=== PATIENT | female | born 1935 | race Caucasian/White ===

== ENCOUNTER 2018-11-18 06:14 | Inpatient (IN) | payer MEDICARE, BC ==
[2018-11-18 07:13] LABS: Basophils % (A) 0 %; Eosinophils # (A) 0.1 k/uL (0-0.7); Eosinophils % (A) 1 %; HGB 13.7 gm/dL (11.4-16.0); Lymphocytes # (A) 1.7 k/uL (1.0-4.8); Lymphocytes % (A) 18 %; MCH 30.4 pg (25.0-35.0); MCHC 32.6 g/dL (31.0-37.0); MCV 93.1 fL (80.0-100.0); Mean Platelet Volume 6.2; Monocytes # (A) 0.4 k/uL (0-1.0); Monocytes % (A) 4 %; Neutrophils # (A) 6.9 k/uL (1.3-7.7); Neutrophils % (A) 75 %; Platelet Count 271 k/uL (150-450); RBC 4.51 m/uL (3.80-5.40); RDW 13.2 % (11.5-15.5); WBC 9.2 k/uL (3.8-10.6)
--- NOTE | 2018-11-18 07:20 | XR ---
EXAMINATION TYPE: XR chest 2V DATE OF EXAM: 11/18/2018 COMPARISON: NONE HISTORY: Shortness of breath TECHNIQUE: Frontal and lateral views of the chest are obtained. FINDINGS: Underlying emphysematous changes are seen. Flattening of the diaphragms, increased retrost ernal airspace, and biapical lucency or present. Diffuse interstitial prominence is also seen. Minima l degenerative changes of the spine. Cardiomediastinal silhouette is enlarged. No pleural effusion or pneumothorax. IMPRESSION: Extensive emphysematous changes. Diffuse interstitial prominence is seen although chroni city is unknown without comparison. This could relate to chronic interstitial lung disease, interstit ial edema, or atypical pneumonia.
[2018-11-18] MEDS ORDERED: NITROGLYCERIN OINT 1 INCH/GM PACKET TOPICAL STA ×2 (07:22→07:31)
[2018-11-18] MEDS ORDERED: ASPIRIN 81 MG PO STA (07:22)
[2018-11-18 07:24] LABS: Albumin 3.8 g/dL (3.5-5.0); Total Bilirubin 1.6 mg/dL (0.2-1.3); Total Protein 6.8 g/dL (6.3-8.2)
[2018-11-18 07:27] LABS: INR 0.9 (<1.2); Partial Thromboplastin Time 23.7 sec (22.0-30.0); Prothrombin Time 9.8 sec (9.0-12.0)
--- NOTE | 2018-11-18 07:31 | ED ---
General Adult HPI - General Chief complaint: Chest Pain Stated complaint: Chest pressure Time Seen by Provider: 11/18/18 07:03 Source: patient, family, EMS, RN notes reviewed Mode of arrival: EMS Limitations: no limitations - History of Present Illness Initial comments: Patient is a pleasant 83-year-old female presenting to the emergency Department with complaints of chest pressure. Onset of symptoms was around 8:00 or so last night. Symptoms were noticed while walking stairs. Discomfort was moderate and persistent. Discomfort resolved) arrival to the emergency department and has remained so since that time. Patient did have associated dyspnea which is near resolved at this point. No nausea or diaphoresis. Patient did have similar symptoms years ago associated with previous stent. No leg pain or leg swelling. No cough or fever. Patient states her blood pressure is always high when she has come to the hospital or see her doctor. - Related Data Home Medications Medication Instructions Recorded Confirmed Aspirin EC [Ecotrin Low Dose] 81 mg PO HS 11/18/18 11/18/18 Atorvastatin Calcium [Lipitor] 10 mg PO HS 11/18/18 11/18/18 Lisinopril [Zestril] 5 mg PO DAILY 11/18/18 11/18/18 Lisinopril [Zestril] 10 mg PO HS 11/18/18 11/18/18 Metoprolol Succinate (ER) [Toprol 50 mg PO BID 11/18/18 11/18/18 Xl] Nitroglycerin Sl Tabs [Nitrostat] 0.4 mg SUBLINGUAL Q5M PRN 11/18/18 11/18/18 Spironolactone [Aldactone] 25 mg PO DAILY 11/18/18 11/18/18 Allergies Allergy/AdvReac Type Severity Reaction Status Date / Time No Known Allergies Allergy Verified 11/18/18 07:18 Review of Systems ROS Statement: Those systems with pertinent positive or pertinent negative responses have been documented in the HPI. ROS Other: All systems not noted in ROS Statement are negative. Constitutional: Denies: fever Eyes: Denies: eye pain ENT: Denies: ear pain Respiratory: Reports: dyspnea. Denies: cough Cardiovascular: Reports: as per HPI Endocrine: Denies: fatigue Gastrointestinal: Denies: abdominal pain Genitourinary: Denies: dysuria Musculoskeletal: Denies: back pain Skin: Denies: rash Neurological: Denies: weakness Past Medical History Past Medical History: Hyperlipidemia, Hypertension History of Any Multi-Drug Resistant Organisms: None Reported Past Surgical History: Heart Catheterization With Stent Past Psychological History: No Psychological Hx Reported Smoking Status: Former smoker Past Alcohol Use History: None Reported Past Drug Use History: None Reported General Exam Limitations: no limitations General appearance: alert, in no apparent distress Head exam: Present: atraumatic Eye exam: Present: normal appearance, PERRL ENT exam: Present: normal oropharynx Neck exam: Present: normal inspection Respiratory exam: Present: normal lung sounds bilaterally. Absent: chest wall tenderness Cardiovascular Exam: Present: regular rate, normal rhythm Expanded Peripheral pulses: 2+: Radial (R), Radial (L), Dorsalis Pedis (R), Dorsalis Pedis (L) GI/Abdominal exam: Present: soft. Absent: tenderness, guarding Extremities exam: Present: normal inspection. Absent: pedal edema, calf tenderness Neurological exam: Present: alert Psychiatric exam: Present: normal affect, normal mood Skin exam: Present: normal color Course Vital Signs 11/18/18 11/18/18 06:18 07:53 Temperature 97.8 F Pulse Rate 103 H 104 H Respiratory 21 18 Rate Blood Pressure 202/134 202/119 O2 Sat by Pulse 95 99 Oximetry EKG Findings - EKG Comments: EKG Findings:: EKG showed normal sinus rhythm 97. IN 190. QRS 142. QT 398. QTC 55. Normal axis. Left bundle branch block. Nonspecific ST-T. Medical Decision Making - Medical Decision Making Patient reevaluated and resting comfortably in bed. No discomfort at this time. Patient does state that she has had cold symptoms for several days that started as a sore throat however moved to her chest. Patient now has been coughing productive mucus. With chest x-ray findings patient will be covered with antibiotics as well. Patient does have mild elevation of troponin however history is concerning for an ST [facility]. Patient family updated on results and plan. Case discussed in detail with Dr. Morin, covering for hospital call, who will admit. - Lab Data Result diagrams: 11/18/18 06:54 11/18/18 06:54 Lab Results 11/18/18 11/18/18 11/18/18 Range/Units 06:54 06:54 06:54 WBC 9.2 (3.8-10.6) k/uL RBC 4.51 (3.80-5.40) m/uL Hgb 13.7 (11.4-16.0) gm/dL Hct 42.0 (34.0-46.0) % MCV 93.1 (80.0-100.0) fL MCH 30.4 (25.0-35.0) pg MCHC 32.6 (31.0-37.0) g/dL RDW 13.2 (11.5-15.5) % Plt Count 271 (150-450) k/uL Neutrophils % 75 % Lymphocytes % 18 % Monocytes % 4 % Eosinophils % 1 % Basophils % 0 % Neutrophils # 6.9 (1.3-7.7) k/uL Lymphocytes # 1.7 (1.0-4.8) k/uL Monocytes # 0.4 (0-1.0) k/uL Eosinophils # 0.1 (0-0.7) k/uL Basophils # 0.0 (0-0.2) k/uL PT 9.8 (9.0-12.0) sec INR 0.9 (<1.2) APTT 23.7 (22.0-30.0) sec D-Dimer (<0.60) mg/L FEU Sodium 140 (137-145) mmol/L Potassium 4.0 (3.5-5.1) mmol/L Chloride 105 (98-107) mmol/L Carbon Dioxide 26 (22-30) mmol/L Anion Gap 9 mmol/L BUN 20 H (7-17) mg/dL Creatinine 1.22 H (0.52-1.04) mg/dL Est GFR (CKD-EPI)AfAm 48 (>60 ml/min/1.73 sqM) Est GFR (CKD-EPI)NonAf 41 (>60 ml/min/1.73 sqM) Glucose 128 H (74-99) mg/dL Calcium 9.0 (8.4-10.2) mg/dL Magnesium (1.6-2.3) mg/dL Total Bilirubin 1.6 H (0.2-1.3) mg/dL AST 26 (14-36) U/L ALT 19 (9-52) U/L Alkaline Phosphatase 92 (38-126) U/L Troponin I (0.000-0.034) ng/mL Total Protein 6.8 (6.3-8.2) g/dL Albumin 3.8 (3.5-5.0) g/dL 11/18/18 11/18/18 11/18/18 Range/Units 06:54 06:54 06:54 WBC (3.8-10.6) k/uL RBC (3.80-5.40) m/uL Hgb (11.4-16.0) gm/dL Hct (34.0-46.0) % MCV (80.0-100.0) fL MCH (25.0-35.0) pg MCHC (31.0-37.0) g/dL RDW (11.5-15.5) % Plt Count (150-450) k/uL Neutrophils % % Lymphocytes % % Monocytes % % Eosinophils % % Basophils % % Neutrophils # (1.3-7.7) k/uL Lymphocytes # (1.0-4.8) k/uL Monocytes # (0-1.0) k/uL Eosinophils # (0-0.7) k/uL Basophils # (0-0.2) k/uL PT (9.0-12.0) sec INR (<1.2) APTT (22.0-30.0) sec D-Dimer 0.75 H (<0.60) mg/L FEU Sodium (137-145) mmol/L Potassium (3.5-5.1) mmol/L Chloride (98-107) mmol/L Carbon Dioxide (22-30) mmol/L Anion Gap mmol/L BUN (7-17) mg/dL Creatinine (0.52-1.04) mg/dL Est GFR (CKD-EPI)AfAm (>60 ml/min/1.73 sqM) Est GFR (CKD-EPI)NonAf (>60 ml/min/1.73 sqM) Glucose (74-99) mg/dL Calcium (8.4-10.2) mg/dL Magnesium 1.9 (1.6-2.3) mg/dL Total Bilirubin (0.2-1.3) mg/dL AST (14-36) U/L ALT (9-52) U/L Alkaline Phosphatase (38-126) U/L Troponin I 0.063 H* (0.000-0.034) ng/mL Total Protein (6.3-8.2) g/dL Albumin (3.5-5.0) g/dL - Radiology Data Radiology results: image reviewed (Two-view chest x-ray shows chronic emphysematous changes and interstitial prominence.) Critical Care Time Critical Care Time: Yes Total Critical Care Time: 32 Disposition Clinical Impression: NSTEMI (non-ST elevated myocardial infarction) Disposition: ADMITTED IP TO THIS [facility] Condition: Serious Is patient prescribed a controlled substance at d/c from ED?: No Referrals: Gerry Gill DO [Primary Care Provider] - 1-2 days Decision Time: 08:09
[2018-11-18] MEDS ORDERED: HEPARIN SODIUM,PORCINE 5,000 UNIT/ML 1 ML VIAL IV ONE ×2 (08:20→23:30)
[2018-11-18] MEDS ORDERED: NITROGLYCERIN SL TABS 0.4 MG TAB SUBLINGUAL PRN ×2 (08:20→12:11)
[2018-11-18] MEDS ORDERED: HEPARIN SODIUM,PORCINE 5,000 UNIT/ML 1 ML VIAL IV PRN (08:20)
[2018-11-18] MEDS ORDERED: AZITHROMYCIN 500 MG in SODIUM CHLORIDE 0.9% 250 ML IVPB STA (08:20)
[2018-11-18] MEDS ORDERED: PNEUMONIA PROTOCOL UTILIZED 1 EACH MISC PO PRN (08:20)
--- NOTE | 2018-11-18 12:10 | P.CRDCN ---
History of Present Illness Consult date: 11/18/18 History of present illness: This is a 83-year-old female with history of ischemic heart disease with previous stent placement done about 5 years ago. Apparently at that time patient of was having symptoms of shortness of breath that led for further evaluation and stent placement. Patient has done well over the last 5 years. It looks like that for the last several days patient has been having intermittent shortness of breath. Yesterday she was trying to climb status and started having shortness of breath that relieved after prolonged time with rest. Patient slept in the chair, Whole night. She did also take nitroglycerin sublingual at around 11 PM last night because he was having some discomfort. This morning at 5:00, her symptoms got worse and finally patient came to the emergency room. Patient was treated with Nitropaste and heparin with improvement of her symptoms. Patient is comfortable at this time. Her troponin values showed elevation, probably consistent with non-STEMI. Patient is advised to have a cardiac catheterization. Her EKG shows a left bundle-branch block pattern. At this point patient wants to wait until further tests come in, before deciding to have catheterization. We'll we will continue with beta blockers, nitrates, heparin and aspirin and probably Plavix. We'll wait for the results of the echocardiogram. Further recommendation will depend upon clinical course. Patient's daughter is also present during discussion with the patient. 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 History of Any Multi-Drug Resistant Organisms: None Reported Past Surgical History: Heart Catheterization With Stent Additional Past Surgical History / Comment(s): 04/09/14 PCI with stent, brain surgery to remove cyst, L clavicle surgery with hardware-since removed, skin cancer removed from upper lip, bilateral cataract removals/lens implants, colonoscopy. Past Anesthesia/Blood Transfusion Reactions: No Reported Reaction Date of Last Stent Placement:: 04/09/14 Smoking Status: Former smoker - Past Family History Father Family Medical History: Cancer Additional Family Medical History / Comment(s): Father of throat cancer at the age of 76yrs. Mother Additional Family Medical History / Comment(s): Mother at the age of 92yrs. She had ulcers and depression. Medications and Allergies Home Medications Medication Instructions Recorded Confirmed Type Aspirin EC [Ecotrin Low Dose] 81 mg PO HS 11/18/18 11/18/18 History Atorvastatin Calcium [Lipitor] 10 mg PO HS 11/18/18 11/18/18 History Lisinopril [Zestril] 5 mg PO DAILY 11/18/18 11/18/18 History Lisinopril [Zestril] 10 mg PO HS 11/18/18 11/18/18 History Metoprolol Succinate (ER) [Toprol 50 mg PO BID 11/18/18 11/18/18 History Xl] Nitroglycerin Sl Tabs [Nitrostat] 0.4 mg SUBLINGUAL Q5M PRN 11/18/18 11/18/18 History Spironolactone [Aldactone] 25 mg PO DAILY 11/18/18 11/18/18 History Allergies Allergy/AdvReac Type Severity Reaction Status Date / Time No Known Allergies Allergy Verified 11/18/18 07:18 Physical Exam Vitals: Vital Signs Temp Pulse Resp BP Pulse Ox 11/18/18 08:30 80 27 H 205/115 97 11/18/18 08:00 91 7 L 207/119 96 11/18/18 07:53 104 H 18 202/119 99 11/18/18 07:30 98 7 L 209/133 95 11/18/18 07:00 100 15 215/124 11/18/18 06:30 202/134 96 11/18/18 06:20 93 L 11/18/18 06:18 97.8 F 103 H 21 202/134 95 Intake and Output 11/17/18 11/18/18 11/18/18 22:59 06:59 14:59 Other: Weight 58.967 kg GENERAL EXAM: Patient is alert and oriented and doesn't appear to be in any acute distress HEENT: Normocephalic. Normal reaction of pupils, equal size, normal range of extraocular motion. No erythema or exudates in the throat. NECK: No masses, no nuchal rigidity. CHEST: No chest wall deformity. LUNGS: Equal air entry with no crackles or wheeze. HEART: S1 and S2 normal with no audible mumurs or gallops. Regular rhythm, femorals equal on both sides.. ABDOMEN: No hepatosplenomegaly, normal bowel sounds, no guarding or rigidity. SKIN: No rashes CENTRAL NERVOUS SYSTEM: No focal deficits. EXTREMITIES: No cyanosis, clubbing or edema. Results 11/18/18 06:54 11/18/18 06:54 Cardiac Enzymes 11/18/18 11/18/18 11/18/18 Range/Units 06:54 06:54 08:49 AST 26 (14-36) U/L Troponin I 0.063 H* 0.847 H* (0.000-0.034) ng/mL Coagulation 11/18/18 11/18/18 Range/Units 06:54 08:49 PT 9.8 (9.0-12.0) sec APTT 23.7 23.7 (22.0-30.0) sec CBC 11/18/18 Range/Units 06:54 WBC 9.2 (3.8-10.6) k/uL RBC 4.51 (3.80-5.40) m/uL Hgb 13.7 (11.4-16.0) gm/dL Hct 42.0 (34.0-46.0) % Plt Count 271 (150-450) k/uL Comprehensive Metabolic Panel 11/18/18 Range/Units 06:54 Sodium 140 (137-145) mmol/L Potassium 4.0 (3.5-5.1) mmol/L Chloride 105 (98-107) mmol/L Carbon Dioxide 26 (22-30) mmol/L BUN 20 H (7-17) mg/dL Creatinine 1.22 H (0.52-1.04) mg/dL Glucose 128 H (74-99) mg/dL Calcium 9.0 (8.4-10.2) mg/dL AST 26 (14-36) U/L ALT 19 (9-52) U/L Alkaline Phosphatase 92 (38-126) U/L Total Protein 6.8 (6.3-8.2) g/dL Albumin 3.8 (3.5-5.0) g/dL Current Medications Generic Name Dose Route Start Last Admin Trade Name Freq PRN Reason Stop Dose Admin Albuterol/Ipratropium 3 ml 11/18/18 08:20 Duoneb 0.5 Mg-3 Mg/3 Ml Soln INHALATION RT-Q4H PRN shortness of breath Aspirin 325 mg 11/19/18 09:00 Aspirin PO DAILY [facility] Azithromycin 500 mg 11/19/18 09:00 Zithromax PO DAILY [facility] Heparin Sodium (Porcine) 0 unit 11/18/18 08:20 Heparin IV Q6HR PRN Low PTT Protocol Ceftriaxone Sodium 1 gm/ 50 mls @ 100 mls/hr 11/19/18 09:00 Sodium Chloride IVPB 11/22/18 09:01 Q24HR JOSE Heparin Sodium/Sodium Chloride 250 mls @ 7.076 mls/hr 11/18/18 08:30 25,000 unit/ Sodium Chloride IV .Q24H JOSE Protocol 12 UNITS/KG/HR Miscellaneous Information 1 each 11/18/18 08:20 Pneumonia Protocol Utilized PO ONCE PRN Per Protocol Nitroglycerin 1 inch 11/18/18 12:00 Nitro-Bid Oint TOPICAL Q6HR [facility] Nitroglycerin 0.4 mg 11/18/18 08:20 Nitrostat SUBLINGUAL Q5M PRN Chest Pain Intake and Output 11/17/18 11/18/18 11/18/18 22:59 06:59 14:59 Other: Weight 58.967 kg 11/18/18 06:54 11/18/18 06:54 EKG Interpretations (text) Sinus rhythm with a left bundle branch block pattern Assessment and Plan (1) Ischemic heart disease Current Visit: Yes Status: Acute Code(s): I25.9 - CHRONIC ISCHEMIC HEART DISEASE, UNSPECIFIED SNOMED Code(s): 818733230 (2) NSTEMI (non-ST elevated myocardial infarction) Current Visit: Yes Status: Acute Code(s): I21.4 - NON-ST ELEVATION (NSTEMI) MYOCARDIAL INFARCTION SNOMED Code(s): 48950712 (3) Chronic renal failure Current Visit: Yes Status: Acute Code(s): N18.9 - CHRONIC KIDNEY DISEASE, UNSPECIFIED SNOMED Code(s): 75846510 Plan: Continue with the nitrates, beta blockers, aspirin, Plavix and heparin. Follow echocardiogram reports. Patient is advised to have a cardiac catheterization but at this time, Patient wants to wait until further reports coming. Prognosis is guarded
[2018-11-18] MEDS ORDERED: FUROSEMIDE 10 MG/ML 4 ML VIAL IV SCH (12:30)
[2018-11-18] MEDS: HEPARIN SOD,PORK IN 0.45% NACL 25,000 UNIT in 0.45% NACL 1 250ML.BAG IV SCH ×2 (13:34→23:40)
[2018-11-18] MEDS: NITROGLYCERIN OINT 1 INCH/GM PACKET TOPICAL SCH ×3 (13:34→23:47)
[2018-11-18] MEDS ORDERED: fentaNYL (PF) 50 MCG/ML 2 ML AMP ONE (14:21)
[2018-11-18] MEDS ORDERED: VERAPAMIL 2.5 MG/ML 2 ML AMP ONE (14:21)
[2018-11-18] MEDS ORDERED: LIDOCAINE 1% INJ 10MG/ML (20 ML MDV) ONE (14:21)
[2018-11-18] MEDS ORDERED: HEPARIN SODIUM 1,000 UN/ML (10ML VL) ONE (14:22)
--- NOTE | 2018-11-18 14:29 | P.HPIM ---
History of Present Illness 81-year-old the pleasant female with known history of coronary disease and stenting at 5 years ago came in with comments of shortness of breath and palpitations patient has similar symptoms in the past patient was complaining of orthopnea as well. Patient does have pulmonary edema on the chest x-ray does have an elevated troponins of 0.845 and patient denied any obvious chest pain patient denied any nausea lightheadedness denied any cough., EKG showed left bundle branch block pattern. Patient was treated with nitro paste and IV heparin and patient was recommended to have cardiac catheterization patient is still let considering that patient and family has a lot of patience regarding Cardiac catheterization which I'm able to answer. She started having symptoms the last night and the patient has shortness of breath with ambulation. 's blood pressures found to be very high in systolics of 200 patient blood pressur es normally high as per the patient. During her last hospitalization it went up to as high as 300 Review of Systems REVIEW OF SYSTEMS: CONSTITUTIONAL: No fever, no malaise, no fatigue. HEENT: No recent visual problems or hearing problems. Denied any sore throat. CARDIOVASCULAR:no syncope. PULMONARY: no cough, no hemoptysis. GASTROINTESTINAL: No diarrhea, no nausea, no vomiting, no abdominal pain. NEUROLOGICAL: No headaches, no weakness, no numbness. HEMATOLOGICAL: Denies any bleeding or petechiae. GENITOURINARY: Denies any burning micturition, frequency, or urgency. MUSCULOSKELETAL/RHEUMATOLOGICAL: Denies any joint pain, swelling, or any muscle pain. ENDOCRINE: Denies any polyuria or polydipsia. The rest of the 14-point review of systems is negative. 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 History of Any Multi-Drug Resistant Organisms: None Reported Past Surgical History: Heart Catheterization With Stent Additional Past Surgical History / Comment(s): 04/09/14 PCI with stent, brain surgery to remove cyst, L clavicle surgery with hardware-since removed, skin cancer removed from upper lip, bilateral cataract removals/lens implants, colonoscopy. Past Anesthesia/Blood Transfusion Reactions: No Reported Reaction Date of Last Stent Placement:: 04/09/14 Smoking Status: Former smoker - Past Family History Father Family Medical History: Cancer Additional Family Medical History / Comment(s): Father of throat cancer at the age of 76yrs. Mother Additional Family Medical History / Comment(s): Mother at the age of 92yrs. She had ulcers and depression. Medications and Allergies Home Medications Medication Instructions Recorded Confirmed Type Aspirin EC [Ecotrin Low Dose] 81 mg PO HS 11/18/18 11/18/18 History Atorvastatin Calcium [Lipitor] 10 mg PO HS 11/18/18 11/18/18 History Lisinopril [Zestril] 5 mg PO DAILY 11/18/18 11/18/18 History Lisinopril [Zestril] 10 mg PO HS 11/18/18 11/18/18 History Metoprolol Succinate (ER) [Toprol 50 mg PO BID 11/18/18 11/18/18 History Xl] Nitroglycerin Sl Tabs [Nitrostat] 0.4 mg SUBLINGUAL Q5M PRN 11/18/18 11/18/18 History Spironolactone [Aldactone] 25 mg PO DAILY 11/18/18 11/18/18 History Allergies Allergy/AdvReac Type Severity Reaction Status Date / Time No Known Allergies Allergy Verified 11/18/18 07:18 Physical Exam Vitals: Vital Signs Temp Pulse Resp BP Pulse Ox 11/18/18 12:18 102 H 26 H 179/113 11/18/18 12:00 102 H 26 H 179/113 11/18/18 11:30 92 20 189/106 11/18/18 11:00 82 20 186/112 96 11/18/18 10:30 88 17 198/111 96 11/18/18 10:00 81 16 186/112 96 11/18/18 09:30 86 12 193/110 11/18/18 09:00 84 27 H 196/102 97 11/18/18 08:30 80 27 H 205/115 97 11/18/18 08:00 91 7 L 207/119 96 11/18/18 07:53 104 H 18 202/119 99 11/18/18 07:30 98 7 L 209/133 95 11/18/18 07:00 100 15 215/124 11/18/18 06:30 202/134 96 11/18/18 06:20 93 L 11/18/18 06:18 97.8 F 103 H 21 202/134 95 Intake and Output 11/17/18 11/18/18 11/18/18 22:59 06:59 14:59 Other: Weight 58.967 kg PHYSICAL EXAMINATION: GENERAL: The patient is alert and oriented x3, not in any acute distress. Well developed, well nourished. HEENT: Pupils are round and equally reacting to light. EOMI. No scleral icterus. No conjunctival pallor. Normocephalic, atraumatic. No pharyngeal erythema. No thyromegaly. CARDIOVASCULAR: S1 and S2 present. No murmurs, rubs, or gallops. As have elevated JVD PULMONARY: Does have bibasilar crackles. ABDOMEN: Soft, nontender, nondistended, normoactive bowel sounds. No palpable organomegaly. MUSCULOSKELETAL: No joint swelling or deformity. EXTREMITIES: No cyanosis, clubbing, or pedal edema. NEUROLOGICAL: Gross neurological examination did not reveal any focal deficits. SKIN: No rashes. Results CBC & Chem 7: 11/18/18 06:54 11/18/18 06:54 Labs: Abnormal Lab Results - Last 24 Hours (Table) 11/18/18 11/18/18 11/18/18 Range/Units 06:54 06:54 06:54 D-Dimer 0.75 H (<0.60) mg/L FEU BUN 20 H (7-17) mg/dL Creatinine 1.22 H (0.52-1.04) mg/dL Glucose 128 H (74-99) mg/dL Total Bilirubin 1.6 H (0.2-1.3) mg/dL Troponin I 0.063 H* (0.000-0.034) ng/mL 11/18/18 Range/Units 08:49 D-Dimer (<0.60) mg/L FEU BUN (7-17) mg/dL Creatinine (0.52-1.04) mg/dL Glucose (74-99) mg/dL Total Bilirubin (0.2-1.3) mg/dL Troponin I 0.847 H* (0.000-0.034) ng/mL Thrombosis Risk Factor Assmnt - Choose All That Apply Any of the Below Risk Factors Present?: Yes Each Factor Represents 1 point: Acute SD Other Risk Factors: Yes Each Risk Factor Represents 2 Points: Malignancy Each Risk Factor Represents 3 Points: Age 75 years or older Other congenital or acquired thrombophilia - If yes, enter type in comment: No Thrombosis Risk Factor Assessment Total Risk Factor Score: 6 Thrombosis Risk Factor Assessment Level: High Risk Assessment and Plan Plan: -Shortness of breath, palpitations anginal equal: Nondistended mitral infarction cannot be ruled out patient does have elevated troponin and initial one being 0.063 second one 0.847 patient was recommended to have cardiac catheterization patient didn't make any dictation yet patient was started on beta don lisinopril antiplatelet therapy at this time. -Shortness of breath: Secondary to congestive heart failure probably has systolic dysfunction can be acute with pulmonary edema patient was started on Lasix -Sinus tachycardia for which patient was started on beta don can be related to myocardial infarction as mentioned above -Renal failure unsure whether patient has acute on chronic kidney disease, patient does have heart failure exacerbation can be acute kidney injury from that and expected to improve with IV Lasix patient was started on IV Lasix. Echocardiogram is being obtained -Elevated d-dimer which is a nonspecific test pretest probability for pulmonary embolism in her situation is low considering that we have an alternate diagnosis of pulmonary edema causing shortness of breath I do not believe CT angios of the the chest is necessary at this time. -Uncontrolled accelerated hypertension I cannot rule out hypertensive emergency testing her chest pain myocardial infarction pulmonary edema. Her blood pressures come down because of which I do not believe patient will require IV nitroglycerin at this time lisinopril will be continued along with beta don Patient will need pharmacologic prophylaxis
--- NOTE | 2018-11-18 14:30 | P.DS ---
Providers Date of admission: 11/18/18 08:20 Attending physician: Gregory Morin Consults: 11/18/18 08:20 Consult Physician Urgent Consulting Provider: Rhett Ortez Consult Reason/Comments: nstemi Do you want consulting provider notified?: Yes Primary care physician: Gerry Gill Hospital Course: As mentioned in HPI Patient Condition at Discharge: Serious Plan - Discharge Summary Discharge Rx Participant: No New Discharge Prescriptions: No Action Spironolactone [Aldactone] 25 mg PO DAILY Nitroglycerin Sl Tabs [Nitrostat] 0.4 mg SUBLINGUAL Q5M PRN PRN Reason: Chest Pain Lisinopril [Zestril] 10 mg PO HS Lisinopril [Zestril] 5 mg PO DAILY Metoprolol Succinate (ER) [Toprol Xl] 50 mg PO BID Atorvastatin Calcium [Lipitor] 10 mg PO HS Aspirin EC [Ecotrin Low Dose] 81 mg PO HS Discharge Medication List Aspirin EC [Ecotrin Low Dose] 81 mg PO HS 11/18/18 [History] Atorvastatin Calcium [Lipitor] 10 mg PO HS 11/18/18 [History] Lisinopril [Zestril] 5 mg PO DAILY 11/18/18 [History] Lisinopril [Zestril] 10 mg PO HS 11/18/18 [History] Metoprolol Succinate (ER) [Toprol Xl] 50 mg PO BID 11/18/18 [History] Nitroglycerin Sl Tabs [Nitrostat] 0.4 mg SUBLINGUAL Q5M PRN 11/18/18 [History] Spironolactone [Aldactone] 25 mg PO DAILY 11/18/18 [History] Follow up Appointment(s)/Referral(s): Gerry Gill DO [Primary Care Provider] - 1-2 days
[2018-11-18] MEDS ORDERED: METOPROLOL TARTRATE 5 MG/5 ML VIAL IVP ONE ×2 (14:37→14:41)
[2018-11-18] MEDS ORDERED: MIDAZOLAM (PF) 2 MG/2 ML VIAL IVP ONE (14:40)
[2018-11-18] MEDS ORDERED: fentaNYL (PF) 50 MCG/ML 2 ML AMP IV ONE (14:40)
[2018-11-18] MEDS ORDERED: IV FLUID CONTINUATION 350 ML IV ONE (14:41)
[2018-11-18] MEDS ORDERED: LIDOCAINE 1% INJ 10MG/ML (20 ML MDV) SQ ONE (14:44)
[2018-11-18] MEDS ORDERED: NITROGLYCERIN OINT 1 INCH/GM PACKET TOPICAL ONE (14:49)
[2018-11-18] MEDS ORDERED: IOPAMIDOL-370 125ML BTL INJ ONE (14:56)
[2018-11-18] MEDS ORDERED: amLODIPine 5 MG TAB ONE (14:59)
[2018-11-18] MEDS ORDERED: amLODIPine 5 MG TAB PO ONE (15:01)
[2018-11-18] MEDS ORDERED: RX INFO: IV CONTRAST WAS GIVEN 1 EACH MISC MISCELLANE PRN (15:08)
--- NOTE | 2018-11-18 15:21 | P.CARDCATH ---
Date of Procedure: 11/18/18 Preoperative Diagnosis: Non-STEMI Postoperative Diagnosis: Mild diffuse coronary artery disease without any critical lesions Procedure(s) Performed: Left heart catheterization without left ventriculography Description of Procedure: HISTORY: This is a 83-year-old female with history of ischemic heart disease and previous stent placement of the left anterior descending coronary artery who came to the hospital with complaints of increasing exertional shortness of breath over the last several days. Yesterday evening at 4:00 patient had more severe episode of shortness of breath. She is also complaining of some right arm discomfort. This morning at 5:00 patient called ambulance because of severe shortness of breath and was brought to the hospital. Her EKG showed left bundle-branch block. Her troponins were mildly elevated. In view of her previous coronary artery disease and abnormal troponins and ongoing symptoms, patient is advised to have cardiac catheterization for definitive diagnosis. CONSENT:I have discussed the risks, benefits and alternative therapies for the above-mentioned procedure and for both sedation/analgesia as well as necessary blood product administration, if indicated, as they pertain to this patient. The patient has indicated understanding and acceptance of the risks and procedures discussed. PROCEDURE: Patient was brought to the lab in a fasting state. Patient was given some IV sedation. The right groin is infiltrated with lidocaine and right femoral artery was entered using Seldinger technique. A 6-[place] catheter was left in place and selective coronary arteriography was performed. Patient tolerated the procedure well. Femoral angiogram was performed and Angio-Seal was applied for hemostasis. No immediate complications were noted and patient was transferred to [facility] in a stable condition Conscious Sedation: Versed 0.5mg Fentanyl 25 g Duration 20minutes HEMODYNAMICS: Aortic pressure is about 160-180/9o to 100. Patient received IV Lopressor and Nitropaste and also Norvasc. Left ankle end-diastolic pressure is about 12-16 SELECTIVE CORONARY ARTERIOGRAPHY: LEFT MAIN: Normal length and free of occlusive disease THE LEFT ANTERIOR DESCENDING CORONARY ARTERY:. This is a good caliber vessel with patent stent in the proximal portion. There is about 30-40% narrowing of the stent in the proximal portion . The mid LAD also has about 30-40% lesion. However there doesn't seem to be any critical lesion in the LAD or its branches. The diagonal branch has mild disease proximally. THE LEFT CIRCUMFLEX AND IS CORONARY ARTERY: This is a good caliber vessel giving rise good-sized OM branch. The OM branch is about 30% stenosis proximally. There is calcification noted in the coronary system THE RIGHT CORONARY ARTERY: This is a good caliber vessel giving rise good-sized PDA and PLV. There is mild diffuse disease in the mid and distal portion of the LAD with areas of about 30-40% stenosis. No critical lesions noted LEFT VENTRICULOGRAPHY:. Not performed FINAL IMPRESSION:. Noncritical diffuse disease with patent stent in the LAD PLAN:. Medical therapy and this factor modification PROGNOSIS:. Good
[2018-11-18] MEDS: SODIUM CHLORIDE 0.9% 1,000 ML IV SCH ×2 (16:23→17:31)
[2018-11-18] MEDS: cloNIDine HCL 0.1 MG TAB PO SCH (16:46)
--- NOTE | 2018-11-18 19:34 | ECHOF ---
Referral Reason:nstemi MEASUREMENTS -------- HEIGHT: 157.5 cm WEIGHT: 59.0 kg BP: 202/119 RVIDd: 2.4 cm (< 3.3) IVSd: 1.6 cm (0.6 - 1.1) LVIDd: 4.1 cm (3.9 - 5.3) LVPWd: 1.7 cm (0.6 - 1.1) IVSs: 1.8 cm LVIDs: 3.4 cm LVPWs: 1.8 cm LAESV Index (A-L): 43.95 ml/m Ao Diam: 2.6 cm (2.0 - 3.7) AV Cusp: 1.7 cm (1.5 - 2.6) LA Diam: 4.5 cm (2.7 - 3.8) EPSS: 1.2 cm MV E Evans: 1.07 m/s MV DecT: 91 ms MV A Evans: 0.77 m/s MV E/A Ratio: 1.38 AR PHT: 834 ms RAP: 5.00 mmHg RVSP: 37.06 mmHg %FS: 20.33 % EDV(Teich): 132.22 ml EF(Teich): 41.23 % ESV(Teich): 77.70 ml IVSd: 1.59 cm (0.6 - 1.1) IVSs: 1.93 cm LVIDd: 5.25 cm (3.9 - 5.3) LVIDs: 4.18 cm LVPWd: 1.44 cm (0.6 - 1.1) LVPWs: 1.67 cm MV EF SLOPE: 135.55 mm/s (70 - 150) MV EXCURSION: 1.44 cm (> 18.000) SV(Teich): 54.52 ml FINDINGS -------- LBBB This was a technically good study. The left ventricular size is normal. There is moderate concentric left ventricular hypertrophy. O verall left ventricular systolic function is moderate-severely impaired with, an EF between 30 - 35 % . Can not exclude Noncompaction cardiomyopathy. Basal anterior LV wall motion is hypokinetic. Basal inferior LV wall motion is hypokinetic. Basal inferoseptal LV wall motion is hypokinetic. Basal anteroseptal LV wall motion is hypokinetic. Mid anterior LV wall motion is hypokinetic. Mid inferior LV wall motion is hypokinetic. Mid inferoseptal LV wall motion is hypokinetic. Mid anteroseptal LV wall motion is hypokinetic. Apical inferior LV wall motion is hypokinetic. The right ventricle is normal in size. Left atrium is severely dilated by volume. The right atrial size is normal. Interatrial and interventricular septum intact. Trace amount of aortic regurgitation. Can't exclude possible bicuspid aortic valve. Mild mitral annular calcification present. Moderate mitral regurgitation is present. Mild tricuspid regurgitation present. There is mild pulmonary hypertension. The right ventricular systolic pressure, as measured by Doppler, is 37.06mmHg. The aortic root size is normal. The inferior vena cava was not well visualized. There is a small, generalized pericardial effusion present. CONCLUSIONS -------- 1. LBBB 2. This was a technically good study. 3. The left ventricular size is normal. 4. There is moderate concentric left ventricular hypertrophy. 5. Overall left ventricular systolic function is moderate-severely impaired with, an EF between 30 - 35 %. 6. Can not exclude Noncompaction cardiomyopathy. 7. Basal anterior LV wall motion is hypokinetic. 8. Basal inferior LV wall motion is hypokinetic. 9. Basal inferoseptal LV wall motion is hypokinetic. 10. Basal anteroseptal LV wall motion is hypokinetic. 11. Mid anterior LV wall motion is hypokinetic. 12. Mid inferior LV wall motion is hypokinetic. 13. Mid inferoseptal LV wall motion is hypokinetic. 14. Mid anteroseptal LV wall motion is hypokinetic. 15. Apical inferior LV wall motion is hypokinetic. 16. The right ventricle is normal in size. 17. Left atrium is severely dilated by volume. 18. The right atrial size is normal. 19. Interatrial and interventricular septum intact. 20. Trace amount of aortic regurgitation. 21. Can't exclude possible bicuspid aortic valve. 22. Mild mitral annular calcification present. 23. Moderate mitral regurgitation is present. 24. Mild tricuspid regurgitation present. 25. There is mild pulmonary hypertension. 26. The right ventricular systolic pressure, as measured by Doppler, is 37.06mmHg. 27. The aortic root size is normal. 28. The inferior vena cava was not well visualized. PUMP INSTALLER: Vanita Whaley RDCS
[2018-11-18] MEDS: ATORVASTATIN 10 MG TAB PO SCH (20:10)
[2018-11-18] MEDS: FUROSEMIDE 10 MG/ML 2 ML VIAL IV SCH (20:10)
[2018-11-18] MEDS: METOPROLOL SUCCINATE (ER) 50 MG TAB.ER.24H PO SCH (20:10)
[2018-11-18] MEDS: LISINOPRIL 10 MG TAB PO SCH (20:10)
[2018-11-18] MEDS: ASPIRIN 81 MG PO SCH (20:10)
[2018-11-18] MEDS ORDERED: DILTIAZEM DRIP BOLUS FROM BAG 1 MG SOLN IV ONE (23:08)
[2018-11-18] MEDS ORDERED: DILTIAZEM 125 MG in SODIUM CHLORIDE 0.9% 100 ML IV SCH (23:30)
[2018-11-18] MEDS ORDERED: HEPARIN SOD,PORK IN 0.45% NACL 25,000 UNIT in 0.45% NACL 1 250ML.BAG IV SCH (23:30)
[2018-11-19 03:37] LABS: Mean Platelet Volume 6.7; Platelet Count 255 k/uL (150-450)
[2018-11-19 03:59] LABS: Calcium 8.5 mg/dL (8.4-10.2); Potassium 4.2 mmol/L (3.5-5.1)
[2018-11-19] MEDS ORDERED: HEPARIN SODIUM,PORCINE 5,000 UNIT/ML 1 ML VIAL IV PRN (05:00)
[2018-11-19] MEDS: NITROGLYCERIN OINT 1 INCH/GM PACKET TOPICAL SCH (05:18)
[2018-11-19] MEDS ORDERED: ASPIRIN 325 MG TAB PO SCH (09:00)
[2018-11-19] MEDS ORDERED: AZITHROMYCIN 500 MG TAB PO SCH (09:00)
--- NOTE | 2018-11-19 09:21 | XR ---
EXAMINATION TYPE: XR chest 2V DATE OF EXAM: 11/19/2018 COMPARISON: Prior chest x-ray 11/18/2018 HISTORY: Pneumonia TECHNIQUE: Frontal and lateral views of the chest are obtained. FINDINGS: Aorta is dense and tortuous. Heart is enlarged and stable. Hyperinflation is noted within the lungs. There are overlying cardiac leads. No evident pneumothorax or pleural effusion. Luminary v ascularity and maria eugenia are stable. There is improvement in the interstitium. Some minimal blunting the p osterior costophrenic angles persists. IMPRESSION: Improvement in patient's volume status.
[2018-11-19] MEDS: FUROSEMIDE 10 MG/ML 2 ML VIAL IV SCH (09:22)
[2018-11-19] MEDS: LISINOPRIL 5 MG TAB PO SCH (09:22)
[2018-11-19] MEDS: cloNIDine HCL 0.1 MG TAB PO SCH (09:22)
[2018-11-19] MEDS: METOPROLOL SUCCINATE (ER) 50 MG TAB.ER.24H PO SCH (09:22)
[2018-11-19] MEDS ORDERED: APIXABAN 5 MG TAB PO SCH (12:00)
[2018-11-19] MEDS ORDERED: DEXTROSE 5% IN WATER 100 ML with AMIODARONE 150 MG IV ONE (12:15)
[2018-11-19] MEDS ORDERED: AMIODARONE 360 MG in DEXTROSE 5% IN WATER 200 ML IV ONE ×2 (12:30)
[2018-11-19] MEDS: APIXABAN 2.5 MG TABLET PO SCH ×2 (13:14→20:07)
--- NOTE | 2018-11-19 14:38 | P.PN ---
Subjective Progress Note Date: 11/19/18 This is a 83-year-old female with history of ischemic heart disease with previous stent placement done about 5 years ago. Apparently at that time patient of was having symptoms of shortness of breath that led for further evaluation and stent placement. Patient has done well over the last 5 years. It looks like that for the last several days patient has been having intermittent shortness of breath. Yesterday she was trying to climb status and started having shortness of breath that relieved after prolonged time with rest. Patient slept in the chair, Whole night. She did also take nitroglycerin sublingual at around 11 PM last night because he was having some discomfort. This morning at 5:00, her symptoms got worse and finally patient came to the emergency room. Patient was treated with Nitropaste and heparin with improvement of her symptoms. Patient is comfortable at this time. Her troponin values showed elevation, probably consistent with non-STEMI. Patient is advised to have a cardiac catheterization. Her EKG shows a left bundle-branch block pattern. At this point patient wants to wait until further tests come in, before deciding to have catheterization. We'll we will continue with beta blockers, nitrates, heparin and aspirin and probably Plavix. We'll wait for the results of the echocardiogram. Further recommendation will depend upon clinical course. Patient's daughter is also present during discussion with the patient. 11/19/2018 Patient was seen and examined this morning, underwent a cardiac catheterization yesterday which revealed mild diffuse coronary artery disease without any critical lesions.A she went into atrial fibrillation with rapid ventricular response through the night last night, continues to be in A. fib at this time. We have initiated IV amiodarone drip, and educated the patient regarding the need for anticoagulation. Patient also has a significant amount of wheezingtoday. She is quite eager to be discharged home however has been e ncouraged to stay in the hospital at least another 24 hours. Objective - Vital Signs Vital signs: Vital Signs Temp 98.2 F 11/19/18 12:28 Pulse 72 11/19/18 13:15 Resp 18 11/19/18 12:28 BP 123/71 11/19/18 13:15 Pulse Ox 92 L 11/19/18 12:28 Intake & Output 11/18/18 11/19/18 11/19/18 18:59 06:59 18:59 Intake Total 290 101.895 960 Output Total 450 Balance -160 101.895 960 Weight 56.9 kg Intake: IV 50 600 Sodium Chloride 0.9% 1, 0 600 000 ml @ 75 mls/hr IV . [id number] [facility] Rx#:[id number] Intake, IV Titration 101.895 Amount Heparin Sod,Pork in 0.45% 71.468 NaCl 25,000 unit In 0.45 % NaCl 1 250ml.bag @ 12 UNITS/KG/HR 7.076 mls/hr IV .Q24H [facility] Rx#: [id number] Heparin Sod,Pork in 0.45% 30.427 NaCl 25,000 unit In 0.45 % NaCl 1 250ml.bag @ 12 UNITS/KG/HR 7.076 mls/hr IV .Q24H [facility] Rx#: [id number] Oral 240 360 Output: Urine 450 Other: Voiding Method Toilet # Voids 1 1 - Exam GENERAL EXAM: Patient is alert and oriented and doesn't appear to be in any acute distress HEENT: Normocephalic. Normal reaction of pupils, equal size, normal range of extraocular motion. No erythema or exudates in the throat. NECK: No masses, no nuchal rigidity. CHEST: No chest wall deformity. LUNGS: lungs reveal scattered wheezes with coarse rhonchi throughout. HEART: S1 and S2 irregularly irregular. ABDOMEN: No hepatosplenomegaly, normal bowel sounds, no guarding or rigidity. SKIN: No rashes CENTRAL NERVOUS SYSTEM: No focal deficits. EXTREMITIES: No cyanosis, clubbing or edema. Right groin soft, no evidence of any hematoma. - Labs CBC & Chem 7: 11/19/18 03:20 11/19/18 03:20 Labs: Abnormal Lab Results - Last 24 Hours (Table) 11/18/18 11/19/18 11/19/18 Range/Units 18:18 03:20 03:20 APTT 34.6 H (22.0-30.0) sec BUN 21 H (7-17) mg/dL Creatinine 1.19 H (0.52-1.04) mg/dL Glucose 109 H (74-99) mg/dL Troponin I 30.300 H* (0.000-0.034) ng/mL HDL Cholesterol 66 H (40-60) mg/dL 11/19/18 Range/Units 09:25 APTT 65.2 H (22.0-30.0) sec BUN (7-17) mg/dL Creatinine (0.52-1.04) mg/dL Glucose (74-99) mg/dL Troponin I (0.000-0.034) ng/mL HDL Cholesterol (40-60) mg/dL Microbiology - Last 24 Hours (Table) 11/18/18 08:58 Blood Culture - Preliminary Blood No Growth after 24 hours Assessment and Plan Plan: assessment and plan #1 shortness of breath with associated palpitations and chest discomfort, status post cardiac catheterization which did not reveal any significant obstructive coronary artery disease. #2 atrial fibrillation, paroxysmal, currently in normal sinus rhythm. #3 acute on chronic renal failure 4 hypertension Plan We will start the patient on IV amiodarone and from tomorrow change management lead to oral amiodarone. We will start the patient on Eliquis twice a day, she has been educated regarding the importance of stroke prevention in atrial fibrillation.patient is currently on antibiotics for a possible acute tracheobronchitis. We will continue to monitor the patient for another 24 hours. DNP note has been reviewed, I agree with a documented findings and plan of care. Patient was seen and examined.
--- NOTE | 2018-11-19 15:30 | P.PN ---
Subjective patient was admitted for a possible non-ST elevation myocardial infarction. Patient had cardiac catheterization which did not show any critical stenosis of any of the vasculature with diffuse the atherosclerotic vascular disease was appreciated patient will be maximized on medical therapy troponin although was elevated to about 30 patient has significant wall motion abnormalities on the echocardiogram. Ejection fraction of 30-35% patient was in heart failure exacerbation better now. Respiratory status improved Constitutional: Denied any fatigue denied any fever. Cardio vascular: denied any chest pain, palpitations Gastrointestinal denied any nausea vomiting Pulmonary:improved respiratory status Neurologic denied any new focal deficits All inpatient medications were reviewed and appropriate changes in these medications as dictated in the interval history and assessment and plan. Objective - Vital Signs Vital signs: Vital Signs Temp 98.2 F 11/19/18 12:28 Pulse 72 11/19/18 13:15 Resp 18 11/19/18 12:28 BP 123/71 11/19/18 13:15 Pulse Ox 92 L 11/19/18 12:28 Intake & Output 11/18/18 11/19/18 11/19/18 18:59 06:59 18:59 Intake Total 290 101.895 960 Output Total 450 Balance -160 101.895 960 Weight 56.9 kg Intake: IV 50 600 Sodium Chloride 0.9% 1, 0 600 000 ml @ 75 mls/hr IV . [id number] [facility] Rx#:[id number] Intake, IV Titration 101.895 Amount Heparin Sod,Pork in 0.45% 71.468 NaCl 25,000 unit In 0.45 % NaCl 1 250ml.bag @ 12 UNITS/KG/HR 7.076 mls/hr IV .Q24H [facility] Rx#: [id number] Heparin Sod,Pork in 0.45% 30.427 NaCl 25,000 unit In 0.45 % NaCl 1 250ml.bag @ 12 UNITS/KG/HR 7.076 mls/hr IV .Q24H [facility] Rx#: [id number] Oral 240 360 Output: Urine 450 Other: Voiding Method Toilet # Voids 1 1 - Exam PHYSICAL EXAMINATION: GENERAL: The patient is alert and oriented x3, not in any acute distress. Well developed, well nourished. HEENT: Pupils are round and equally reacting to light. EOMI. No scleral icterus. No conjunctival pallor. Normocephalic, atraumatic. No pharyngeal erythema. No thyromegaly. CARDIOVASCULAR: S1 and S2 present. No murmurs, rubs, or gallops. JVD improved PULMONARY: crackles improved, good air entry bilateral lung willard ABDOMEN: Soft, nontender, nondistended, normoactive bowel sounds. No palpable o rganomegaly. MUSCULOSKELETAL: No joint swelling or deformity. EXTREMITIES: No cyanosis, clubbing, or pedal edema. NEUROLOGICAL: Gross neurological examination did not reveal any focal deficits. SKIN: No rashes. - Labs CBC & Chem 7: 11/19/18 03:20 11/19/18 03:20 Labs: Abnormal Lab Results - Last 24 Hours (Table) 11/18/18 11/19/18 11/19/18 Range/Units 18:18 03:20 03:20 APTT 34.6 H (22.0-30.0) sec BUN 21 H (7-17) mg/dL Creatinine 1.19 H (0.52-1.04) mg/dL Glucose 109 H (74-99) mg/dL Troponin I 30.300 H* (0.000-0.034) ng/mL HDL Cholesterol 66 H (40-60) mg/dL 11/19/18 Range/Units 09:25 APTT 65.2 H (22.0-30.0) sec BUN (7-17) mg/dL Creatinine (0.52-1.04) mg/dL Glucose (74-99) mg/dL Troponin I (0.000-0.034) ng/mL HDL Cholesterol (40-60) mg/dL Microbiology - Last 24 Hours (Table) 11/18/18 08:58 Blood Culture - Preliminary Blood No Growth after 24 hours Assessment and Plan Plan: -Shortness of breath, palpitations anginal equal: , possible non-ST elevation myocardial infarction, patient underwent cardiac catheterization catheterization reports as mentioned above no critical stenosis but diffuse atherosclerotic vascular disease congestive heart failure [place] systolic dysfunctionsystolic dysfunctionacute exacerbation continued on IV Lasix -Sinus tachycardiaimproved with beta don -Renal failure acute: Seconded and start failure chronic*dysfunction with acute exacerbation prerenal azotemia.be a competent of chronic kidney disease I cannot stage at this time -Elevated d-dimer which is a nonspecific test pretest probability for pulmonary embolism in her situation is low considering that we have an alternate diagnosis of pulmonary edema causing shortness of breath I do not believe CT angios of the the chest is necessary at this time. -Uncontrolled accelerated hypertension I cannot rule out hypertensive emergency testing her chest pain myocardial infarction pulmonary edema. Her blood pressures come down because of which I do not believe patient will require IV nitroglycerin at this time lisinopril will be continued along with beta don Patient will need pharmacologic prophylaxis
[2018-11-19] MEDS: FUROSEMIDE 20 MG TAB PO SCH (15:39)
[2018-11-19] MEDS: AMIODARONE 300 MG in DEXTROSE 5% IN WATER 250 ML IV SCH ×2 (18:30)
[2018-11-19] MEDS: METOPROLOL SUCCINATE (ER) 25 MG TAB.ER.24H PO SCH (20:05)
[2018-11-19] MEDS: LISINOPRIL 10 MG TAB PO SCH (20:05)
[2018-11-19] MEDS: ATORVASTATIN 10 MG TAB PO SCH (20:05)
[2018-11-19] MEDS: ASPIRIN 81 MG PO SCH (20:05)
[2018-11-19] MEDS ORDERED: APIXABAN 2.5 MG TABLET PO SCH (21:00)
[2018-11-19] MEDS ORDERED: FUROSEMIDE 10 MG/ML 4 ML VIAL IV STA (21:52)
[2018-11-20] MEDS: AMIODARONE 300 MG in DEXTROSE 5% IN WATER 250 ML IV SCH ×2 (03:05)
[2018-11-20 07:32] LABS: Mean Platelet Volume 6.6; Platelet Count 298 k/uL (150-450)
[2018-11-20] MEDS: FUROSEMIDE 20 MG TAB PO SCH ×2 (08:26→15:19)
[2018-11-20] MEDS: METOPROLOL SUCCINATE (ER) 25 MG TAB.ER.24H PO SCH ×2 (08:27→20:29)
[2018-11-20] MEDS: APIXABAN 2.5 MG TABLET PO SCH ×2 (08:27→20:29)
[2018-11-20] MEDS: cloNIDine HCL 0.1 MG TAB PO SCH (08:27)
[2018-11-20] MEDS: LISINOPRIL 5 MG TAB PO SCH (08:27)
[2018-11-20 11:48] LABS: Calcium 8.9 mg/dL (8.4-10.2); Potassium 4.1 mmol/L (3.5-5.1)
--- NOTE | 2018-11-20 12:54 | XR ---
EXAMINATION TYPE: XR chest 1V portable DATE OF EXAM: 11/20/2018 COMPARISON: Prior chest x-ray 11/19/2018 HISTORY: Shortness of breath TECHNIQUE: Single frontal view of the chest is obtained. FINDINGS: Patient is rotated and there are overlying cardiac leads. The heart is enlarged, heart siz e may be accentuated by rotation. No evident pneumothorax. Patchy basilar density is present. Aorta i s dense. Prominence of pulmonary artery could be due to pulmonary artery hypertension. Interstitium m ildly increased. There are prominent lung volumes. IMPRESSION: Cardiomegaly. Probable basilar atelectasis, correlate to exclude pneumonia. Difficult to exclude early interstitial edema. Additional findings above.
[2018-11-20] MEDS: DOXYCYCLINE 100 MG CAP PO SCH ×2 (13:04→20:30)
[2018-11-20] MEDS: AMIODARONE 200 MG TAB PO SCH ×2 (15:19→21:10)
[2018-11-20] MEDS ORDERED: amLODIPine 5 MG TAB PO SCH (15:43)
--- NOTE | 2018-11-20 16:56 | P.PN ---
Subjective Progress Note Date: 11/20/18 This is a 83-year-old female who was admitted to the hospital with complaints of increasing shortness of breath and right arm pain and abnormal troponin values. Patient had a cardiac catheterization and was not found any significant obstructive disease. However her troponin went up to 30. Echo Cardigan showed severely impaired LV function. Patient also went into atrial fibrillation yesterday. Patient was started on IV amiodarone and converted back to sinus rhythm. She does have underlying left bundle branch block. Patient had an episode of shortness of breath last night. She does have some expiratory wheezing also on rhonchi. She is being treated for possible pneumonia and bronchitis. We'll continue current medical therapy. We will increase the dose of TRINY inhibitor and also add amlodipine for better control of her blood pressure. We'll also review her cardiac catheterization because of her high troponin values. Prognosis is guarded Objective - Vital Signs Vital signs: Vital Signs Temp 98.0 F 11/20/18 15:28 Pulse 78 11/20/18 15:28 Resp 18 11/20/18 15:28 BP 147/92 11/20/18 15:28 Pulse Ox 93 L 11/20/18 15:28 Intake & Output 11/19/18 11/20/18 11/20/18 18:59 06:59 18:59 Intake Total 1040 10 600 Balance 1040 10 600 Weight 59.2 kg Intake: IV 600 10 80 Invasive Line 2 10 Sodium Chloride 0.9% 1, 600 80 000 ml @ 75 mls/hr IV . [id number] [facility] Rx#:[id number] Oral 440 520 Other: Voiding Method Toilet # Voids 1 1 2 # Bowel Movements 1 - Exam GENERAL EXAM: Patient is alert and oriented and doesn't appear to be in any acute distress HEENT: Normocephalic. Normal reaction of pupils, equal size, normal range of extraocular motion. No erythema or exudates in the throat. NECK: No masses, no nuchal rigidity. CHEST: No chest wall deformity. LUNGS: Expiratory rhonchi and wheezing HEART: S1 and S2 normal with no audible mumurs or gallops. Regular rhythm, femorals equal on both sides.. ABDOMEN: No hepatosplenomegaly, normal bowel sounds, no guarding or rigidity. SKIN: No rashes CENTRAL NERVOUS SYSTEM: No focal deficits. EXTREMITIES: No cyanosis, clubbing or edema. - Labs CBC & Chem 7: 11/20/18 07:03 11/20/18 07:03 Labs: Abnormal Lab Results - Last 24 Hours (Table) 11/20/18 Range/Units 07:03 Sodium 134 L (137-145) mmol/L Chloride 96 L (98-107) mmol/L Carbon Dioxide 31 H (22-30) mmol/L BUN 21 H (7-17) mg/dL Creatinine 1.35 H (0.52-1.04) mg/dL Glucose 111 H (74-99) mg/dL Microbiology - Last 24 Hours (Table) 11/18/18 08:58 Blood Culture - Preliminary Blood No Growth after 48 hours Assessment and Plan (1) Ischemic heart disease Current Visit: Yes Status: Acute Code(s): I25.9 - CHRONIC ISCHEMIC HEART DISEASE, UNSPECIFIED SNOMED Code(s): 476022633 (2) NSTEMI (non-ST elevated myocardial infarction) Current Visit: Yes Status: Acute Code(s): I21.4 - NON-ST ELEVATION (NSTEMI) MYOCARDIAL INFARCTION SNOMED Code(s): 44715802 (3) Chronic renal failure Current Visit: Yes Status: Acute Code(s): N18.9 - CHRONIC KIDNEY DISEASE, UNSPECIFIED SNOMED Code(s): 89158432 (4) Persistent atrial fibrillation Current Visit: Yes Status: Acute Code(s): I48.1 - PERSISTENT ATRIAL FIBRILLATION SNOMED Code(s): 522476723 Plan: Continue current medical therapy. Add amlodipine and increase the dose of the lisinopril. Follow-up electrolytes closely. Change to by mouth amiodarone. Further recommendation depending upon the clinical course. We'll also review her cardiac catheterization because of high troponin values.
[2018-11-20] MEDS ORDERED: IPRATROPIUM-ALBUTEROL 3 ML NEB INHALATION PRN (17:01)
--- NOTE | 2018-11-20 17:03 | P.PN ---
Subjective patient was admitted for a possible non-ST elevation myocardial infarction. Patient had cardiac catheterization which did not show any critical stenosis of any of the vasculature with diffuse the atherosclerotic vascular disease was appreciated patient will be maximized on medical therapy troponin although was elevated to about 30 patient has significant wall motion abnormalities on the echocardiogram. Ejection fraction of 30-35% patient was in heart failure exacerbation better now. Respiratory status improved 11/20/2018 Patient is comparing of shortness of breath does have significant wheeze on exam, patient went into atrial fibrillation last night because of which patient is on amiodarone drip which is being switched to oral amiodarone. Patient is rate controlled at this time. Patient was started on Eliquis. Patient has an ejection fraction of 30-35%.. Patient's serum sodium worsened and serum creatinine has is bit worse because of which I'll cut down now lisinopril doses as well as change the Lasix to oral patient's amlodipine dose will be increased for blood pressure control. Constitutional: Denied any fatigue denied any fever. Cardio vascular: denied any chest pain, palpitations Gastrointestinal denied any nausea vomiting Pulmonary: Still has significant shortness of breath Neurologic denied any new focal deficits All inpatient medications were reviewed and appropriate changes in these medications as dictated in the interval history and assessment and plan. Objective - Vital Signs Vital signs: Vital Signs Temp 98.0 F 11/20/18 15:28 Pulse 78 11/20/18 15:28 Resp 18 11/20/18 15:28 BP 147/92 11/20/18 15:28 Pulse Ox 93 L 11/20/18 15:28 Intake & Output 11/19/18 11/20/18 11/20/18 18:59 06:59 18:59 Intake Total 1040 10 600 Balance 1040 10 600 Weight 59.2 kg Intake: IV 600 10 80 Invasive Line 2 10 Sodium Chloride 0.9% 1, 600 80 000 ml @ 75 mls/hr IV . [id number] [facility] Rx#:[id number] Oral 440 520 Other: Voiding Method Toilet # Voids 1 1 2 # Bowel Movements 1 - Exam PHYSICAL EXAMINATION: GENERAL: The patient is alert and oriented x3, not in any acute distress. Well developed, well nourished. HEENT: Pupils are round and equally reacting to light. EOMI. No scleral icterus. No conjunctival pallor. Normocephalic, atraumatic. No pharyngeal erythema. No thyromegaly. CARDIOVASCULAR: S1 and S2 present. No murmurs, rubs, or gallops. JVD improved PULMONARY: Expiratory wheezing on exam ABDOMEN: Soft, nontender, nondistended, normoactive bowel sounds. No palpable organomegaly. MUSCULOSKELETAL: No joint swelling or deformity. EXTREMITIES: No cyanosis, clubbing, or pedal edema. NEUROLOGICAL: Gross neurological examination did not reveal any focal deficits. SKIN: No rashes. - Labs CBC & Chem 7: 11/20/18 07:03 11/20/18 07:03 Labs: Abnormal Lab Results - Last 24 Hours (Table) 11/20/18 Range/Units 07:03 Sodium 134 L (137-145) mmol/L Chloride 96 L (98-107) mmol/L Carbon Dioxide 31 H (22-30) mmol/L BUN 21 H (7-17) mg/dL Creatinine 1.35 H (0.52-1.04) mg/dL Glucose 111 H (74-99) mg/dL Microbiology - Last 24 Hours (Table) 11/18/18 08:58 Blood Culture - Preliminary Blood No Growth after 48 hours Assessment and Plan Plan: -Shortness of breath, palpitations anginal equal: , possible non-ST elevation myocardial infarction, patient underwent cardiac catheterization catheterization reports as mentioned above no critical stenosis but diffuse atherosclerotic vascular disease congestive heart failure, patient has chronic systolic dysfunction with acute exacerbation patient says serum sodium has gone down serum creatinine to because of which I'm cutting down the dose of Lasix and cutting down the dose of TRINY i nhibitor -Atrial fibrillation new onset started on Eliquis patient is on amiodarone -COPD with mild acute exacerbation patient was started on inhaled steroids inhalational treatments patient was started on oxygen for bronchitis -Renal failure acute: Secondary to excessive diuretic therapy will cut down the dose of Lasix and switched to -Uncontrolled accelerated hypertension patient possibly had hypertensive emergency on admission blood pressure improved now Patient will need pharmacologic prophylaxis
[2018-11-20] MEDS: SYMBICORT 160-4.5 MCG INHALER INHALATION SCH (19:58)
[2018-11-20] MEDS: ATORVASTATIN 10 MG TAB PO SCH (20:30)
[2018-11-20] MEDS: LISINOPRIL 10 MG TAB PO SCH (20:30)
[2018-11-20] MEDS ORDERED: LISINOPRIL 10 MG TAB PO SCH ×2 (21:00)
[2018-11-20] MEDS ORDERED: amLODIPine 5 MG TAB PO STA (22:01)
[2018-11-21 06:34] LABS: Mean Platelet Volume 6.9; Platelet Count 272 k/uL (150-450)
[2018-11-21 07:23] LABS: Calcium 8.6 mg/dL (8.4-10.2); Potassium 3.7 mmol/L (3.5-5.1)
[2018-11-21] MEDS: LISINOPRIL 10 MG TAB PO SCH ×2 (08:20→20:56)
[2018-11-21] MEDS: APIXABAN 2.5 MG TABLET PO SCH ×2 (08:20→20:56)
[2018-11-21] MEDS: cloNIDine HCL 0.1 MG TAB PO SCH (08:20)
[2018-11-21] MEDS: amLODIPine 10 MG TAB PO SCH (08:20)
[2018-11-21] MEDS: METOPROLOL SUCCINATE (ER) 25 MG TAB.ER.24H PO SCH ×2 (08:20→20:56)
[2018-11-21] MEDS: AMIODARONE 200 MG TAB PO SCH ×3 (08:20→21:00)
[2018-11-21] MEDS: DOXYCYCLINE 100 MG CAP PO SCH ×2 (08:24→20:56)
[2018-11-21] MEDS ORDERED: amLODIPine 5 MG TAB PO SCH ×2 (09:00)
[2018-11-21] MEDS ORDERED: FUROSEMIDE 20 MG TAB PO SCH (09:00)
[2018-11-21] MEDS: SYMBICORT 160-4.5 MCG INHALER INHALATION SCH ×2 (09:25→19:52)
--- NOTE | 2018-11-21 15:52 | P.PN ---
Subjective patient was admitted for a possible non-ST elevation myocardial infarction. Patient had cardiac catheterization which did not show any critical stenosis of any of the vasculature with diffuse the atherosclerotic vascular disease was appreciated patient will be maximized on medical therapy troponin although was elevated to about 30 patient has significant wall motion abnormalities on the echocardiogram. Ejection fraction of 30-35% patient was in heart failure exacerbation better now. Respiratory status improved 11/20/2018 Patient is comparing of shortness of breath does have significant wheeze on exam, patient went into atrial fibrillation last night because of which patient is on amiodarone drip which is being switched to oral amiodarone. Patient is rate controlled at this time. Patient was started on Eliquis. Patient has an ejection fraction of 30-35%.. Patient's serum sodium worsened and serum creatinine has is bit worse because of which I'll cut down now lisinopril doses as well as change the Lasix to oral patient's amlodipine dose will be increased for blood pressure control. 11/21/2018 Patient is presently on oral Lasix but her serum sodium has gone down to 132 to because of that reason I'll hold off on diuretic therapy. Upon ablation patient desaturated to 85% because of that I'll start her on low-dose of oral steroids if she is doing okay she will be discharged tomorrow. Patient looks much better feels much better. Constitutional: Denied any fatigue denied any fever. Cardio vascular: denied any chest pain, palpitations Gastrointestinal denied any nausea vomiting Pulmonary: Still has significant shortness of breath Neurologic denied any new focal deficits All inpatient medications were reviewed and appropriate changes in these medications as dictated in the interval history and assessment and plan. Objective - Vital Signs Vital signs: Vital Signs Temp 97.9 F 11/21/18 08:10 Pulse 76 11/21/18 12:10 Resp 17 11/21/18 12:10 BP 163/79 11/21/18 12:10 Pulse Ox 84 L 11/21/18 15:09 Intake & Output 11/20/18 11/21/18 11/21/18 18:59 06:59 18:59 Intake Total 960 240 Balance 960 240 Weight 57.3 kg Intake: IV 80 Sodium Chloride 0.9% 1, 80 000 ml @ 75 mls/hr IV . [id number] [facility] Rx#:[id number] Oral 880 240 Other: Voiding Method Toilet # Voids 2 # Bowel Movements 1 1 - Exam PHYSICAL EXAMINATION: GENERAL: The patient is alert and oriented x3, not in any acute distress. Well developed, well nourished. HEENT: Pupils are round and equally reacting to light. EOMI. No scleral icterus. No conjunctival pallor. Normocephalic, atraumatic. No pharyngeal erythema. No thyromegaly. CARDIOVASCULAR: S1 and S2 present. No murmurs, rubs, or gallops. No JVD PULMONARY: Expiratory wheezing on exam significantly improved compared to yesterday ABDOMEN: Soft, nontender, nondistended, normoactive bowel sounds. No palpable organomegaly. MUSCULOSKELETAL: No joint swelling or deformity. EXTREMITIES: No cyanosis, clubbing, or pedal edema. NEUROLOGICAL: Gross neurological examination did not reveal any focal deficits. SKIN: No rashes. - Labs CBC & Chem 7: 11/21/18 06:03 11/21/18 06:03 Labs: Abnormal Lab Results - Last 24 Hours (Table) 11/21/18 Range/Units 06:03 Sodium 132 L (137-145) mmol/L Chloride 94 L (98-107) mmol/L Carbon Dioxide 34 H (22-30) mmol/L BUN 20 H (7-17) mg/dL Creatinine 1.26 H (0.52-1.04) mg/dL Microbiology - Last 24 Hours (Table) 11/18/18 08:58 Blood Culture - Preliminary Blood No Growth after 72 hours Assessment and Plan Plan: -Shortness of breath, palpitations anginal equal: , possible non-ST elevation myocardial infarction, patient underwent cardiac catheterization catheterization reports as mentioned above no critical stenosis but diffuse atherosclerotic vascular disease congestive heart failure, patient has chronic systolic dysfunction with acute exacerbation patient says serum sodium has gone down serum creatinine went up to because of which I'm cutting down the dose of Lasix and cutting down the dose of TRINY inhibitor -Atrial fibrillation new onset started on Eliquis patient is on amiodarone -COPD with mild acute exacerbation patient was started on inhaled steroids inhalational treatments patient was started on doxycycline for bronchitis patient still desaturated because of that reason she'll be started on low-dose of for systemic steroids -Renal failure acute: Secondary to excessive diuretic therapy will , hold off on Lasix today -Uncontrolled accelerated hypertension patient possibly had hypertensive emergency on admission blood pressure improved now Patient will need pharmacologic prophylaxis
[2018-11-21] MEDS: predniSONE 20 MG TAB PO SCH (16:53)
--- NOTE | 2018-11-21 16:53 | P.PN ---
Subjective Progress Note Date: 11/21/18 This is a 83-year-old female who was admitted to the hospital with complaints of increasing shortness of breath and right arm pain and abnormal troponin values. Patient had a cardiac catheterization and was not found any significant obstructive disease. However her troponin went up to 30. Echo Cardigan showed severely impaired LV function. Patient also went into atrial fibrillation yesterday. Patient was started on IV amiodarone and converted back to sinus rhythm. She does have underlying left bundle branch block. Patient had an episode of shortness of breath last night. She does have some expiratory wheezing also on rhonchi. She is being treated for possible pneumonia and bronchitis. We'll continue current medical therapy. We will increase the dose of TRINY inhibitor and also add amlodipine for better control of her blood pressure. We'll also review her cardiac catheterization because of her high troponin values. Prognosis is guarded 11/21/2018: This patient is admitted to the hospital with increasing shortness of breath and abnormal troponin values. Cardiac catheterization showed diffuse disease without any critical stenosis. Patient was also noted to have persistent atrial fibrillation. Patient was initiated on IV amiodarone and switched to by mouth amiodarone. Patient is also on anti-cognition therapy. Patient has been stable since last visit. Denies any chest pain. Her creatinine has showed some rise in sodium is slightly low. IV diuretics are being discontinued. Increase activity. We'll follow lab work. If stable. Possible discharge in a.m. Objective - Vital Signs Vital signs: Vital Signs Temp 97.9 F 11/21/18 08:10 Pulse 76 11/21/18 12:10 Resp 17 11/21/18 12:10 BP 163/79 11/21/18 12:10 Pulse Ox 84 L 11/21/18 15:09 Intake & Output 11/20/18 11/21/18 11/21/18 18:59 06:59 18:59 Intake Total 960 240 Balance 960 240 Weight 57.3 kg Intake: IV 80 Sodium Chloride 0.9% 1, 80 000 ml @ 75 mls/hr IV . [id number] [facility] Rx#:[id number] Oral 880 240 Other: Voiding Method Toilet # Voids 2 # Bowel Movements 1 1 - Exam GENERAL EXAM: Patient is alert and oriented and doesn't appear to be in any acute distress HEENT: Normocephalic. Normal reaction of pupils, equal size, normal range of extraocular motion. No erythema or exudates in the throat. NECK: No masses, no nuchal rigidity. CHEST: No chest wall deformity. LUNGS: Expiratory rhonchi and wheezing HEART: S1 and S2 normal with no audible mumurs or gallops. Regular rhythm, femorals equal on both sides.. ABDOMEN: No hepatosplenomegaly, normal bowel sounds, no guarding or rigidity. SKIN: No rashes CENTRAL NERVOUS SYSTEM: No focal deficits. EXTREMITIES: No cyanosis, clubbing or edema. - Labs CBC & Chem 7: 11/21/18 06:03 11/21/18 06:03 Labs: Abnormal Lab Results - Last 24 Hours (Table) 11/21/18 Range/Units 06:03 Sodium 132 L (137-145) mmol/L Chloride 94 L (98-107) mmol/L Carbon Dioxide 34 H (22-30) mmol/L BUN 20 H (7-17) mg/dL Creatinine 1.26 H (0.52-1.04) mg/dL Microbiology - Last 24 Hours (Table) 11/18/18 08:58 Blood Culture - Preliminary Blood No Growth after 72 hours Assessment and Plan (1) Ischemic heart disease Current Visit: Yes Status: Acute Code(s): I25.9 - CHRONIC ISCHEMIC HEART DISEASE, UNSPECIFIED SNOMED Code(s): 420067134 (2) NSTEMI (non-ST elevated myocardial infarction) Current Visit: Yes Status: Acute Code(s): I21.4 - NON-ST ELEVATION (NSTEMI) MYOCARDIAL INFARCTION SNOMED Code(s): 05417289 (3) Chronic renal failure Current Visit: Yes Status: Acute Code(s): N18.9 - CHRONIC KIDNEY DISEASE, UNSPECIFIED SNOMED Code(s): 43613714 (4) Persistent atrial fibrillation Current Visit: Yes Status: Acute Code(s): I48.1 - PERSISTENT ATRIAL FIBRILLATION SNOMED Code(s): 237095438 Plan: Overall patient is feeling better. No further episodes of atrial fibrillation. No complaints of shortness of breath. Stop IV Lasix. Increase activity. Possible discharge in 24 hours
[2018-11-21] MEDS: ASPIRIN 81 MG PO SCH (20:56)
[2018-11-21] MEDS: ATORVASTATIN 10 MG TAB PO SCH (20:56)
[2018-11-22 07:25] LABS: Calcium 9.1 mg/dL (8.4-10.2); Potassium 4.3 mmol/L (3.5-5.1)
[2018-11-22] MEDS: cloNIDine HCL 0.1 MG TAB PO SCH (08:12)
[2018-11-22] MEDS: LISINOPRIL 10 MG TAB PO SCH ×2 (08:12→21:38)
[2018-11-22] MEDS: predniSONE 20 MG TAB PO SCH (08:12)
[2018-11-22] MEDS: amLODIPine 10 MG TAB PO SCH (08:12)
[2018-11-22] MEDS: METOPROLOL SUCCINATE (ER) 25 MG TAB.ER.24H PO SCH (08:12)
[2018-11-22] MEDS: APIXABAN 2.5 MG TABLET PO SCH ×2 (08:12→21:38)
[2018-11-22] MEDS: AMIODARONE 200 MG TAB PO SCH ×3 (08:12→21:38)
[2018-11-22] MEDS: DOXYCYCLINE 100 MG CAP PO SCH ×2 (08:13→21:38)
[2018-11-22] MEDS: SYMBICORT 160-4.5 MCG INHALER INHALATION SCH ×2 (08:36→19:16)
--- NOTE | 2018-11-22 10:58 | P.PN ---
Subjective Progress Note Date: 11/22/18 This is a 83-year-old female who was admitted to the hospital with complaints of increasing shortness of breath and right arm pain and abnormal troponin values. Patient had a cardiac catheterization and was not found any significant obstructive disease. However her troponin went up to 30. Echo Cardigan showed severely impaired LV function. Patient also went into atrial fibrillation yesterday. Patient was started on IV amiodarone and converted back to sinus rhythm. She does have underlying left bundle branch block. Patient had an episode of shortness of breath last night. She does have some expiratory wheezing also on rhonchi. She is being treated for possible pneumonia and bronchitis. We'll continue current medical therapy. We will increase the dose of TRINY inhibitor and also add amlodipine for better control of her blood pressure. We'll also review her cardiac catheterization because of her high troponin values. Prognosis is guarded 11/21/2018: This patient is admitted to the hospital with increasing shortness of breath and abnormal troponin values. Cardiac catheterization showed diffuse disease without any critical stenosis. Patient was also noted to have persistent atrial fibrillation. Patient was initiated on IV amiodarone and switched to by mouth amiodarone. Patient is also on anti-cognition therapy. Patient has been stable since last visit. Denies any chest pain. Her creatinine has showed some rise in sodium is slightly low. IV diuretics are being discontinued. Increase activity. We'll follow lab work. If stable. Possible discharge in a.m. 11/22: Repeat was 24 creatinine 1.37, blood pressure is running on the higher side. We will plan to discontinue lisinopril and increase Catapres to 0.1 mg twice daily. Patient is currently off Lasix. Would like to monitor patient overnight and plan for discharge tomorrow. Nursing relates the patient ambu lated yesterday and pulse ox dropped down to 84%. Patient states she is feeling okay with a little wheezing. She states she has this intermittently at home. Objective - Vital Signs Vital signs: Vital Signs Temp 98.1 F 11/22/18 08:00 Pulse 67 11/22/18 08:00 Resp 18 11/22/18 08:00 BP 166/81 11/22/18 08:00 Pulse Ox 92 L 11/22/18 08:00 Intake & Output 11/21/18 11/22/18 11/22/18 18:59 06:59 18:59 Intake Total 240 240 Output Total 700 Balance -460 240 Weight 57.7 kg Intake: Oral 240 240 Output: Urine 700 Other: # Voids 1 1 - Exam GENERAL EXAM: Patient is alert and oriented and doesn't appear to be in any acute distress HEENT: Normocephalic. Normal reaction of pupils, equal size, normal range of extraocular motion. No erythema or exudates in the throat. NECK: No masses, no nuchal rigidity. CHEST: No chest wall deformity. LUNGS: Expiratory rhonchi and wheezing HEART: S1 and S2 normal with no audible mumurs or gallops. Regular rhythm, femorals equal on both sides.. ABDOMEN: No hepatosplenomegaly, normal bowel sounds, no guarding or rigidity. SKIN: No rashes CENTRAL NERVOUS SYSTEM: No focal deficits. EXTREMITIES: No cyanosis, clubbing or edema. - Labs CBC & Chem 7: 11/21/18 06:03 11/22/18 06:10 Labs: Abnormal Lab Results - Last 24 Hours (Table) 11/22/18 Range/Units 06:10 Sodium 128 L (137-145) mmol/L Chloride 91 L (98-107) mmol/L BUN 24 H (7-17) mg/dL Creatinine 1.37 H (0.52-1.04) mg/dL Glucose 113 H (74-99) mg/dL Microbiology - Last 24 Hours (Table) 11/18/18 08:58 Blood Culture - Preliminary Blood No Growth after 72 hours Assessment and Plan Plan: (1) Ischemic heart disease Current Visit: Yes Status: Acute Code(s): I25.9 - CHRONIC ISCHEMIC HEART DISEASE, UNSPECIFIED SNOMED Code(s): 998655306 (2) NSTEMI (non-ST elevated myocardial infarction) Current Visit: Yes Status: Acute Code(s): I21.4 - NON-ST ELEVATION (NSTEMI) MYOCARDIAL INFARCTION SNOMED Code(s): 33482804 (3) Chronic renal failure Current Visit: Yes Status: Acute Code(s): N18.9 - CHRONIC KIDNEY DISEASE, UNSPECIFIED SNOMED Code(s): 48793088 (4) Persistent atrial fibrillation Current Visit: Yes Status: Acute Code(s): I48.1 - PERSISTENT ATRIAL FIBRILLATION SNOMED Code(s): 451051170 Plan: Overall patient is feeling better. No further episodes of atrial fibrillation. No complaints of shortness of breath. Patient is off Lasix. Catapres will be increased to 1 mg twice daily. Increase activity. Possible discharge in 24 hours There is practitioner note has been reviewed, agree with a document findings and plan of care. Patient was seen and examined.
--- NOTE | 2018-11-22 12:03 | P.PN ---
Subjective patient was admitted for a possible non-ST elevation myocardial infarction. Patient had cardiac catheterization which did not show any critical stenosis of any of the vasculature with diffuse the atherosclerotic vascular disease was appreciated patient will be maximized on medical therapy troponin although was elevated to about 30 patient has significant wall motion abnormalities on the echocardiogram. Ejection fraction of 30-35% patient was in heart failure exacerbation better now. Respiratory status improved 11/20/2018 Patient is comparing of shortness of breath does have significant wheeze on exam, patient went into atrial fibrillation last night because of which patient is on amiodarone drip which is being switched to oral amiodarone. Patient is rate controlled at this time. Patient was started on Eliquis. Patient has an ejection fraction of 30-35%.. Patient's serum sodium worsened and serum creatinine has is bit worse because of which I'll cut down now lisinopril doses as well as change the Lasix to oral patient's amlodipine dose will be increased for blood pressure control. 11/21/2018 Patient is presently on oral Lasix but her serum sodium has gone down to 132 to because of that reason I'll hold off on diuretic therapy. Upon ablation patient desaturated to 85% because of that I'll start her on low-dose of oral steroids if she is doing okay she will be discharged tomorrow. Patient looks much better feels much better. 11/22/2018 Patient the is hyponatremic with serum sodium of 128 I discontinued her Lasix ye sterday and expecting her serum creatinine and a serum sodium did improve by tomorrow. Patient is still wheezing. Wheeze significant a better patient is comparing of epigastric abdominal discomfort because the systemic steroids patient will be continued on 20 mg of oral prednisone Protonix will be added. Constitutional: Denied any fatigue denied any fever. Cardio vascular: denied any chest pain, palpitations Gastrointestinal denied any nausea vomiting Pulmonary: Shortness of breath improved Neurologic denied any new focal deficits All inpatient medications were reviewed and appropriate changes in these medications as dictated in the interval history and assessment and plan. Objective - Vital Signs Vital signs: Vital Signs Temp 98.1 F 11/22/18 08:00 Pulse 67 11/22/18 08:00 Resp 18 11/22/18 08:00 BP 166/81 11/22/18 08:00 Pulse Ox 92 L 11/22/18 08:00 Intake & Output 11/21/18 11/22/18 11/22/18 18:59 06:59 18:59 Intake Total 240 240 Output Total 700 Balance -460 240 Weight 57.7 kg Intake: Oral 240 240 Output: Urine 700 Other: # Voids 1 1 - Exam PHYSICAL EXAMINATION: GENERAL: The patient is alert and oriented x3, not in any acute distress. Well developed, well nourished. HEENT: Pupils are round and equally reacting to light. EOMI. No scleral icterus. No conjunctival pallor. Normocephalic, atraumatic. No pharyngeal erythema. No thyromegaly. CARDIOVASCULAR: S1 and S2 present. No murmurs, rubs, or gallops. No JVD PULMONARY: Expiratory wheezing improved ABDOMEN: Soft, nontender, nondistended, normoactive bowel sounds. No palpable organomegaly. MUSCULOSKELETAL: No joint swelling or deformity. EXTREMITIES: No cyanosis, clubbing, or pedal edema. NEUROLOGICAL: Gross neurological examination did not reveal any focal deficits. SKIN: No rashes. - Labs CBC & Chem 7: 11/21/18 06:03 11/22/18 06:10 Labs: Abnormal Lab Results - Last 24 Hours (Table) 11/22/18 Range/Units 06:10 Sodium 128 L (137-145) mmol/L Chloride 91 L (98-107) mmol/L BUN 24 H (7-17) mg/dL Creatinine 1.37 H (0.52-1.04) mg/dL Glucose 113 H (74-99) mg/dL Microbiology - Last 24 Hours (Table) 11/18/18 08:58 Blood Culture - Preliminary Blood No Growth after 96 hours Assessment and Plan Plan: -Shortness of breath, palpitations anginal equal: , possible non-ST elevation myocardial infarction, patient underwent cardiac catheterization catheterization reports as mentioned above no critical stenosis but diffuse atherosclerotic vascular disease congestive heart failure, patient has chronic systolic dysfunction with acute exacerbation patient says serum sodium has gone down serum creatinine went up to because of which a 6 is being held. Patient most probably had hypertensive emergency -Atrial fibrillation new onset started on Eliquis patient is on amiodarone -COPD with mild acute exacerbation patient was started on inhaled steroids inhal ational treatments patient was started on doxycycline for bronchitis patient is better regarding this perspective -Renal failure acute: Secondary to excessive diuretic therapy will , hold off on Lasix today -Hyponatremia: Secondary to Lasix which is being held -Uncontrolled accelerated hypertension patient possibly had hypertensive emergency on admission blood pressure improved now
[2018-11-22] MEDS: PANTOPRAZOLE 40 MG TABLET PO SCH (12:28)
[2018-11-22] MEDS: CARVEDILOL 12.5 MG TAB PO SCH (17:22)
[2018-11-22] MEDS: ATORVASTATIN 10 MG TAB PO SCH (21:38)
[2018-11-22] MEDS: ASPIRIN 81 MG PO SCH (21:38)
[2018-11-23] MEDS: CARVEDILOL 12.5 MG TAB PO SCH ×2 (06:38→17:03)
[2018-11-23] MEDS: PANTOPRAZOLE 40 MG TABLET PO SCH (06:38)
[2018-11-23 06:58] LABS: HCT 34.6 % (34.0-46.0); HGB 11.7 gm/dL (11.4-16.0); MCH 30.4 pg (25.0-35.0); MCHC 33.9 g/dL (31.0-37.0); MCV 89.7 fL (80.0-100.0); Mean Platelet Volume 6.9; Platelet Count 355 k/uL (150-450); RBC 3.86 m/uL (3.80-5.40); RDW 14.1 % (11.5-15.5); WBC 9.4 k/uL (3.8-10.6)
[2018-11-23 07:11] LABS: Calcium 9.2 mg/dL (8.4-10.2)
[2018-11-23] MEDS: amLODIPine 10 MG TAB PO SCH (08:16)
[2018-11-23] MEDS: AMIODARONE 200 MG TAB PO SCH ×3 (08:16→21:54)
[2018-11-23] MEDS: APIXABAN 2.5 MG TABLET PO SCH ×2 (08:16→21:54)
[2018-11-23] MEDS: LISINOPRIL 10 MG TAB PO SCH ×2 (08:17→21:54)
[2018-11-23] MEDS: predniSONE 20 MG TAB PO SCH (08:17)
[2018-11-23] MEDS: DOXYCYCLINE 100 MG CAP PO SCH ×2 (08:17→21:54)
[2018-11-23] MEDS: SYMBICORT 160-4.5 MCG INHALER INHALATION SCH ×2 (09:02→20:49)
[2018-11-23] MEDS: SODIUM CHLORIDE 0.9% 1,000 ML IV SCH (12:04)
--- NOTE | 2018-11-23 14:27 | P.PN ---
Subjective patient was admitted for a possible non-ST elevation myocardial infarction. Patient had cardiac catheterization which did not show any critical stenosis of any of the vasculature with diffuse the atherosclerotic vascular disease was appreciated patient will be maximized on medical therapy troponin although was elevated to about 30 patient has significant wall motion abnormalities on the echocardiogram. Ejection fraction of 30-35% patient was in heart failure exacerbation better now. Respiratory status improved 11/20/2018 Patient is comparing of shortness of breath does have significant wheeze on exam, patient went into atrial fibrillation last night because of which patient is on amiodarone drip which is being switched to oral amiodarone. Patient is rate controlled at this time. Patient was started on Eliquis. Patient has an ejection fraction of 30-35%.. Patient's serum sodium worsened and serum creatinine has is bit worse because of which I'll cut down now lisinopril doses as well as change the Lasix to oral patient's amlodipine dose will be increased for blood pressure control. 11/21/2018 Patient is presently on oral Lasix but her serum sodium has gone down to 132 to because of that reason I'll hold off on diuretic therapy. Upon ablation patient desaturated to 85% because of that I'll start her on low-dose of oral steroids if she is doing okay she will be discharged tomorrow. Patient looks much better feels much better. 11/22/2018 Patient the is hyponatremic with serum sodium of 128 I discontinued her Lasix ye sterday and expecting her serum creatinine and a serum sodium did improve by tomorrow. Patient is still wheezing. Wheeze significant a better patient is comparing of epigastric abdominal discomfort because the systemic steroids patient will be continued on 20 mg of oral prednisone Protonix will be added. 11/23/2018 Patient remains hyponatremic because of which are started on IV fluids and will recheck the serum sodium tomorrow we will let disc any IV fluids after a liter because of concerns of pulmonary edema which she had. She does have acute renal failure as well as significant improvements serum creatinine these to her expected to improve. Patient is also wheezing a bit but wheezing seemingly improved continue with 20 mg of prednisone had lengthy discussion with the family patient family is concerned about prolonged hospitalization. Spent significant amount of time at bedside discussing with the family regarding the plan. Patient hopefully will not require any oxygen by tomorrow. Patient probably can be discharged tomorrow if there is improvement in serum sodium serum creatinine. Patient may need couple more days of doxycycline. Constitutional: Denied any fatigue denied any fever. Cardio vascular: denied any chest pain, palpitations Gastrointestinal denied any nausea vomiting Pulmonary: Shortness of breath improved Neurologic denied any new focal deficits All inpatient medications were reviewed and appropriate changes in these medications as dictated in the interval history and assessment and plan. Objective - Vital Signs Vital signs: Vital Signs Temp 97.9 F 11/23/18 08:00 Pulse 65 11/23/18 11:39 Resp 18 11/23/18 11:39 BP 148/83 11/23/18 11:34 Pulse Ox 95 11/23/18 11:34 Intake & Output 11/22/18 11/23/18 11/23/18 18:59 06:59 18:59 Intake Total 720 600 Balance 720 600 Weight 58.6 kg Intake: Oral 720 600 Other: Voiding Method Toilet # Voids 1 1 1 - Exam PHYSICAL EXAMINATION: GENERAL: The patient is alert and oriented x3, not in any acute distress. Well developed, well nourished. HEENT: Pupils are round and equally reacting to light. EOMI. No scleral icterus. No conjunctival pallor. Normocephalic, atraumatic. No pharyngeal erythema. No thyromegaly. CARDIOVASCULAR: S1 and S2 present. No murmurs, rubs, or gallops. No JVD PULMONARY: Expiratory wheezing improved in good air entry today but still has very minimal wheeze ABDOMEN: Soft, nontender, nondistended, normoactive bowel sounds. No palpable organomegaly. MUSCULOSKELETAL: No joint swelling or deformity. EXTREMITIES: No cyanosis, clubbing, or pedal edema. NEUROLOGICAL: Gross neurological examination did not reveal any focal deficits. SKIN: No rashes. - Labs CBC & Chem 7: 11/23/18 06:10 11/23/18 06:10 Labs: Abnormal Lab Results - Last 24 Hours (Table) 11/23/18 Range/Units 06:10 Sodium 127 L (137-145) mmol/L Chloride 91 L (98-107) mmol/L BUN 33 H (7-17) mg/dL Creatinine 1.47 H (0.52-1.04) mg/dL Microbiology - Last 24 Hours (Table) 11/18/18 08:58 Blood Culture - Preliminary Blood No Growth after 120 hours Assessment and Plan Plan: -Shortness of breath, palpitations anginal equal: , possible non-ST elevation myocardial infarction, patient underwent cardiac catheterization catheterization reports as mentioned above no critical stenosis but diffuse atherosclerotic vascular disease congestive heart failure, patient has chronic systolic dysfunction with acute exacerbation patient says serum sodium has gone down serum creatinine went up to because of which a 6 is being held. Patient most probably had hypertensive emergency -Atrial fibrillation new onset started on Eliquis patient is on amiodarone -COPD with mild acute exacerbation patient was started on inhaled steroids inhalational treatments patient was started on doxycycline for bronchitis patient is better regarding this perspective -Renal failure acute: Secondary to excessive diuretic therapy will , hold off on Lasix, patient will be started on IV fluids -Hyponatremia: Secondary to Lasix which is being held started on IV fluids and repeat basic metabolic profile tomorrow -Uncontrolled accelerated hypertension patient possibly had hypertensive emergency on admission blood pressure improved now
--- NOTE | 2018-11-23 15:20 | P.PN ---
Subjective Progress Note Date: 11/23/18 This is a 83-year-old female with history of ischemic heart disease with previous stent placement done about 5 years ago. Apparently at that time patient of was having symptoms of shortness of breath that led for further evaluation and stent placement. Patient has done well over the last 5 years. It looks like that for the last several days patient has been having intermittent shortness of breath. Yesterday she was trying to climb status and started having shortness of breath that relieved after prolonged time with rest. Patient slept in the chair, Whole night. She did also take nitroglycerin sublingual at around 11 PM last night because he was having some discomfort. This morning at 5:00, her symptoms got worse and finally patient came to the emergency room. Patient was treated with Nitropaste and heparin with improvement of her symptoms. Patient is comfortable at this time. Her troponin values showed elevation, probably consistent with non-STEMI. Patient is advised to have a cardiac catheterization. Her EKG shows a left bundle-branch block pattern. At this point patient wants to wait until further tests come in, before deciding to have catheterization. We'll we will continue with beta blockers, nitrates, heparin and aspirin and probably Plavix. We'll wait for the results of the echocardiogram. Further recommendation will depend upon clinical course. Patient's daughter is also present during discussion with the patient. 11/19/2018 Patient was seen and examined this morning, underwent a cardiac catheterization yesterday which revealed mild diffuse coronary artery disease without any critical lesions.A she went into atrial fibrillation with rapid ventricular response through the night last night, continues to be in A. fib at this time. We have initiated IV amiodarone drip, and educated the patient regarding the need for anticoagulation. Patient also has a significant amount of wheezingtoday. She is quite eager to be discharged home however has been e ncouraged to stay in the hospital at least another 24 hours. 11/23/2018 Patient was seen and examined this morning, overall she is feeling well and quite eager to be discharged home. Her sodium level today is 127. She was recommended to stay in the hospital for at least another [address] Morgan plans on giving the patient some fluid, rechecking the sodium level in the morning. Objective - Vital Signs Vital signs: Vital Signs Temp 97.4 F L 11/23/18 15:18 Pulse 68 11/23/18 15:18 Resp 18 11/23/18 15:18 BP 154/76 11/23/18 15:18 Pulse Ox 91 L 11/23/18 15:18 Intake & Output 11/22/18 11/23/18 11/23/18 18:59 06:59 18:59 Intake Total 720 600 Balance 720 600 Weight 58.6 kg Intake: Oral 720 600 Other: Voiding Method Toilet # Voids 1 1 1 - Exam GENERAL EXAM: Patient is alert and oriented and doesn't appear to be in any acute distress HEENT: Normocephalic. Normal reaction of pupils, equal size, normal range of extraocular motion. No erythema or exudates in the throat. NECK: No masses, no nuchal rigidity. CHEST: No chest wall deformity. LUNGS: lungs reveal scattered wheezes with coarse rhonchi throughout. HEART: S1 and S2 irregularly irregular. ABDOMEN: No hepatosplenomegaly, normal bowel sounds, no guarding or rigidity. SKIN: No rashes CENTRAL NERVOUS SYSTEM: No focal deficits. EXTREMITIES: No cyanosis, clubbing or edema. Right groin soft, no evidence of any hematoma. - Labs CBC & Chem 7: 11/23/18 06:10 11/23/18 06:10 Labs: Abnormal Lab Results - Last 24 Hours (Table) 11/23/18 Range/Units 06:10 Sodium 127 L (137-145) mmol/L Chloride 91 L (98-107) mmol/L BUN 33 H (7-17) mg/dL Creatinine 1.47 H (0.52-1.04) mg/dL Microbiology - Last 24 Hours (Table) 11/18/18 08:58 Blood Culture - Preliminary Blood No Growth after 120 hours Assessment and Plan Plan: assessment and plan #1 shortness of breath with associated palpitations and chest discomfort, status post cardiac catheterization which did not reveal any significant obstructive coronary artery disease. #2 atrial fibrillation, paroxysmal, currently in normal sinus rhythm. #3 acute on chronic renal failure 4 hypertension #5 hyponatremia Plan From cardiology's perspective, patient may be able to be discharged home once cleared by primary. We will make her a follow-up appointment in the office post discharge. DNP note has been reviewed, I agree with a documented findings and plan of care. Patient was seen and examined.
--- NOTE | 2018-11-23 17:38 | P.CNPUL ---
History of Present Illness Consult date: 11/23/18 Reason for consult: dyspnea, COPD Chief complaint: shortness of breath History of present illness: this is an 84-year-old female admitted on 11/18/2018,known to have history of ischemic heart disease and previous stent placement, history of ischemic cardiomyopathy and LV dysfunction with ejection fraction of 35% at best, patient came in with mostly symptoms of shortness of breath for the last several days prior to admission. Patient has shortness of breath with any activity. She had intermittent episodes of chest pains improved with sublingual nitroglycerin. Upon arrival to the ER on admission patient was treated with nitro paste and heparin and there was improvement of her symptoms. Troponin levels were olya vated. Patient was felt to have a non-ST elevation myocardial infarction. She underwent cardiac catheterization. And she was found to have noncritical diffuse disease with patent stent to LAD. The recommendation was to continue medical therapy. Patient has been a smoker over the years, quit smoking over 20 years ago, and she was a [id number] smoker. She is known to have history of COPD, but was never treated with bronchodilators for underlying COPD. She doesn't describe shortness of breath, intermittent episodes of some cough and wheezing. Chest x-ray on this admission showed mild interstitial edema and her echocardiogram showed LV dysfunction with ejection fraction of 30-35% at best Review of Systems REVIEW OF SYSTEMS: CONSTITUTIONAL: no fever no chills no weight loss. HEENT: denies sore throat, no diplopia, no earache. No dizziness. CARDIOVASCULAR:as noted in HPI mostly dyspnea on exertion no palpitations, no syncope. PULMONARY: as noted in HPI, mostly cough wheezing shortness of breath with any activity. GASTROINTESTINAL: No diarrhea, no nausea, no vomiting, no abdominal pain. NEUROLOGICAL: No headaches, no weakness, no numbness. HEMATOLOGICAL: denies any history of clotting bleeding or bruising GENITOURINARY: denies hematuria and dysuria frequency urgency. MUSCULOSKELETAL/RHEUMATOLOGICAL:denies any arthralgia or myalgia ENDOCRINE: Denies any polyuria or polydipsia.denies any heat or cold intolerance. 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 History of Any Multi-Drug Resistant Organisms: None Reported Past Surgical History: Heart Catheterization With Stent Additional Past Surgical History / Comment(s): 04/09/14 PCI with stent, brain surgery to remove cyst, L clavicle surgery with hardware-since removed, skin cancer removed from upper lip, bilateral cataract removals/lens implants, colonoscopy. Past Anesthesia/Blood Transfusion Reactions: No Reported Reaction Additional Past Anesthesia/Blood Transfusion Reaction / Comment(s): NO REACTIONS. Date of Last Stent Placement:: 04/09/14 Smoking Status: Former smoker - Past Family History Father Family Medical History: Cancer Additional Family Medical History / Comment(s): FATHER OF THROAT CANCER AT AGE 76 YRS. HE WAS A SMOKER. HE ALSO WAS ALCOHOLIC. Mother Family Medical History: Dementia Additional Family Medical History / Comment(s): MOTHER AT AGE 92 YRS Medications and Allergies Home Medications Medication Instructions Recorded Confirmed Type Metoprolol Succinate [Toprol XL] 50 mg PO BID 04/13/14 07/14/14 History Aspirin 81 mg PO DAILY #90 chew 04/14/14 07/14/14 Rx Atorvastatin [Lipitor] 40 mg PO DAILY #90 tab 04/14/14 07/14/14 Rx Clopidogrel [Plavix] 75 mg PO DAILY #90 tab 04/14/14 07/14/14 Rx Aspirin EC [Ecotrin Low Dose] 81 mg PO HS 11/18/18 11/18/18 History Atorvastatin Calcium [Lipitor] 10 mg PO HS 11/18/18 11/18/18 History Lisinopril [Zestril] 5 mg PO DAILY 11/18/18 11/18/18 History Lisinopril [Zestril] 10 mg PO HS 11/18/18 11/18/18 History Metoprolol Succinate (ER) [Toprol 50 mg PO BID 11/18/18 11/18/18 History Xl] Nitroglycerin Sl Tabs [Nitrostat] 0.4 mg SUBLINGUAL Q5M PRN 11/18/18 11/18/18 History Spironolactone [Aldactone] 25 mg PO DAILY 11/18/18 11/18/18 History Allergies Allergy/AdvReac Type Severity Reaction Status Date / Time HCTZ Allergy Severe Anaphylaxis Uncoded 11/18/18 15:34 Physical Exam Vitals: Vital Signs Temp Pulse Resp BP BP Pulse Ox 11/23/18 16:00 68 18 11/23/18 15:18 97.4 F L 68 18 154/76 91 L 11/23/18 11:39 65 18 11/23/18 11:34 65 18 148/83 95 11/23/18 08:00 97.9 F 69 18 150/85 96 11/23/18 04:00 74 18 196/91 180/95 88 L 11/23/18 00:00 97.6 F 65 18 136/72 89 L 11/22/18 20:00 97.6 F 65 18 135/70 91 L 11/22/18 19:16 96 Intake and Output 11/23/18 11/23/18 11/23/18 06:59 14:59 22:59 Intake Total 600 Balance 600 Intake: Oral 600 Other: Voiding Method Toilet # Voids 1 1 Weight 58.6 kg Physical Exam: Revealed 84-year-old female in no distress, on oxygen at 2 L nasal cannula. Head: Atraumatic normocephalic. HEENT:[Neck is supple.] [No neck masses.] [No thyromegaly.] [No JVD.]PERRLA, EOMI, no icterus, throat is clear, moist mucous membranes. Chest: [diminished breath sounds at the bases slight wheezing on forced expiratory maneuver only.] Cardiac Exam: [irregular irregular rhythmNormal S1 and S2, no S3 gallop, no murmur.] Abdomen: [Soft, nontender, no megaly, no rebound, no guarding, normal bowel sounds.] Extremities: [No clubbing, no edema, no cyanosis.] Neurological Exam: [No focal neurologic deficit.]alert oriented 3. Psychiatric: Normal mood, affect and normal mental status examination. Skin: No rashes. Lymphatics: No lymphadenopathy. Results - Laboratory Findings CBC and BMP: 11/23/18 06:10 11/23/18 06:10 PT/INR, D-dimer PT 9.8 sec (9.0-12.0) 11/18/18 06:54 INR 0.9 (<1.2) 11/18/18 06:54 D-Dimer 0.75 mg/L FEU (<0.60) H 11/18/18 06:54 Abnormal lab findings: Abnormal Labs 11/18/18 11/18/18 11/18/18 06:54 06:54 06:54 APTT D-Dimer 0.75 H Sodium Chloride Carbon Dioxide BUN 20 H Creatinine 1.22 H Glucose 128 H Total Bilirubin 1.6 H Troponin I 0.063 H* HDL Cholesterol 11/18/18 11/18/18 11/19/18 08:49 18:18 03:20 APTT 34.6 H D-Dimer Sodium Chloride Carbon Dioxide BUN Creatinine Glucose Total Bilirubin Troponin I 0.847 H* 30.300 H* HDL Cholesterol 11/19/18 11/19/18 11/20/18 03:20 09:25 07:03 APTT 65.2 H D-Dimer Sodium 134 L Chloride 96 L Carbon Dioxide 31 H BUN 21 H 21 H Creatinine 1.19 H 1.35 H Glucose 109 H 111 H Total Bilirubin Troponin I HDL Cholesterol 66 H 11/21/18 11/22/18 11/23/18 06:03 06:10 06:10 APTT D-Dimer Sodium 132 L 128 L 127 L Chloride 94 L 91 L 91 L Carbon Dioxide 34 H BUN 20 H 24 H 33 H Creatinine 1.26 H 1.37 H 1.47 H Glucose 113 H Total Bilirubin Troponin I HDL Cholesterol - Diagnostic Findings Chest x-ray: image reviewed (suspect mild interstitial edema.) Assessment and Plan Assessment: impression: Shortness of breath secondary to underlying COPD, ischemic cardiomyopathy and LV dysfunction, chronic atrial fibrillation, and mild interstitial edema as noted on the chest x-ray. Remote smoking history, however the patient clearly has underlying COPD severity of which is to be determined on outpatient basis. Chronic systolic congestive heart failure Boyd atrial fibrillation Benign essential hypertension Ischemic cardiomyopathy and LV dysfunction. Recommendation: Discussed her condition with her and her family members at bedside, they were made aware that the patient does have underlying COPD, she does have congestive heart failure and she does have LV dysfunction. All of them are contributing to her shortness of breath. Patient may have to be tested for home oxygen and most likely she may require home oxygen. In the meantime continue bronchodilators as listed, consider discharge planning once cleared by cardiology. And I can see the patient on outpatient basis to assess the severity of her COPD. We'll continue to follow. Time with Patient: Greater than 30
[2018-11-23] MEDS: ASPIRIN 81 MG PO SCH (21:54)
[2018-11-23] MEDS: ATORVASTATIN 10 MG TAB PO SCH (21:54)
[2018-11-23] MEDS: guaiFENesin 600 MG TABLET.ER PO SCH (21:54)
[2018-11-24] MEDS: IPRATROPIUM-ALBUTEROL 3 ML NEB INHALATION PRN (04:28)
[2018-11-24] MEDS: PANTOPRAZOLE 40 MG TABLET PO SCH (06:42)
[2018-11-24] MEDS: SODIUM CHLORIDE 0.9% 1,000 ML IV SCH (06:42)
[2018-11-24] MEDS: CARVEDILOL 12.5 MG TAB PO SCH ×2 (06:42→17:27)
[2018-11-24] MEDS: SYMBICORT 160-4.5 MCG INHALER INHALATION SCH ×2 (07:45→20:55)
[2018-11-24] MEDS: APIXABAN 2.5 MG TABLET PO SCH ×2 (08:32→21:00)
[2018-11-24] MEDS: guaiFENesin 600 MG TABLET.ER PO SCH ×2 (08:32→21:01)
[2018-11-24] MEDS: DOXYCYCLINE 100 MG CAP PO SCH ×2 (08:32→21:00)
[2018-11-24] MEDS: predniSONE 20 MG TAB PO SCH (08:32)
[2018-11-24] MEDS: amLODIPine 10 MG TAB PO SCH (08:32)
[2018-11-24] MEDS: AMIODARONE 200 MG TAB PO SCH ×3 (08:33→21:00)
[2018-11-24] MEDS: LISINOPRIL 10 MG TAB PO SCH ×2 (08:33→21:00)
[2018-11-24 09:20] LABS: Calcium 8.9 mg/dL (8.4-10.2); Potassium 4.2 mmol/L (3.5-5.1)
[2018-11-24] MEDS ORDERED: hydrALAZINE HCL 20 MG/ML 1 ML VIAL IVP PRN (12:11)
--- NOTE | 2018-11-24 13:55 | P.NPCON ---
History of Present Illness - Reason for Consult acute renal failure, hyponatremia - History of Present Illness Reason for consultation: Acute kidney injury and hyponatremia History of present illness: Patient is a 83-year-old female seen in renal consultation for acute kidney injury and hyponatremia. On admission patient's sodium level was 140 and has been gradually decreasing over the last few days. It is down to 124 today. Patient's creatinine was 1.2-1 admission and peaked at 1.47 this admission. It is down to 1.18 today. Her creatinine in April 2014 was 0.8. She denies history of kidney disease. 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 No vomiting or diarrhea. Oral intake is fair. She denies drinking excessive amount of water. Patient initially presented to the hospital with chest pain. She underwent cardiac catheterization on November 18 which was quite benign. Leigha ent then went into A. fib with RVR and was started on amiodarone drip. She's now on oral amiodarone. Heart rate is controlled. She denies hematuria or dysuria. Urine output is good. Denies use of nonsteroidals. Denies family history of renal disease. Denies history of diabetes. No evidence of volume depletion. Blood pressures have been labile. Vital signs are stable. General: The patient appeared well nourished and normally developed. HEENT: Head exam is unremarkable. Neck is without jugular venous distension. LUNGS: Lungs are clear to auscultation and percussion. Breath sounds decreased. HEART: Rate and Rhythm are regular. First and second heart sounds normal. No murmurs, rubs or gallops. ABDOMEN: Abdominal exam reveals normal bowel sounds. Non-tender and non- distended. No evidence of peritonitis. EXTREMITITES: No clubbing, cyanosis, or edema. 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 History of Any Multi-Drug Resistant Organisms: None Reported Past Surgical History: Heart Catheterization With Stent Additional Past Surgical History / Comment(s): 04/09/14 PCI with stent, brain surgery to remove cyst, L clavicle surgery with hardware-since removed, skin cancer removed from upper lip, bilateral cataract removals/lens implants, colo noscopy. Past Anesthesia/Blood Transfusion Reactions: No Reported Reaction Additional Past Anesthesia/Blood Transfusion Reaction / Comment(s): NO REAC TIONS. Date of Last Stent Placement:: 04/09/14 Smoking Status: Former smoker - Past Family History Father Family Medical History: Cancer Additional Family Medical History / Comment(s): FATHER OF THROAT CANCER AT AGE 76 YRS. HE WAS A SMOKER. HE ALSO WAS ALCOHOLIC. Mother Family Medical History: Dementia Additional Family Medical History / Comment(s): MOTHER AT AGE 92 YRS Medications and Allergies Home Medications Medication Instructions Recorded Confirmed Type Metoprolol Succinate [Toprol XL] 50 mg PO BID 04/13/14 07/14/14 History Aspirin 81 mg PO DAILY #90 chew 04/14/14 07/14/14 Rx Atorvastatin [Lipitor] 40 mg PO DAILY #90 tab 04/14/14 07/14/14 Rx Clopidogrel [Plavix] 75 mg PO DAILY #90 tab 04/14/14 07/14/14 Rx Aspirin EC [Ecotrin Low Dose] 81 mg PO HS 11/18/18 11/18/18 History Atorvastatin Calcium [Lipitor] 10 mg PO HS 11/18/18 11/18/18 History Lisinopril [Zestril] 5 mg PO DAILY 11/18/18 11/18/18 History Lisinopril [Zestril] 10 mg PO HS 11/18/18 11/18/18 History Metoprolol Succinate (ER) [Toprol 50 mg PO BID 11/18/18 11/18/18 History Xl] Nitroglycerin Sl Tabs [Nitrostat] 0.4 mg SUBLINGUAL Q5M PRN 11/18/18 11/18/18 History Spironolactone [Aldactone] 25 mg PO DAILY 11/18/18 11/18/18 History Allergies Allergy/AdvReac Type Severity Reaction Status Date / Time HCTZ Allergy Severe Anaphylaxis Uncoded 11/18/18 15:34 Physical Exam Vitals: Vital Signs Temp Pulse Pulse Resp BP Pulse Ox 11/24/18 12:00 97.4 F L 63 16 135/69 92 L 11/24/18 08:00 97.4 F L 70 18 182/85 92 L 11/24/18 07:48 92 L 11/24/18 04:38 82 11/24/18 04:29 82 11/24/18 04:00 96.0 F L 67 18 159/77 93 L 11/24/18 00:00 96.8 F L 63 18 157/74 96 11/23/18 20:50 95 11/23/18 20:00 97.0 F L 66 18 140/69 96 11/23/18 16:00 68 18 11/23/18 15:18 97.4 F L 68 18 154/76 91 L Intake and Output 11/23/18 11/24/18 11/24/18 22:59 06:59 14:59 Intake Total 360 0 Output Total 300 300 Balance 60 -300 0 Intake: Oral 360 0 Output: Urine 300 300 Other: Voiding Method Toilet Toilet # Voids 1 1 1 # Bowel Movements 1 1 1 Weight 60.9 kg Results - Lab Results Most recent lab results Calcium 8.9 mg/dL (8.4-10.2) 11/24/18 08:50 Magnesium 1.9 mg/dL (1.6-2.3) 11/18/18 06:54 11/23/18 06:10 11/24/18 08:50 Assessment and Plan Plan: Assessment: 1. Acute kidney injury mostly prerenal secondary to contrast-induced nephropathy and diuresis. Creatinine peaked at 1.47 this admission and is down to 1.18 today. Creatinine was 0.83 in April 2014. 2. Chest pain. Status post cardiac catheterization on November 18. No significant lesions noted. 3. A. fib with RVR. Now on oral amiodarone and anticoagulation. Rate controlled. 4. Benign hypertension. Blood pressures labile. 5. Hyponatremia. Patient appears euvolemic. Possibly SIADH along with a component of poor solute intake. Plan: Hold off on diuretics and IV fluids. 1200 mL fluid restriction. Encourage oral intake. Add ensure with meals. Check serum osmolality, urine sodium and urine osmolality. Check TSH, uric acid and cortisol level. Add 10 mg hydralazine every 4 hours as needed for systolic blood pressure greater than 160. Repeat electrolytes in the morning. Thank you for the consultation. I will continue to follow the patient with you during her hospital stay.
--- NOTE | 2018-11-24 14:50 | P.PN ---
Subjective Progress Note Date: 11/24/18 This is a 83-year-old female with history of ischemic heart disease with previous stent placement done about 5 years ago. Apparently at that time patient of was having symptoms of shortness of breath that led for further evaluation and stent placement. Patient has done well over the last 5 years. It looks like that for the last several days patient has been having intermittent shortness of breath. Yesterday she was trying to climb status and started having shortness of breath that relieved after prolonged time with rest. Patient slept in the chair, Whole night. She did also take nitroglycerin sublingual at around 11 PM last night because he was having some discomfort. This morning at 5:00, her symptoms got worse and finally patient came to the emergency room. Patient was treated with Nitropaste and heparin with improvement of her symptoms. Patient is comfortable at this time. Her troponin values showed elevation, probably consistent with non-STEMI. Patient is advised to have a cardiac catheterization. Her EKG shows a left bundle-branch block pattern. At this point patient wants to wait until further tests come in, before deciding to have catheterization. We'll we will continue with beta blockers, nitrates, heparin and aspirin and probably Plavix. We'll wait for the results of the echocardiogram. Further recommendation will depend upon clinical course. Patient's daughter is also present during discussion with the patient. 11/19/2018 Patient was seen and examined this morning, underwent a cardiac catheterization yesterday which revealed mild diffuse coronary artery disease without any critical lesions.A she went into atrial fibrillation with rapid ventricular response through the night last night, continues to be in A. fib at this time. We have initiated IV amiodarone drip, and educated the patient regarding the need for anticoagulation. Patient also has a significant amount of wheezingtoday. She is quite eager to be discharged home however has been e ncouraged to stay in the hospital at least another 24 hours. 11/23/2018 Patient was seen and examined this morning, overall she is feeling well and quite eager to be discharged home. Her sodium level today is 127. She was recommended to stay in the hospital for at least another [address] Morgan plans on giving the patient some fluid, rechecking the sodium level in the morning. 11/24/2018 patient was seen and examined this morning, quite eager again to be discharged home however her sodium has dropped today to124. BUN is 32 creatinine 1.1. Nephrology consultation has been requested.I pressure 134/68 with a heart rate in the 60s, 92% on 2 L of oxygen. Objective - Vital Signs Vital signs: Vital Signs Temp 97.4 F L 11/24/18 12:00 Pulse 63 11/24/18 12:00 Resp 16 11/24/18 12:00 BP 135/69 11/24/18 12:00 Pulse Ox 92 L 11/24/18 12:00 Intake & Output 11/23/18 11/24/18 11/24/18 18:59 06:59 18:59 Intake Total 960 222 Output Total 600 Balance 960 -600 222 Weight 60.9 kg Intake: Oral 960 222 Output: Urine 600 Other: Voiding Method Toilet # Voids 1 1 1 # Bowel Movements 1 1 - Labs CBC & Chem 7: 11/23/18 06:10 11/24/18 08:50 Labs: Abnormal Lab Results - Last 24 Hours (Table) 11/24/18 Range/Units 08:50 Sodium 124 L (137-145) mmol/L Chloride 90 L (98-107) mmol/L BUN 32 H (7-17) mg/dL Creatinine 1.18 H (0.52-1.04) mg/dL Microbiology - Last 24 Hours (Table) 11/18/18 08:58 Blood Culture - Final Blood No Growth after 144 hours Assessment and Plan Plan: assessment and plan #1 shortness of breath with associated palpitations and chest discomfort, status post cardiac catheterization which did not reveal any significant obstructive coronary artery disease. #2 atrial fibrillation, paroxysmal, currently in normal sinus rhythm. #3 acute on chronic renal failure 4 hypertension #5 hyponatremia Plan From cardiology's perspective, nephrology consultation has been requested because of the hyponatremia. We will continue to follow. DNP note has been reviewed, I agree with a documented findings and plan of care. Patient was seen and examined.
--- NOTE | 2018-11-24 15:20 | P.PN ---
Subjective Progress Note Date: 11/24/18 Principal diagnosis: Dyspnea secondary to underlying COPD, ischemic myopathy and LV dysfunction, chronic atrial fib relation, mild interstitial edema. This is an 84-year-old female admitted on 11/18/2018,known to have history of ischemic heart disease and previous stent placement, history of ischemic cardiomyopathy and LV dysfunction with ejection fraction of 35% at best, patient came in with mostly symptoms of shortness of breath for the last several days prior to admission. Patient has shortness of breath with any activity. She had intermittent episodes of chest pains improved with sublingual nitroglycerin. Upon arrival to the ER on admission patient was treated with nitro paste and heparin and there was improvement of her symptoms. Troponin levels were elevated. Patient was felt to have a non-ST elevation myocardial infarction. She underwent cardiac catheterization. And she was found to have noncritical diffuse disease with patent stent to LAD. The recommendation was to continue medical therapy. Patient has been a smoker over the years, quit smoking over 20 years ago, and she was a [id number] smoker. She is known to have history of COPD, but was never treated with bronchodilators for underlying COPD. She doesn't describe shortness of breath, intermittent episodes of some cough and wheezing. Chest x-ray on this admission showed mild interstitial edema and her echocardiogram showed LV dysfunction with ejection fraction of 30-35% at best The patient is seen today 11/24/2018 in follow-up on the selective care unit. He is currently resting quite comfortably in bed. She denies any worsening shortness of breath, cough or congestion. Still dyspneic on exertion. Maintaining O2 saturations in the low 90s on 2 L/m per nasal cannula. She's been afebrile. Hemodynamically stable. Blood cultures reveal no growth. Sodium continues to decline currently at 124. Creatinine 1.18. TSH 5.76. She remains on DuoNeb inhalations, Symbicort, oral prednisone. Objective - Vital Signs Vital signs: Vital Signs Temp 97.4 F L 11/24/18 12:00 Pulse 63 11/24/18 12:00 Resp 16 11/24/18 12:00 BP 135/69 11/24/18 12:00 Pulse Ox 92 L 11/24/18 12:00 Intake & Output 11/23/18 11/24/18 11/24/18 18:59 06:59 18:59 Intake Total 960 222 Output Total 600 Balance 960 -600 222 Weight 60.9 kg Intake: Oral 960 222 Output: Urine 600 Other: Voiding Method Toilet # Voids 1 1 1 # Bowel Movements 1 1 - Exam GENERAL EXAM: Alert, comfortable in no apparent distress. On 2 L nasal cannula. Afebrile. HEAD: Normocephalic. EYES: Normal reaction of pupils, equal size. NOSE: Clear with pink turbinates. THROAT: No erythema or exudates. NECK: No masses, no JVD. CHEST: No chest wall deformity. LUNGS: Equal air entry with faint end expiratory wheeze, diminished CVS: S1 and S2 normal with no audible murmur, regular rhythm. ABDOMEN: No hepatosplenomegaly, normal bowel sounds, no guarding or rigidity. SPINE: No scoliosis or deformity SKIN: No rashes CENTRAL NERVOUS SYSTEM: No focal deficits, tone is normal in all 4 extremities. EXTREMITIES: There is no peripheral edema. No clubbing, no cyanosis. Peripheral pulses are intact. - Labs CBC & Chem 7: 11/23/18 06:10 11/24/18 08:50 Labs: Abnormal Lab Results - Last 24 Hours (Table) 11/24/18 11/24/18 Range/Units 08:50 08:50 Sodium 124 L (137-145) mmol/L Chloride 90 L (98-107) mmol/L BUN 32 H (7-17) mg/dL Creatinine 1.18 H (0.52-1.04) mg/dL TSH 5.760 H (0.465-4.680) mIU/L Microbiology - Last 24 Hours (Table) 11/18/18 08:58 Blood Culture - Final Blood No Growth after 144 hours Assessment and Plan Assessment: Impression: Shortness of breath secondary to underlying COPD, ischemic cardiomyopathy and LV dysfunction, chronic atrial fibrillation, and mild interstitial edema as noted on the chest x-ray. Remote smoking history, however the patient clearly has underlying COPD severity of which is to be determined on outpatient basis. Chronic systolic congestive heart failure Boyd atrial fibrillation Benign essential hypertension Ischemic cardiomyopathy and LV dysfunction. Hyponatremia on the current sodium 124. Recommendation: The patient was seen and evaluated by Dr. Whitt. We'll continue with current treatment plan. She is stable from the pulmonary standpoint. Nephrology has been consulted regarding her hyponatremia. We'll continue to follow make further recommendations based on her clinical status. I, the cosigning physician, performed a history & physical examination of the patient. Lungs sounds with faint end expiratory wheeze, diminished Maintaining good O2 saturations in the 90s on 2 L/m per nasal cannula. I discussed the assessment and plan of care with my nurse practitioner, Nury Tuttle. I attest to the above note as dictated by her.
[2018-11-24 15:34] LABS: T4, Free (Free Thyroxine) 1.5 ng/dL (0.78-2.19)
--- NOTE | 2018-11-24 18:34 | P.PN ---
Subjective patient was admitted for a possible non-ST elevation myocardial infarction. Patient had cardiac catheterization which did not show any critical stenosis of any of the vasculature with diffuse the atherosclerotic vascular disease was appreciated patient will be maximized on medical therapy troponin although was elevated to about 30 patient has significant wall motion abnormalities on the echocardiogram. Ejection fraction of 30-35% patient was in heart failure exacerbation better now. Respiratory status improved 11/20/2018 Patient is comparing of shortness of breath does have significant wheeze on exam, patient went into atrial fibrillation last night because of which patient is on amiodarone drip which is being switched to oral amiodarone. Patient is rate controlled at this time. Patient was started on Eliquis. Patient has an ejection fraction of 30-35%.. Patient's serum sodium worsened and serum creatinine has is bit worse because of which I'll cut down now lisinopril doses as well as change the Lasix to oral patient's amlodipine dose will be increased for blood pressure control. 11/21/2018 Patient is presently on oral Lasix but her serum sodium has gone down to 132 to because of that reason I'll hold off on diuretic therapy. Upon ablation patient desaturated to 85% because of that I'll start her on low-dose of oral steroids if she is doing okay she will be discharged tomorrow. Patient looks much better feels much better. 11/22/2018 Patient the is hyponatremic with serum sodium of 128 I discontinued her Lasix y esterday and expecting her serum creatinine and a serum sodium did improve by tomorrow. Patient is still wheezing. Wheeze significant a better patient is comparing of epigastric abdominal discomfort because the systemic steroids patient will be continued on 20 mg of oral prednisone Protonix will be added. 11/23/2018 Patient remains hyponatremic because of which are started on IV fluids and will recheck the serum sodium tomorrow we will let disc any IV fluids after a liter because of concerns of pulmonary edema which she had. She does have acute renal failure as well as significant improvements serum creatinine these to her expected to improve. Patient is also wheezing a bit but wheezing seemingly improved continue with 20 mg of prednisone had lengthy discussion with the family patient family is concerned about prolonged hospitalization. Spent significant amount of time at bedside discussing with the family regarding the plan. Patient hopefully will not require any oxygen by tomorrow. Patient probably can be discharged tomorrow if there is improvement in serum sodium serum creatinine. Patient may need couple more days of doxycycline. subjective 11/24/2018 pt today sodium worsened from 127 to 124, pt with no headacle or weankess or abnormal movement or seizure like activity . nephrology team were consulted , mostly due to hypovolemia from excessive diuresis, pt diurectic were held as well as iv fluid and pt was placed on fluid restriction . hydralazine prn for hypertension .pt is with no chest pain , no dyspnea , no change in urine or bowel habit , no nausea or vomiting , no abd pain , she is tolerating diet well . no fever. pt is been followed as well by cardiology and pulmonary Objective - Vital Signs Vital signs: Vital Signs Temp 97.5 F L 11/24/18 15:36 Pulse 63 11/24/18 15:38 Resp 18 11/24/18 15:38 BP 135/63 11/24/18 15:36 Pulse Ox 96 11/24/18 15:36 Intake & Output 11/23/18 11/24/18 11/24/18 18:59 06:59 18:59 Intake Total 960 222 Output Total 600 Balance 960 -600 222 Weight 60.9 kg Intake: Oral 960 222 Output: Urine 600 Other: Voiding Method Toilet # Voids 1 1 1 # Bowel Movements 1 1 - Exam GENERAL: The patient is alert and oriented x3, not in any acute distress. Well developed, well nourished. HEENT: Pupils are round and equally reacting to light. EOMI. No scleral icterus. No conjunctival pallor. Normocephalic, atraumatic. No pharyngeal erythema. No thyromegaly. CARDIOVASCULAR: S1 and S2 present. No murmurs, rubs, or gallops. No JVD PULMONARY: Expiratory wheezing improved in good air entry today but still has very minimal wheeze ABDOMEN: Soft, nontender, nondistended, normoactive bowel sounds. No palpable organomegaly. MUSCULOSKELETAL: No joint swelling or deformity. EXTREMITIES: No cyanosis, clubbing, or pedal edema. NEUROLOGICAL: Gross neurological examination did not reveal any focal deficits. SKIN: No rashes. - Labs CBC & Chem 7: 11/23/18 06:10 11/24/18 08:50 Labs: Abnormal Lab Results - Last 24 Hours (Table) 11/24/18 11/24/18 Range/Units 08:50 08:50 Sodium 124 L (137-145) mmol/L Chloride 90 L (98-107) mmol/L BUN 32 H (7-17) mg/dL Creatinine 1.18 H (0.52-1.04) mg/dL Osmolality 264 L (280-301) mosm/kg TSH 5.760 H (0.465-4.680) mIU/L Microbiology - Last 24 Hours (Table) 11/18/18 08:58 Blood Culture - Final Blood No Growth after 144 hours Assessment and Plan Assessment: -hypovolemic hyponatremia, hold diurtic and iv fluid, continue with fluid restriction as per nephrology recommendation -Shortness of breath, palpitations anginal equal: , possible non-ST elevation myocardial infarction, patient underwent cardiac catheterization catheterization reports as mentioned above no critical stenosis but diffuse atherosclerotic vascular disease congestive heart failure, patient has chronic systolic dysfunction with acute exacerbation patient says serum sodium has gone down serum creatinine went up to because of which a 6 is being held. Patient most probably had hypertensive emergency -Atrial fibrillation new onset started on Eliquis patient is on amiodarone -COPD with mild acute exacerbation patient was started on inhaled steroids inhalational treatments patient was started on doxycycline for bronchitis patient is better regarding this perspective -Renal failure acute: Secondary to excessive diuretic therapy will , hold off on Lasix, patient will be started on IV fluids -Uncontrolled accelerated hypertension patient possibly had hypertensive emergency on admission blood pressure improved now
[2018-11-24] MEDS: ATORVASTATIN 10 MG TAB PO SCH (21:00)
[2018-11-24] MEDS: ASPIRIN 81 MG PO SCH (21:00)
[2018-11-25] MEDS: CARVEDILOL 12.5 MG TAB PO SCH ×2 (06:35→15:38)
[2018-11-25] MEDS: PANTOPRAZOLE 40 MG TABLET PO SCH (06:35)
[2018-11-25 07:38] LABS: Calcium 8.8 mg/dL (8.4-10.2); Magnesium 1.8 mg/dL (1.6-2.3); Potassium 4.2 mmol/L (3.5-5.1); Uric Acid 4.8 mg/dL (3.7-7.4)
[2018-11-25] MEDS: LISINOPRIL 10 MG TAB PO SCH (08:29)
[2018-11-25] MEDS: guaiFENesin 600 MG TABLET.ER PO SCH ×2 (08:29→21:40)
[2018-11-25] MEDS: DOXYCYCLINE 100 MG CAP PO SCH ×2 (08:29→21:40)
[2018-11-25] MEDS: predniSONE 20 MG TAB PO SCH (08:30)
[2018-11-25] MEDS: APIXABAN 2.5 MG TABLET PO SCH ×2 (08:30→21:40)
[2018-11-25] MEDS: AMIODARONE 200 MG TAB PO SCH ×3 (08:30→21:40)
[2018-11-25] MEDS: amLODIPine 10 MG TAB PO SCH (08:30)
[2018-11-25] MEDS: SYMBICORT 160-4.5 MCG INHALER INHALATION SCH ×2 (08:39→20:00)
--- NOTE | 2018-11-25 10:56 | P.PN ---
Subjective Patient is seen in follow-up for acute kidney injury and hyponatremia. Sodium level is 123 today. Renal function is improving. Creatinine 1.1 today. Oral intake remains poor. No vomiting or diarrhea. No edema. Denies chest pain or shortness of breath. Vital signs are stable. General: The patient appeared well nourished and normally developed. HEENT: Head exam is unremarkable. Neck is without jugular venous distension. LUNGS: Lungs are clear to auscultation and percussion. Breath sounds decreased. HEART: Rate and Rhythm are regular. First and second heart sounds normal. No murmurs, rubs or gallops. ABDOMEN: Abdominal exam reveals normal bowel sounds. Non-tender and non- distended. No evidence of peritonitis. EXTREMITITES: No clubbing, cyanosis, or edema. Objective - Vital Signs Vital signs: Vital Signs Temp 97.6 F 11/25/18 04:00 Pulse 64 11/25/18 04:00 Resp 18 11/25/18 04:00 BP 154/87 11/25/18 04:00 Pulse Ox 96 11/25/18 04:00 Intake & Output 11/24/18 11/25/18 11/25/18 18:59 06:59 18:59 Intake Total 222 480 Output Total 400 Balance -178 480 Weight 61.1 kg Intake: Oral 222 480 Output: Urine 400 Other: # Voids 1 1 # Bowel Movements 1 - Labs CBC & Chem 7: 11/23/18 06:10 11/25/18 07:12 Labs: Abnormal Lab Results - Last 24 Hours (Table) 11/24/18 11/25/18 Range/Units 08:50 07:12 Sodium 123 L (137-145) mmol/L Chloride 90 L (98-107) mmol/L BUN 37 H (7-17) mg/dL Creatinine 1.12 H (0.52-1.04) mg/dL Osmolality 264 L (280-301) mosm/kg TSH 5.760 H (0.465-4.680) mIU/L Microbiology - Last 24 Hours (Table) 11/18/18 08:58 Blood Culture - Final Blood No Growth after 144 hours Assessment and Plan Plan: Assessment: 1. Acute kidney injury mostly prerenal secondary to contrast-induced nephropathy and diuresis. Creatinine peaked at 1.47 this admission and is down to 1.12 today. Creatinine was 0.83 in April 2014. 2. Chest pain. Status post cardiac catheterization on November 18. No significant lesions noted. 3. A. fib with RVR. Now on oral amiodarone and anticoagulation. Rate controlled. 4. Benign hypertension. Blood pressures labile. 5. Hyponatremia. Patient appears euvolemic. 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 Urine sodium is low at 16 and urine osmolality high as 685. TSH was mildly elevated. Cortisol level normal. Uric acid level normal. Plan: Maintain 1200 mL fluid restriction. Encouraged oral intake, particularly solute. Add sodium chloride tablets. Add Lasix 20 mg orally twice daily to help dilute the urine. Repeat sodium level this evening. If no improvement, I will give her a dose of Sam[place].
[2018-11-25] MEDS: SODIUM CHLORIDE TAB 1 GM TAB PO SCH ×2 (11:14→21:40)
[2018-11-25 11:22] VITALS: BMI 24.6
--- NOTE | 2018-11-25 12:52 | P.PN ---
Subjective patient was admitted for a possible non-ST elevation myocardial infarction. Patient had cardiac catheterization which did not show any critical stenosis of any of the vasculature with diffuse the atherosclerotic vascular disease was appreciated patient will be maximized on medical therapy troponin although was elevated to about 30 patient has significant wall motion abnormalities on the echocardiogram. Ejection fraction of 30-35% patient was in heart failure exacerbation better now. Respiratory status improved 11/20/2018 Patient is comparing of shortness of breath does have significant wheeze on exam, patient went into atrial fibrillation last night because of which patient is on amiodarone drip which is being switched to oral amiodarone. Patient is rate controlled at this time. Patient was started on Eliquis. Patient has an ejection fraction of 30-35%.. Patient's serum sodium worsened and serum creatinine has is bit worse because of which I'll cut down now lisinopril doses as well as change the Lasix to oral patient's amlodipine dose will be increased for blood pressure control. 11/21/2018 Patient is presently on oral Lasix but her serum sodium has gone down to 132 to because of that reason I'll hold off on diuretic therapy. Upon ablation patient desaturated to 85% because of that I'll start her on low-dose of oral steroids if she is doing okay she will be discharged tomorrow. Patient looks much better feels much better. 11/22/2018 Patient the is hyponatremic with serum sodium of 128 I discontinued her Lasix y esterday and expecting her serum creatinine and a serum sodium did improve by tomorrow. Patient is still wheezing. Wheeze significant a better patient is comparing of epigastric abdominal discomfort because the systemic steroids patient will be continued on 20 mg of oral prednisone Protonix will be added. 11/23/2018 Patient remains hyponatremic because of which are started on IV fluids and will recheck the serum sodium tomorrow we will let disc any IV fluids after a liter because of concerns of pulmonary edema which she had. She does have acute renal failure as well as significant improvements serum creatinine these to her expected to improve. Patient is also wheezing a bit but wheezing seemingly improved continue with 20 mg of prednisone had lengthy discussion with the family patient family is concerned about prolonged hospitalization. Spent significant amount of time at bedside discussing with the family regarding the plan. Patient hopefully will not require any oxygen by tomorrow. Patient probably can be discharged tomorrow if there is improvement in serum sodium serum creatinine. Patient may need couple more days of doxycycline. subjective 11/24/2018 pt today sodium worsened from 127 to 124, pt with no headacle or weankess or abnormal movement or seizure like activity . nephrology team were consulted , mostly due to hypovolemia from excessive diuresis, pt diurectic were held as well as iv fluid and pt was placed on fluid restriction . hydralazine prn for hypertension .pt is with no chest pain , no dyspnea , no change in urine or bowel habit , no nausea or vomiting , no abd pain , she is tolerating diet well . no fever. pt is been followed as well by cardiology and pulmonary 11/25/2018 Patient is awake but tired today. She still have some secretions and dyspnea. On examination she has coarse crepitation associated with cough and yellowish phlegm. Vitals are stable and patient is afebrile, saturating 94% in severity to her. Sodium is slightly worse today at 123, nephrology input is appreciated and recommended a sodium tablets. Also incentive spirometry as provided for the patient. Keep monitoring for sodium. Objective - Vital Signs Vital signs: Vital Signs Temp 97.5 F L 11/25/18 11:57 Pulse 59 L 11/25/18 12:00 Resp 18 11/25/18 12:00 BP 125/63 11/25/18 11:57 Pulse Ox 94 L 11/25/18 11:57 Intake & Output 11/24/18 11/25/18 11/25/18 18:59 06:59 18:59 Intake Total 222 480 Output Total 400 Balance -178 480 Weight 61.1 kg 61.1 kg Intake: Oral 222 480 Output: Urine 400 Other: Voiding Method Toilet # Voids 1 1 # Bowel Movements 1 - Exam GENERAL: The patient is alert and oriented x3, not in any acute distress. Well developed, well nourished. HEENT: Pupils are round and equally reacting to light. EOMI. No scleral icterus. No conjunctival pallor. Normocephalic, atraumatic. No pharyngeal erythema. No thyromegaly. CARDIOVASCULAR: S1 and S2 present. No murmurs, rubs, or gallops. No JVD PULMONARY: Expiratory wheezing improved in good air entry today but still has very minimal wheeze ABDOMEN: Soft, nontender, nondistended, normoactive bowel sounds. No palpable organomegaly. MUSCULOSKELETAL: No joint swelling or deformity. EXTREMITIES: No cyanosis, clubbing, or pedal edema. NEUROLOGICAL: Gross neurological examination did not reveal any focal deficits. SKIN: No rashes. - Labs CBC & Chem 7: 11/23/18 06:10 11/25/18 07:12 Labs: Abnormal Lab Results - Last 24 Hours (Table) 11/24/18 11/25/18 Range/Units 08:50 07:12 Sodium 123 L (137-145) mmol/L Chloride 90 L (98-107) mmol/L BUN 37 H (7-17) mg/dL Creatinine 1.12 H (0.52-1.04) mg/dL Osmolality 264 L (280-301) mosm/kg TSH 5.760 H (0.465-4.680) mIU/L Microbiology - Last 24 Hours (Table) 11/18/18 08:58 Blood Culture - Final Blood No Growth after 144 hours Assessment and Plan Assessment: -hypovolemic hyponatremia, hold diurtic and iv fluid, continue with fluid restriction as per nephrology recommendation -Shortness of breath, palpitations anginal equal: , possible non-ST elevation myocardial infarction, patient underwent cardiac catheterization catheterization reports as mentioned above no critical stenosis but diffuse atherosclerotic vascular disease congestive heart failure, patient has chronic systolic dysfunction with acute exacerbation patient says serum sodium has gone down serum creatinine went up to because of which a 6 is being held. Patient most probably had hypertensive em ergency -Atrial fibrillation new onset started on Eliquis patient is on amiodarone -COPD with mild acute exacerbation patient was started on inhaled steroids inhalational treatments patient was started on doxycycline for bronchitis patient is better regarding this perspective -Renal failure acute: Secondary to excessive diuretic therapy will , hold off on Lasix, patient will be started on IV fluids -Uncontrolled accelerated hypertension patient possibly had hypertensive emergency on admission blood pressure improved now
--- NOTE | 2018-11-25 15:50 | P.PN ---
Subjective Progress Note Date: 11/25/18 This is a 83-year-old female with history of ischemic heart disease with previous stent placement done about 5 years ago. Apparently at that time patient of was having symptoms of shortness of breath that led for further evaluation and stent placement. Patient has done well over the last 5 years. It looks like that for the last several days patient has been having intermittent shortness of breath. Yesterday she was trying to climb status and started having shortness of breath that relieved after prolonged time with rest. Patient slept in the chair, Whole night. She did also take nitroglycerin sublingual at around 11 PM last night because he was having some discomfort. This morning at 5:00, her symptoms got worse and finally patient came to the emergency room. Patient was treated with Nitropaste and heparin with improvement of her symptoms. Patient is comfortable at this time. Her troponin values showed elevation, probably consistent with non-STEMI. Patient is advised to have a cardiac catheterization. Her EKG shows a left bundle-branch block pattern. At this point patient wants to wait until further tests come in, before deciding to have catheterization. We'll we will continue with beta blockers, nitrates, heparin and aspirin and probably Plavix. We'll wait for the results of the echocardiogram. Further recommendation will depend upon clinical course. Patient's daughter is also present during discussion with the patient. 11/19/2018 Patient was seen and examined this morning, underwent a cardiac catheterization yesterday which revealed mild diffuse coronary artery disease without any critical lesions.A she went into atrial fibrillation with rapid ventricular response through the night last night, continues to be in A. fib at this time. We have initiated IV amiodarone drip, and educated the patient regarding the need for anticoagulation. Patient also has a significant amount of wheezingtoday. She is quite eager to be discharged home however has been e ncouraged to stay in the hospital at least another 24 hours. 11/23/2018 Patient was seen and examined this morning, overall she is feeling well and quite eager to be discharged home. Her sodium level today is 127. She was recommended to stay in the hospital for at least another [address] Morgan plans on giving the patient some fluid, rechecking the sodium level in the morning. 11/24/2018 patient was seen and examined this morning, quite eager again to be discharged home however her sodium has dropped today to124. BUN is 32 creatinine 1.1. Nephrology consultation has been requested.I pressure 134/68 with a heart rate in the 60s, 92% on 2 L of oxygen. 11/25/2018 Patient was seen and examined this morning, sitting up in the chair, overall she feels well, her sodium did drop again today to 123. A nephrology consultation was requested yesterday, the recommendation is to restrict the fluids, he also started low dose of Lasix. From our recommendation we will also discontinue the lisinopril today. Objective - Vital Signs Vital signs: Vital Signs Temp 97.5 F L 11/25/18 11:57 Pulse 59 L 11/25/18 12:00 Resp 18 11/25/18 12:00 BP 125/63 11/25/18 11:57 Pulse Ox 94 L 11/25/18 11:57 Intake & Output 11/24/18 11/25/18 11/25/18 18:59 06:59 18:59 Intake Total 222 960 Output Total 400 Balance -178 960 Weight 61.1 kg 61.1 kg Intake: Oral 222 960 Output: Urine 400 Other: Voiding Method Toilet # Voids 1 1 # Bowel Movements 1 - Exam GENERAL EXAM: Patient is alert and oriented and doesn't appear to be in any acute distress HEENT: Normocephalic. Normal reaction of pupils, equal size, normal range of extraocular motion. No erythema or exudates in the throat. NECK: No masses, no nuchal rigidity. CHEST: No chest wall deformity. LUNGS: lungs reveal scattered wheezes with coarse rhonchi throughout. HEART: S1 and S2 irregularly irregular. ABDOMEN: No hepatosplenomegaly, normal bowel sounds, no guarding or rigidity. SKIN: No rashes CENTRAL NERVOUS SYSTEM: No focal deficits. EXTREMITIES: No cyanosis, clubbing or edema. Right groin soft, no evidence of any hematoma. - Labs CBC & Chem 7: 11/23/18 06:10 11/25/18 07:12 Labs: Abnormal Lab Results - Last 24 Hours (Table) 11/24/18 11/25/18 Range/Units 08:50 07:12 Sodium 123 L (137-145) mmol/L Chloride 90 L (98-107) mmol/L BUN 37 H (7-17) mg/dL Creatinine 1.12 H (0.52-1.04) mg/dL Osmolality 264 L (280-301) mosm/kg Assessment and Plan Plan: assessment and plan #1 shortness of breath with associated palpitations and chest discomfort, status post cardiac catheterization which did not reveal any significant obstructive coronary artery disease. #2 atrial fibrillation, paroxysmal, currently in normal sinus rhythm. #3 acute on chronic renal failure 4 hypertension #5 hyponatremia Plan From cardiology's perspective, we will discontinue the lisinopril, nephrology has started a low-dose of diuretics and has put a restriction on fluids. We will check daily lytes BUN and creatinine.
[2018-11-25] MEDS ORDERED: FUROSEMIDE 20 MG TAB PO SCH (16:00)
[2018-11-25] MEDS: IPRATROPIUM-ALBUTEROL 3 ML NEB INHALATION PRN (16:47)
[2018-11-25] MEDS ORDERED: SODIUM CHLORIDE 0.65% NASAL SPRAY 44 ML BTL NASAL PRN (19:47)
[2018-11-25] MEDS ORDERED: TOLVAPTAN 15 MG 1/2 TABLET PO ONE (21:00)
[2018-11-25] MEDS ORDERED: TOLVAPTAN 30 MG TABLET PO ONE (21:00)
[2018-11-25] MEDS: hydrALAZINE HCL 25 MG TAB PO SCH (21:40)
[2018-11-25] MEDS: ATORVASTATIN 10 MG TAB PO SCH (21:40)
[2018-11-25] MEDS: ASPIRIN 81 MG PO SCH (21:40)
[2018-11-26] MEDS: CARVEDILOL 12.5 MG TAB PO SCH ×2 (06:28→17:08)
[2018-11-26] MEDS: PANTOPRAZOLE 40 MG TABLET PO SCH (06:28)
[2018-11-26 07:32] LABS: Calcium 9.2 mg/dL (8.4-10.2); Magnesium 1.9 mg/dL (1.6-2.3); Potassium 4.6 mmol/L (3.5-5.1)
[2018-11-26] MEDS: SYMBICORT 160-4.5 MCG INHALER INHALATION SCH ×2 (08:17→20:14)
[2018-11-26] MEDS: SODIUM CHLORIDE TAB 1 GM TAB PO SCH ×2 (09:44→21:04)
[2018-11-26] MEDS: guaiFENesin 600 MG TABLET.ER PO SCH ×2 (09:44→20:24)
[2018-11-26] MEDS: AMIODARONE 200 MG TAB PO SCH ×3 (09:44→20:24)
[2018-11-26] MEDS: APIXABAN 2.5 MG TABLET PO SCH ×2 (09:44→20:25)
[2018-11-26] MEDS: hydrALAZINE HCL 25 MG TAB PO SCH ×2 (09:44→20:24)
--- NOTE | 2018-11-26 10:17 | P.PN ---
Subjective patient was admitted for a possible non-ST elevation myocardial infarction. Patient had cardiac catheterization which did not show any critical stenosis of any of the vasculature with diffuse the atherosclerotic vascular disease was appreciated patient will be maximized on medical therapy troponin although was elevated to about 30 patient has significant wall motion abnormalities on the echocardiogram. Ejection fraction of 30-35% patient was in heart failure exacerbation better now. Respiratory status improved 11/20/2018 Patient is comparing of shortness of breath does have significant wheeze on exam, patient went into atrial fibrillation last night because of which patient is on amiodarone drip which is being switched to oral amiodarone. Patient is rate controlled at this time. Patient was started on Eliquis. Patient has an ejection fraction of 30-35%.. Patient's serum sodium worsened and serum creatinine has is bit worse because of which I'll cut down now lisinopril doses as well as change the Lasix to oral patient's amlodipine dose will be increased for blood pressure control. 11/21/2018 Patient is presently on oral Lasix but her serum sodium has gone down to 132 to because of that reason I'll hold off on diuretic therapy. Upon ablation patient desaturated to 85% because of that I'll start her on low-dose of oral steroids if she is doing okay she will be discharged tomorrow. Patient looks much better feels much better. 11/22/2018 Patient the is hyponatremic with serum sodium of 128 I discontinued her Lasix y esterday and expecting her serum creatinine and a serum sodium did improve by tomorrow. Patient is still wheezing. Wheeze significant a better patient is comparing of epigastric abdominal discomfort because the systemic steroids patient will be continued on 20 mg of oral prednisone Protonix will be added. 11/23/2018 Patient remains hyponatremic because of which are started on IV fluids and will recheck the serum sodium tomorrow we will let disc any IV fluids after a liter because of concerns of pulmonary edema which she had. She does have acute renal failure as well as significant improvements serum creatinine these to her expected to improve. Patient is also wheezing a bit but wheezing seemingly improved continue with 20 mg of prednisone had lengthy discussion with the family patient family is concerned about prolonged hospitalization. Spent significant amount of time at bedside discussing with the family regarding the plan. Patient hopefully will not require any oxygen by tomorrow. Patient probably can be discharged tomorrow if there is improvement in serum sodium serum creatinine. Patient may need couple more days of doxycycline. subjective 11/24/2018 pt today sodium worsened from 127 to 124, pt with no headacle or weankess or abnormal movement or seizure like activity . nephrology team were consulted , mostly due to hypovolemia from excessive diuresis, pt diurectic were held as well as iv fluid and pt was placed on fluid restriction . hydralazine prn for hypertension .pt is with no chest pain , no dyspnea , no change in urine or bowel habit , no nausea or vomiting , no abd pain , she is tolerating diet well . no fever. pt is been followed as well by cardiology and pulmonary 11/25/2018 Patient is awake but tired today. She still have some secretions and dyspnea. On examination she has coarse crepitation associated with cough and yellowish phlegm. Vitals are stable and patient is afebrile, saturating 94% in severity to her. Sodium is slightly worse today at 123, nephrology input is appreciated and recommended a sodium tablets. Also incentive spirometry as provided for the patient. Keep monitoring for sodium. 11/26/2018 Patient sodium went down to 120 yesterday, she got 1 dose of samsa , as per nephrology team following the patient closely. Patient today she feels a little bit better and her sodium improved to 126. Creatinine 1.3. No chest pain or dyspnea. Her cough is better and she is using incentive spirometry. No much of leg edema. Vitals are stable. Patient remains on fluid restriction 1201st day. Objective - Vital Signs Vital signs: Vital Signs Temp 97.4 F L 11/26/18 07:40 Pulse 59 L 11/26/18 07:40 Resp 16 11/26/18 07:40 BP 117/74 11/26/18 07:40 Pulse Ox 95 11/26/18 08:18 Intake & Output 11/25/18 11/26/18 11/26/18 18:59 06:59 18:59 Intake Total 1196 120 Balance 1196 120 Weight 61.1 kg 61.1 kg Intake: Oral 1196 120 Other: Voiding Method Toilet Toilet # Voids 1 1 - Exam GENERAL: The patient is alert and oriented x3, not in any acute distress. Well developed, well nourished. HEENT: Pupils are round and equally reacting to light. EOMI. No scleral icterus. No conjunctival pallor. Normocephalic, atraumatic. No pharyngeal erythema. No thyromegaly. CARDIOVASCULAR: S1 and S2 present. No murmurs, rubs, or gallops. No JVD PULMONARY: Expiratory wheezing improved in good air entry today but still has very minimal wheeze ABDOMEN: Soft, nontender, nondistended, normoactive bowel sounds. No palpable organomegaly. MUSCULOSKELETAL: No joint swelling or deformity. EXTREMITIES: No cyanosis, clubbing, or pedal edema. NEUROLOGICAL: Gross neurological examination did not reveal any focal deficits. SKIN: No rashes. - Labs CBC & Chem 7: 11/23/18 06:10 11/26/18 06:44 Labs: Abnormal Lab Results - Last 24 Hours (Table) 11/25/18 11/26/18 11/26/18 Range/Units 16:57 00:30 06:44 Sodium 120 L 121 L 126 L (137-145) mmol/L Chloride 94 L (98-107) mmol/L BUN 44 H (7-17) mg/dL Creatinine 1.36 H (0.52-1.04) mg/dL Assessment and Plan Assessment: -hypovolemic hyponatremia, hold diurtic and iv fluid, continue with fluid restriction as per nephrology recommendation -Shortness of breath, palpitations anginal equal: , possible non-ST elevation myocardial infarction, patient underwent cardiac catheterization catheterization reports as mentioned above no critical stenosis but diffuse atherosclerotic vascular disease congestive heart failure, patient has chronic systolic dysfunction with acute exacerbation patient says serum sodium has gone down serum creatinine went up to because of which a 6 is being held. Patient most probably had hypertensive emergency -Atrial fibrillation new onset started on Eliquis patient is on amiodarone -COPD with mild acute exacerbation patient was started on inhaled steroids inhalational treatments patient was started on doxycycline for bronchitis patient is better regarding this perspective -Renal failure acute: Secondary to excessive diuretic therapy will , hold off on Lasix, patient will be started on IV fluids -Uncontrolled accelerated hypertension patient possibly had hypertensive emergency on admission blood pressure improved now
--- NOTE | 2018-11-26 10:18 | P.PN ---
Subjective Patient is seen in follow-up for acute kidney injury and hyponatremia. Sodium level is 126 today. Renal function is slightly worse. Creatinine 1.36 today. Oral intake is gradually improving. No vomiting or diarrhea. No edema. Denies chest pain or shortness of breath. Does admit to a cough. She's been drinking ensure. Vital signs are stable. General: The patient appeared well nourished and normally developed. HEENT: Head exam is unremarkable. Neck is without jugular venous distension. LUNGS: Lungs are clear to auscultation and percussion. Breath sounds decreased. HEART: Rate and Rhythm are regular. First and second heart sounds normal. No murmurs, rubs or gallops. ABDOMEN: Abdominal exam reveals normal bowel sounds. Non-tender and non- distended. No evidence of peritonitis. EXTREMITITES: No clubbing, cyanosis, or edema. Objective - Vital Signs Vital signs: Vital Signs Temp 97.4 F L 11/26/18 07:40 Pulse 59 L 11/26/18 07:40 Resp 16 11/26/18 07:40 BP 117/74 11/26/18 07:40 Pulse Ox 95 11/26/18 08:18 Intake & Output 11/25/18 11/26/18 11/26/18 18:59 06:59 18:59 Intake Total 1196 120 Balance 1196 120 Weight 61.1 kg 61.1 kg Intake: Oral 1196 120 Other: Voiding Method Toilet Toilet # Voids 1 1 - Labs CBC & Chem 7: 11/23/18 06:10 11/26/18 06:44 Labs: Abnormal Lab Results - Last 24 Hours (Table) 11/25/18 11/26/18 11/26/18 Range/Units 16:57 00:30 06:44 Sodium 120 L 121 L 126 L (137-145) mmol/L Chloride 94 L (98-107) mmol/L BUN 44 H (7-17) mg/dL Creatinine 1.36 H (0.52-1.04) mg/dL Assessment and Plan Plan: Assessment: 1. Acute kidney injury mostly prerenal secondary to contrast-induced nephropathy and diuresis. Creatinine peaked at 1.47 this admission and was down to 1.12 yesterday. It is slightly worse at 1.36 today which is due to diuresis. Creatinine was 0.83 in April 2014. 2. Chest pain. Status post cardiac catheterization on November 18. No significant lesions noted. 3. A. fib with RVR. Now on oral amiodarone and anticoagulation. Rate controlled. 4. Benign hypertension. Blood pressures controlled. 5. Hyponatremia. Patient appears euvolemic. 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 Urine sodium is low at 16 and urine osmolality high as 685. TSH was mildly elevated. Cortisol level normal. Uric acid level normal. Patient denies history of malignancy. Plan: Maintain 1200 mL fluid restriction. Encouraged oral intake, particularly solute. Maintain sodium chloride tablets. Hold off on Lasix. Repeat sodium level this evening. If no improvement, I will give her another dose of Samsca. Check PTH related peptide.
[2018-11-26] MEDS: amLODIPine 10 MG TAB PO SCH (13:12)
[2018-11-26] MEDS: DOXYCYCLINE 100 MG CAP PO SCH ×2 (13:12→20:25)
[2018-11-26] MEDS: predniSONE 20 MG TAB PO SCH (13:12)
[2018-11-26] MEDS: BENZONATATE 100 MG CAP PO PRN (13:12)
--- NOTE | 2018-11-26 15:03 | P.PN ---
Subjective Progress Note Date: 11/26/18 This is a 83-year-old female with history of ischemic heart disease with previous stent placement done about 5 years ago. Apparently at that time patient of was having symptoms of shortness of breath that led for further evaluation and stent placement. Patient has done well over the last 5 years. It looks like that for the last several days patient has been having intermittent shortness of breath. Yesterday she was trying to climb status and started having shortness of breath that relieved after prolonged time with rest. Patient slept in the chair, Whole night. She did also take nitroglycerin sublingual at around 11 PM last night because he was having some discomfort. This morning at 5:00, her symptoms got worse and finally patient came to the emergency room. Patient was treated with Nitropaste and heparin with improvement of her symptoms. Patient is comfortable at this time. Her troponin values showed elevation, probably consistent with non-STEMI. Patient is advised to have a cardiac catheterization. Her EKG shows a left bundle-branch block pattern. At this point patient wants to wait until further tests come in, before deciding to have catheterization. We'll we will continue with beta blockers, nitrates, heparin and aspirin and probably Plavix. We'll wait for the results of the echocardiogram. Further recommendation will depend upon clinical course. Patient's daughter is also present during discussion with the patient. 11/19/2018 Patient was seen and examined this morning, underwent a cardiac catheterization yesterday which revealed mild diffuse coronary artery disease without any critical lesions.A she went into atrial fibrillation with rapid ventricular response through the night last night, continues to be in A. fib at this time. We have initiated IV amiodarone drip, and educated the patient regarding the need for anticoagulation. Patient also has a significant amount of wheezingtoday. She is quite eager to be discharged home however has been e ncouraged to stay in the hospital at least another 24 hours. 11/23/2018 Patient was seen and examined this morning, overall she is feeling well and quite eager to be discharged home. Her sodium level today is 127. She was recommended to stay in the hospital for at least another [address] Morgan plans on giving the patient some fluid, rechecking the sodium level in the morning. 11/24/2018 patient was seen and examined this morning, quite eager again to be discharged home however her sodium has dropped today to124. BUN is 32 creatinine 1.1. Nephrology consultation has been requested.I pressure 134/68 with a heart rate in the 60s, 92% on 2 L of oxygen. 11/25/2018 Patient was seen and examined this morning, sitting up in the chair, overall she feels well, her sodium did drop again today to 123. A nephrology consultation was requested yesterday, the recommendation is to restrict the fluids, he also started low dose of Lasix. From our recommendation we will also discontinue the lisinopril today. 11/26/2018 Patient was seen and examined this morning, continues to feel tired, complaining of a purple tongue this morning. She still did not sleep last night, was not given her sleeping pill either. Sodium 126, potassium 4.6, BUN 44 creatinine 1.3, magnesium 1.9. Patient was on doxycycline which we'll discontinue, we will give her some nystatin swish and swallow for her mouth. We will also make her Ambien a scheduled dose in the evening instead of when necessary. Objective - Vital Signs Vital signs: Vital Signs Temp 97.4 F L 11/26/18 07:40 Pulse 60 11/26/18 11:40 Resp 16 11/26/18 11:40 BP 121/59 11/26/18 11:40 Pulse Ox 97 11/26/18 11:40 Intake & Output 11/25/18 11/26/18 11/26/18 18:59 06:59 18:59 Intake Total 1196 120 240 Balance 1196 120 240 Weight 61.1 kg 61.1 kg Intake: Oral 1196 120 240 Other: Voiding Method Toilet Toilet Toilet # Voids 1 1 1 - Exam GENERAL EXAM: Patient is alert and oriented and doesn't appear to be in any acute distress HEENT: Normocephalic. Normal reaction of pupils, equal size, normal range of extraocular motion. No erythema or exudates in the throat. Purple tongue NECK: No masses, no nuchal rigidity. CHEST: No chest wall deformity. LUNGS: lungs reveal scattered wheezes with coarse rhonchi throughout. HEART: S1 and S2 irregularly irregular. ABDOMEN: No hepatosplenomegaly, normal bowel sounds, no guarding or rigidity. SKIN: No rashes CENTRAL NERVOUS SYSTEM: No focal deficits. EXTREMITIES: No cyanosis, clubbing or edema. Right groin soft, no evidence of any hematoma. - Labs CBC & Chem 7: 11/23/18 06:10 11/26/18 06:44 Labs: Abnormal Lab Results - Last 24 Hours (Table) 11/25/18 11/26/18 11/26/18 Range/Units 16:57 00:30 06:44 Sodium 120 L 121 L 126 L (137-145) mmol/L Chloride 94 L (98-107) mmol/L BUN 44 H (7-17) mg/dL Creatinine 1.36 H (0.52-1.04) mg/dL Assessment and Plan Plan: assessment and plan #1 shortness of breath with associated palpitations and chest discomfort, status post cardiac catheterization which did not reveal any significant obstructive coronary artery disease. #2 atrial fibrillation, paroxysmal, currently in normal sinus rhythm. #3 acute on chronic renal failure 4 hypertension #5 hyponatremia Plan From cardiology's perspective, we'll recommend to discontinue the doxycycline, we will order some nystatin swish and swallow, give the patient Ambien for sleep tonight and continue the rest of her medications. DNP note has been reviewed, I agree with a documented findings and plan of care. Patient was seen and examined.
[2018-11-26] MEDS: ATORVASTATIN 10 MG TAB PO SCH (20:24)
[2018-11-26] MEDS: ASPIRIN 81 MG PO SCH (20:24)
[2018-11-26] MEDS: ZOLPIDEM 5 MG TAB PO PRN (20:25)
[2018-11-26] MEDS ORDERED: TOLVAPTAN 15 MG 1/2 TABLET PO ONE (21:00)
[2018-11-27 06:44] LABS: Calcium 8.9 mg/dL (8.4-10.2); Potassium 5.1 mmol/L (3.5-5.1)
[2018-11-27] MEDS: SYMBICORT 160-4.5 MCG INHALER INHALATION SCH ×2 (09:48→20:57)
--- NOTE | 2018-11-27 09:54 | P.PN ---
Subjective Patient is seen in follow-up for acute kidney injury and hyponatremia. Sodium level is 128 today. Renal function is worse - cr 1.96 today. Oral intake is gradually improving. No vomiting or diarrhea. No edema. Denies chest pain or shortness of breath. Vital signs are stable. General: The patient appeared well nourished and normally developed. HEENT: Head exam is unremarkable. Neck is without jugular venous distension. LUNGS: Lungs are clear to auscultation and percussion. Breath sounds decreased. HEART: Rate and Rhythm are regular. First and second heart sounds normal. No murmurs, rubs or gallops. ABDOMEN: Abdominal exam reveals normal bowel sounds. Non-tender and non- distended. No evidence of peritonitis. EXTREMITITES: No clubbing, cyanosis, or edema. Objective - Vital Signs Vital signs: Vital Signs Temp 97.9 F 11/27/18 03:45 Pulse 77 11/27/18 03:45 Resp 18 11/27/18 03:45 BP 115/60 11/27/18 03:45 Pulse Ox 97 11/27/18 03:45 Intake & Output 11/26/18 11/27/18 11/27/18 18:59 06:59 18:59 Intake Total 840 Output Total 300 Balance 840 -300 Weight 61 kg Intake: Oral 840 Output: Urine 300 Other: Voiding Method Toilet Toilet # Voids 1 - Labs CBC & Chem 7: 11/23/18 06:10 11/27/18 05:54 Labs: Abnormal Lab Results - Last 24 Hours (Table) 11/26/18 11/27/18 Range/Units 16:30 05:54 Sodium 126 L 128 L (137-145) mmol/L Chloride 94 L (98-107) mmol/L BUN 50 H (7-17) mg/dL Creatinine 1.96 H (0.52-1.04) mg/dL Assessment and Plan Plan: Assessment: 1. Acute kidney injury mostly prerenal secondary to diuresis. Patient has rece ived multiple doses of Samsca this admission. She received a dose last night. Creatinine 1.96 today. Rule out urinary retention. Creatinine was 0.83 in April 2014. 2. Chest pain. Status post cardiac catheterization on November 18. No significant lesions noted. 3. A. fib with RVR. Now on oral amiodarone and anticoagulation. Rate controlled. 4. Benign hypertension. Blood pressures controlled. 5. Hyponatremia. Patient appears euvolemic. 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 Urine sodium is low at 16 and urine osmolality high as 685. TSH was mildly elevated. Cortisol level normal. Uric acid level normal. Patient denies history of malignancy. Plan: Maintain 1200 mL fluid restriction. Encouraged oral intake, particularly solute. Maintain sodium chloride tablets. Hold off on Lasix/samsca today. F/u PTH related peptide. Check postvoid residual to make sure no underlying urinary retention. Hold antihypertensives if systolic blood pressure less than 120.
[2018-11-27] MEDS: APIXABAN 2.5 MG TABLET PO SCH ×2 (10:51→20:54)
[2018-11-27] MEDS: hydrALAZINE HCL 25 MG TAB PO SCH ×2 (10:51→20:54)
[2018-11-27] MEDS: guaiFENesin 600 MG TABLET.ER PO SCH ×2 (10:51→20:54)
[2018-11-27] MEDS: PANTOPRAZOLE 40 MG TABLET PO SCH (10:51)
[2018-11-27] MEDS: AMIODARONE 200 MG TAB PO SCH ×3 (10:51→20:54)
[2018-11-27] MEDS: predniSONE 20 MG TAB PO SCH (10:52)
[2018-11-27] MEDS: SODIUM CHLORIDE TAB 1 GM TAB PO SCH ×2 (10:52→20:54)
[2018-11-27] MEDS: CARVEDILOL 12.5 MG TAB PO SCH ×2 (10:53→16:58)
[2018-11-27] MEDS: amLODIPine 10 MG TAB PO SCH (12:23)
[2018-11-27 16:00] LABS: Appearance,Urine Clear (Clear); Bilirubin,Urine Negative (Negative); Blood,Urine Negative (Negative); Color,Urine Light Yellow; Glucose,Urine (UA) Negative (Negative); Ketones,Urine Negative (Negative); Leukocyte Esterase,Urine Negative (Negative); Nitrite,Urine Negative (Negative); Protein,Urine Negative (Negative); Specific Gravity,Urine 1.004 (1.001-1.035); Urobilinogen,Urine <2.0 mg/dL (<2.0)
--- NOTE | 2018-11-27 16:24 | P.PN ---
Subjective Progress Note Date: 11/27/18 This is a 83-year-old female who was admitted to the hospital with complaints of increasing shortness of breath and right arm pain and abnormal troponin values. Patient had a cardiac catheterization and was not found any significant obstructive disease. However her troponin went up to 30. Echo Cardigan showed severely impaired LV function. Patient also went into atrial fibrillation yesterday. Patient was started on IV amiodarone and converted back to sinus rhythm. She does have underlying left bundle branch block. Patient had an episode of shortness of breath last night. She does have some expiratory wheezing also on rhonchi. She is being treated for possible pneumonia and bronchitis. We'll continue current medical therapy. We will increase the dose of TRINY inhibitor and also add amlodipine for better control of her blood pressure. We'll also review her cardiac catheterization because of her high troponin values. Prognosis is guarded 11/21/2018: This patient is admitted to the hospital with increasing shortness of breath and abnormal troponin values. Cardiac catheterization showed diffuse disease without any critical stenosis. Patient was also noted to have persistent atrial fibrillation. Patient was initiated on IV amiodarone and switched to by mouth amiodarone. Patient is also on anti-cognition therapy. Patient has been stable since last visit. Denies any chest pain. Her creatinine has showed some rise in sodium is slightly low. IV diuretics are being discontinued. Increase activity. We'll follow lab work. If stable. Possible discharge in a.m. 11/27/2018: This patient is admitted to the hospital with increasing shortness of breath and abnormal troponin values. Cardiac cath did not reveal any significant disease. Patient is also found to have exacerbation of COPD. She had intermittent atrial fibrillation. Subsequently she developed hyponatremia. Seen by nephrology. She was treated with Lasix and fluid restriction. Her creatinine is going up. Sodium may also came up to 128. Patient developed some issues with the memory. Patient is feeling a little better today. Doesn't appear to be in acute distress. Lungs show scattered rhonchi. Heart is regular. Patient is maintaining sinus rhythm. We'll continue current medical therapy. Follow the electrolytes closely. Increase activity. Objective - Vital Signs Vital signs: Vital Signs Temp 97.4 F L 11/27/18 08:40 Pulse 62 11/27/18 14:00 Resp 17 11/27/18 14:00 BP 108/53 11/27/18 14:00 Pulse Ox 94 L 11/27/18 14:00 Intake & Output 11/26/18 11/27/18 11/27/18 18:59 06:59 18:59 Intake Total 840 236 Output Total 300 500 Balance 840 -300 -264 Weight 61 kg Intake: Oral 840 236 Output: Urine 300 500 Other: Voiding Method Toilet Toilet # Voids 1 - Exam GENERAL EXAM: Patient is alert and oriented and doesn't appear to be in any acute distress HEENT: Normocephalic. Normal reaction of pupils, equal size, normal range of extraocular motion. No erythema or exudates in the throat. NECK: No masses, no nuchal rigidity. CHEST: No chest wall deformity. LUNGS: Expiratory rhonchi and wheezing HEART: S1 and S2 normal with no audible mumurs or gallops. Regular rhythm, femorals equal on both sides.. ABDOMEN: No hepatosplenomegaly, normal bowel sounds, no guarding or rigidity. SKIN: No rashes CENTRAL NERVOUS SYSTEM: No focal deficits. EXTREMITIES: No cyanosis, clubbing or edema. - Labs CBC & Chem 7: 11/23/18 06:10 11/27/18 05:54 Labs: Abnormal Lab Results - Last 24 Hours (Table) 11/26/18 11/27/18 Range/Units 16:30 05:54 Sodium 126 L 128 L (137-145) mmol/L Chloride 94 L (98-107) mmol/L BUN 50 H (7-17) mg/dL Creatinine 1.96 H (0.52-1.04) mg/dL Assessment and Plan (1) Ischemic heart disease Current Visit: Yes Status: Acute Code(s): I25.9 - CHRONIC ISCHEMIC HEART DISEASE, UNSPECIFIED SNOMED Code(s): 794474805 (2) NSTEMI (non-ST elevated myocardial infarction) Current Visit: Yes Status: Acute Code(s): I21.4 - NON-ST ELEVATION (NSTEMI) MYOCARDIAL INFARCTION SNOMED Code(s): 23990642 (3) Chronic renal failure Current Visit: Yes Status: Acute Code(s): N18.9 - CHRONIC KIDNEY DISEASE, UNSPECIFIED SNOMED Code(s): 15539086 (4) Persistent atrial fibrillation Current Visit: Yes Status: Acute Code(s): I48.1 - PERSISTENT ATRIAL FIBRILLATION SNOMED Code(s): 442169749 Plan: Patient's hyponatremia shows improvement. Patient is blood pressure well controlled and in fact tends to be on the low side. We'll make add back the dose of hydralazine. She is off lisinopril. Continue following her electrolytes. Increase activity
[2018-11-27] MEDS: amLODIPine 5 MG TAB PO SCH (20:53)
[2018-11-27] MEDS: ASPIRIN 81 MG PO SCH (20:54)
[2018-11-27] MEDS: ATORVASTATIN 10 MG TAB PO SCH (20:54)
[2018-11-27] MEDS: ZOLPIDEM 5 MG TAB PO PRN (23:03)
[2018-11-27] MEDS: BENZONATATE 100 MG CAP PO PRN (23:03)
[2018-11-28 07:11] LABS: Magnesium 2.1 mg/dL (1.6-2.3); Potassium 5.1 mmol/L (3.5-5.1)
[2018-11-28] MEDS: SYMBICORT 160-4.5 MCG INHALER INHALATION SCH ×2 (08:05→19:50)
--- NOTE | 2018-11-28 08:20 | P.PN ---
Subjective patient was admitted for a possible non-ST elevation myocardial infarction. Patient had cardiac catheterization which did not show any critical stenosis of any of the vasculature with diffuse the atherosclerotic vascular disease was appreciated patient will be maximized on medical therapy troponin although was elevated to about 30 patient has significant wall motion abnormalities on the echocardiogram. Ejection fraction of 30-35% patient was in heart failure exacerbation better now. Respiratory status improved 11/20/2018 Patient is comparing of shortness of breath does have significant wheeze on exam, patient went into atrial fibrillation last night because of which patient is on amiodarone drip which is being switched to oral amiodarone. Patient is rate controlled at this time. Patient was started on Eliquis. Patient has an ejection fraction of 30-35%.. Patient's serum sodium worsened and serum creatinine has is bit worse because of which I'll cut down now lisinopril doses as well as change the Lasix to oral patient's amlodipine dose will be increased for blood pressure control. 11/21/2018 Patient is presently on oral Lasix but her serum sodium has gone down to 132 to because of that reason I'll hold off on diuretic therapy. Upon ablation patient desaturated to 85% because of that I'll start her on low-dose of oral steroids if she is doing okay she will be discharged tomorrow. Patient looks much better feels much better. 11/22/2018 Patient the is hyponatremic with serum sodium of 128 I discontinued her Lasix y esterday and expecting her serum creatinine and a serum sodium did improve by tomorrow. Patient is still wheezing. Wheeze significant a better patient is comparing of epigastric abdominal discomfort because the systemic steroids patient will be continued on 20 mg of oral prednisone Protonix will be added. 11/23/2018 Patient remains hyponatremic because of which are started on IV fluids and will recheck the serum sodium tomorrow we will let disc any IV fluids after a liter because of concerns of pulmonary edema which she had. She does have acute renal failure as well as significant improvements serum creatinine these to her expected to improve. Patient is also wheezing a bit but wheezing seemingly improved continue with 20 mg of prednisone had lengthy discussion with the family patient family is concerned about prolonged hospitalization. Spent significant amount of time at bedside discussing with the family regarding the plan. Patient hopefully will not require any oxygen by tomorrow. Patient probably can be discharged tomorrow if there is improvement in serum sodium serum creatinine. Patient may need couple more days of doxycycline. subjective 11/24/2018 pt today sodium worsened from 127 to 124, pt with no headacle or weankess or abnormal movement or seizure like activity . nephrology team were consulted , mostly due to hypovolemia from excessive diuresis, pt diurectic were held as well as iv fluid and pt was placed on fluid restriction . hydralazine prn for hypertension .pt is with no chest pain , no dyspnea , no change in urine or bowel habit , no nausea or vomiting , no abd pain , she is tolerating diet well . no fever. pt is been followed as well by cardiology and pulmonary 11/25/2018 Patient is awake but tired today. She still have some secretions and dyspnea. On examination she has coarse crepitation associated with cough and yellowish phlegm. Vitals are stable and patient is afebrile, saturating 94% in severity to her. Sodium is slightly worse today at 123, nephrology input is appreciated and recommended a sodium tablets. Also incentive spirometry as provided for the patient. Keep monitoring for sodium. 11/26/2018 Patient sodium went down to 120 yesterday, she got 1 dose of samsa , as per nephrology team following the patient closely. Patient today she feels a little bit better and her sodium improved to 126. Creatinine 1.3. No chest pain or dyspnea. Her cough is better and she is using incentive spirometry. No much of leg edema. Vitals are stable. Patient remains on fluid restriction 1201st day. 11/27/2018 Patient is feeling better today with and she said she slept well last night. Her breathing is improving. No chest pain. Patient is a breathing, now with no difficulty and back to baseline. Her weakness looks better as well. Sodium went up to 128, creatinine is increased as well to 1.9. Pending nephrology further recommendation. Objective - Vital Signs Vital signs: Vital Signs Temp 97.9 F 11/27/18 03:45 Pulse 77 11/27/18 03:45 Resp 18 11/27/18 03:45 BP 115/60 11/27/18 03:45 Pulse Ox 97 11/27/18 03:45 Intake & Output 11/26/18 11/27/18 11/27/18 18:59 06:59 18:59 Intake Total 840 Output Total 300 Balance 840 -300 Weight 61 kg Intake: Oral 840 Output: Urine 300 Other: Voiding Method Toilet Toilet # Voids 1 - Exam GENERAL: The patient is alert and oriented x3, not in any acute distress. Well developed, well nourished. HEENT: Pupils are round and equally reacting to light. EOMI. No scleral icterus. No conjunctival pallor. Normocephalic, atraumatic. No pharyngeal erythema. No thyromegaly. CARDIOVASCULAR: S1 and S2 present. No murmurs, rubs, or gallops. No JVD PULMONARY: Expiratory wheezing improved in good air entry today but still has very minimal wheeze ABDOMEN: Soft, nontender, nondistended, normoactive bowel sounds. No palpable organomegaly. MUSCULOSKELETAL: No joint swelling or deformity. EXTREMITIES: No cyanosis, clubbing, or pedal edema. NEUROLOGICAL: Gross neurological examination did not reveal any focal deficits. SKIN: No rashes. - Labs CBC & Chem 7: 11/23/18 06:10 11/27/18 05:54 Labs: Abnormal Lab Results - Last 24 Hours (Table) 11/26/18 11/26/18 11/27/18 Range/Units 06:44 16:30 05:54 Sodium 126 L 126 L 128 L (137-145) mmol/L Chloride 94 L 94 L (98-107) mmol/L BUN 44 H 50 H (7-17) mg/dL Creatinine 1.36 H 1.96 H (0.52-1.04) mg/dL Assessment and Plan Assessment: -hypovolemic hyponatremia, hold diurtic and iv fluid, continue with fluid restriction as per nephrology recommendation -Acute kidney injury, nephrology team R following the case closely and we will follow the recommendation. -Shortness of breath, palpitations anginal equal: , possible non-ST elevation myocardial infarction, patient underwent cardiac catheterization catheterization reports as mentioned above no critical stenosis but diffuse atherosclerotic vasc ular disease -congestive heart failure, patient has chronic systolic dysfunction with acute exacerbation patient says serum sodium has gone down serum creatinine went up to because of which a 6 is being held. Patient most probably had hypertensive emergency -Atrial fibrillation new onset started on Eliquis patient is on amiodarone -COPD with mild acute exacerbation patient was started on inhaled steroids inhalational treatments patient was started on doxycycline for bronchitis patient is better regarding this perspective -Renal failure acute: Secondary to excessive diuretic therapy will , hold off on Lasix, patient will be started on IV fluids -Uncontrolled accelerated hypertension patient possibly had hypertensive emergency on admission blood pressure improved now
[2018-11-28] MEDS: CARVEDILOL 12.5 MG TAB PO SCH ×2 (08:29→16:30)
[2018-11-28] MEDS: guaiFENesin 600 MG TABLET.ER PO SCH ×2 (08:29→20:34)
[2018-11-28] MEDS: PANTOPRAZOLE 40 MG TABLET PO SCH (08:29)
[2018-11-28] MEDS: amLODIPine 5 MG TAB PO SCH ×2 (08:30→20:35)
[2018-11-28] MEDS: hydrALAZINE HCL 25 MG TAB PO SCH ×2 (08:30→20:34)
[2018-11-28] MEDS: APIXABAN 2.5 MG TABLET PO SCH ×2 (08:30→20:35)
[2018-11-28] MEDS: AMIODARONE 200 MG TAB PO SCH ×3 (08:30→20:35)
[2018-11-28] MEDS: predniSONE 20 MG TAB PO SCH (08:30)
--- NOTE | 2018-11-28 11:00 | P.PN ---
Subjective Progress Note Date: 11/28/18 Seen and examined for the follow-up of hypernatremia and acute kidney injury. Denies any nausea vomiting diarrhea. No acute distress. Objective - Vital Signs Vital signs: Vital Signs Temp 98.8 F 11/28/18 04:00 Pulse 64 11/28/18 08:00 Resp 16 11/28/18 08:00 BP 101/60 11/28/18 08:00 Pulse Ox 96 11/28/18 08:00 Intake & Output 11/27/18 11/28/18 11/28/18 18:59 06:59 18:59 Intake Total 236 200 Output Total 700 Balance -464 200 Intake: Oral 236 200 Output: Urine 700 Other: Voiding Method Toilet - Exam No acute distress S1-S2 heard Lungs clear No edema - Labs CBC & Chem 7: 11/23/18 06:10 11/28/18 06:31 Labs: Abnormal Lab Results - Last 24 Hours (Table) 11/28/18 Range/Units 06:31 Sodium 132 L (137-145) mmol/L BUN 61 H (7-17) mg/dL Creatinine 2.51 H (0.52-1.04) mg/dL Assessment and Plan Assessment: #1 acute kidney injury secondary to prerenal process from diuresis. #2 hyponatremia suspect hypovolemic #3 hypertension #4 atrial fibrillation Plan: #1 sodium improved but creatinine continue to worse. #2 check bladder scan to rule out urinary retention #3 continue to hold diuretics and Samsca #4 gentle IV hydration #5 labs in the morning
[2018-11-28] MEDS: SODIUM CHLORIDE TAB 1 GM TAB PO SCH ×2 (12:30→20:35)
--- NOTE | 2018-11-28 12:47 | P.PN ---
Subjective Progress Note Date: 11/28/18 This is a 83-year-old female with history of ischemic heart disease with previous stent placement done about 5 years ago. Apparently at that time patient of was having symptoms of shortness of breath that led for further evaluation and stent placement. Patient has done well over the last 5 years. It looks like that for the last several days patient has been having intermittent shortness of breath. Yesterday she was trying to climb status and started having shortness of breath that relieved after prolonged time with rest. Patient slept in the chair, Whole night. She did also take nitroglycerin sublingual at around 11 PM last night because he was having some discomfort. This morning at 5:00, her symptoms got worse and finally patient came to the emergency room. Patient was treated with Nitropaste and heparin with improvement of her symptoms. Patient is comfortable at this time. Her troponin values showed elevation, probably consistent with non-STEMI. Patient is advised to have a cardiac catheterization. Her EKG shows a left bundle-branch block pattern. At this point patient wants to wait until further tests come in, before deciding to have catheterization. We'll we will continue with beta blockers, nitrates, heparin and aspirin and probably Plavix. We'll wait for the results of the echocardiogram. Further recommendation will depend upon clinical course. Patient's daughter is also present during discussion with the patient. 11/19/2018 Patient was seen and examined this morning, underwent a cardiac catheterization yesterday which revealed mild diffuse coronary artery disease without any critical lesions.A she went into atrial fibrillation with rapid ventricular response through the night last night, continues to be in A. fib at this time. We have initiated IV amiodarone drip, and educated the patient regarding the need for anticoagulation. Patient also has a significant amount of wheezingtoday. She is quite eager to be discharged home however has been e ncouraged to stay in the hospital at least another 24 hours. 11/23/2018 Patient was seen and examined this morning, overall she is feeling well and quite eager to be discharged home. Her sodium level today is 127. She was recommended to stay in the hospital for at least another [address] Morgan plans on giving the patient some fluid, rechecking the sodium level in the morning. 11/24/2018 patient was seen and examined this morning, quite eager again to be discharged home however her sodium has dropped today to124. BUN is 32 creatinine 1.1. Nephrology consultation has been requested.I pressure 134/68 with a heart rate in the 60s, 92% on 2 L of oxygen. 11/25/2018 Patient was seen and examined this morning, sitting up in the chair, overall she feels well, her sodium did drop again today to 123. A nephrology consultation was requested yesterday, the recommendation is to restrict the fluids, he also started low dose of Lasix. From our recommendation we will also discontinue the lisinopril today. 11/26/2018 Patient was seen and examined this morning, continues to feel tired, complaining of a purple tongue this morning. She still did not sleep last night, was not given her sleeping pill either. Sodium 126, potassium 4.6, BUN 44 creatinine 1.3, magnesium 1.9. Patient was on doxycycline which we'll discontinue, we will give her some nystatin swish and swallow for her mouth. We will also make her Ambien a scheduled dose in the evening instead of when necessary. 11/28/2018 Patient was seen and examined this morning, overall she feels well, hemodynamically she stable. Blood pressure 102/60 with a heart rate in the 60s, 95% on room air. Sodium 132 today, BUN is up to 61 and creatinine 2.5. Nephrology is recommending some hydration, and also holding off on the Aldactone at this time. Objective - Vital Signs Vital signs: Vital Signs Temp 98.8 F 11/28/18 04:00 Pulse 59 L 11/28/18 12:00 Resp 16 11/28/18 12:00 BP 100/66 11/28/18 12:00 Pulse Ox 95 11/28/18 12:00 Intake & Output 11/27/18 11/28/18 11/28/18 18:59 06:59 18:59 Intake Total 236 200 Output Total 700 210 Balance -464 -10 Intake: Oral 236 200 Output: Urine 700 110 Post Void Residual 100 Other: Voiding Method Toilet Toilet # Voids 1 - Exam GENERAL EXAM: Patient is alert and oriented and doesn't appear to be in any acute distress HEENT: Normocephalic. Normal reaction of pupils, equal size, normal range of extraocular motion. No erythema or exudates in the throat. Purple tongue NECK: No masses, no nuchal rigidity. CHEST: No chest wall deformity. LUNGS: lungs reveal scattered wheezes with coarse rhonchi throughout. HEART: S1 and S2 irregularly irregular. ABDOMEN: No hepatosplenomegaly, normal bowel sounds, no guarding or rigidity. SKIN: No rashes CENTRAL NERVOUS SYSTEM: No focal deficits. EXTREMITIES: No cyanosis, clubbing or edema. Right groin soft, no evidence of any hematoma. - Labs CBC & Chem 7: 11/23/18 06:10 11/28/18 06:31 Labs: Abnormal Lab Results - Last 24 Hours (Table) 11/28/18 Range/Units 06:31 Sodium 132 L (137-145) mmol/L BUN 61 H (7-17) mg/dL Creatinine 2.51 H (0.52-1.04) mg/dL Assessment and Plan Plan: assessment and plan #1 shortness of breath with associated palpitations and chest discomfort, status post cardiac catheterization which did not reveal any significant obstructive coronary artery disease. #2 atrial fibrillation, paroxysmal, currently in normal sinus rhythm. #3 acute on chronic renal failure 4 hypertension #5 hyponatremia Plan From cardiology's perspective, we will recommend to continue current medications, should patient is currently receiving hydration at 75 an hour, and her Aldactone has been placed on hold. DNP note has been reviewed, I agree with a documented findings and plan of care. Patient was seen and examined.
[2018-11-28] MEDS: ASPIRIN 81 MG PO SCH (20:34)
[2018-11-28] MEDS: ATORVASTATIN 10 MG TAB PO SCH (20:35)
[2018-11-28] MEDS: ZOLPIDEM 5 MG TAB PO PRN (23:19)
[2018-11-29] MEDS: SODIUM CHLORIDE 0.9% 1,000 ML IV SCH ×3 (04:50→19:30)
[2018-11-29] MEDS: SYMBICORT 160-4.5 MCG INHALER INHALATION SCH ×2 (07:38→20:31)
[2018-11-29 07:40] LABS: Calcium 8.7 mg/dL (8.4-10.2); Potassium 5.1 mmol/L (3.5-5.1)
[2018-11-29] MEDS: predniSONE 20 MG TAB PO SCH (09:34)
[2018-11-29] MEDS: CARVEDILOL 12.5 MG TAB PO SCH ×2 (09:35→17:05)
[2018-11-29] MEDS: amLODIPine 5 MG TAB PO SCH ×2 (09:35→20:20)
[2018-11-29] MEDS: AMIODARONE 200 MG TAB PO SCH ×3 (09:35→23:09)
[2018-11-29] MEDS: hydrALAZINE HCL 25 MG TAB PO SCH ×2 (09:35→23:09)
[2018-11-29] MEDS: SODIUM CHLORIDE TAB 1 GM TAB PO SCH ×2 (09:35→20:25)
[2018-11-29] MEDS: PANTOPRAZOLE 40 MG TABLET PO SCH (09:35)
[2018-11-29] MEDS: APIXABAN 2.5 MG TABLET PO SCH ×2 (09:35→20:20)
[2018-11-29] MEDS: guaiFENesin 600 MG TABLET.ER PO SCH ×2 (09:39→20:20)
[2018-11-29 11:11] LABS: Basophils % (A) 0 %; Eosinophils # (A) 0.1 k/uL (0-0.7); Eosinophils % (A) 1 %; HCT 30.3 % (34.0-46.0); Lymphocytes # (A) 1.5 k/uL (1.0-4.8); Lymphocytes % (A) 14 %; MCHC 31.6 g/dL (31.0-37.0); Mean Platelet Volume 7.3; Monocytes # (A) 0.6 k/uL (0-1.0); Monocytes % (A) 6 %; Neutrophils # (A) 8.3 k/uL (1.3-7.7); Neutrophils % (A) 78 %; Platelet Count 401 k/uL (150-450); RBC 3.19 m/uL (3.80-5.40); RDW 13.7 % (11.5-15.5); WBC 10.6 k/uL (3.8-10.6)
--- NOTE | 2018-11-29 11:28 | PN ---
PROGRESS NOTE DATE OF SERVICE: 11/28/2018 HISTORY: This is an 83-year-old woman who was admitted with multiple medical issues including shortness of breath also had hypovolemic hyponatremia. The patient also acute kidney injury. Patient also possibly had acute non ST elevation myocardial infarction. The cardiac cath showed no critical stenosis. Patient also has multiple medical issues. Patient closely monitored. Multiple consultants are following the patient closely. PAST MEDICAL HISTORY: Reviewed. REVIEW OF SYSTEMS: CARDIOVASCULAR: No angina or palpitations. RESPIRATION: As mentioned earlier. GI: As mentioned earlier. no dysuria. CENTRAL NERVOUS SYSTEM: No numbness or weakness. MEDICATIONS: Reviewed and include: 1. DuoNeb q.i.d. and p.r.n. 2. Cordarone 200 mg t.i.d. 3. Norvasc 5 mg p.o. b.i.d. 4. Eliquis 2.5 mg b.i.d. 5. Aspirin 81 mg q.h.s. 6. Lipitor 10 mg q.h.s. 7. Tessalon Perles. 8. Symbicort 160/4.5 two puffs b.i.d. 9. Coreg 12.5 mg b.i.d. 10.Mucinex 600 mg p.o. b.i.d. 11.Apresoline 10 mg q.4 p.r.n. 12.Nitrostat 0.4 sublingual p.r.n. 13.Protonix 40 mg daily. 14.Prednisone 10 mg daily. 15.Ambien 5 mg q.h.s. p.r.n. PHYSICAL EXAM: Patient is alert, oriented x3. The pulse is 65, blood pressure is 125/58, respiration 18, temperature 97.2, pulse ox 94% on room air. HEENT: Conjunctivae normal. Neck: No jugular venous distention. Cardiovascular: S1, S2 muffled. Respiration: Breath sounds diminished in the bases. Bilateral scattered rhonchi and crackles. ABDOMEN: Soft, nontender. LEGS: No edema. No swelling. Nervous system: No focal deficits. LABS: Sodium 132 and potassium 2.5. Other labs noted. Chest x-ray noted. ASSESSMENT: 1. Hypovolemic hyponatremia. 2. Acute kidney injury secondary to prerenal factors. 3. Shortness of breath, possibly anginal equivalent. Possible acute non ST segment elevation myocardial infarction, status post cardiac cath showing diffuse arthrosclerotic vascular disease. No increase in stenosis. 4. Congestive heart failure with chronic systolic dysfunction with acute on chronic systolic dysfunction. 5. Atrial fibrillation, new onset. 6. Chronic obstructive pulmonary disease, mild acute exacerbation. 7. Renal failure acute. Possibly contrast induced nephropathy. 8. Uncontrolled accelerated hypertensive urgency. 9. History of basal cell carcinoma. 10.History of irritable bowel syndrome. 11.History of coronary artery disease/stent. 12.History of anxiety. 13.FULL CODE. RECOMMENDATION AND DISCUSSION: This 83-year-old woman who presented with multiple complex medical issues, we will monitor the patient closely. Continue the current medications, management and symptomatic treatment. Otherwise, we will monitor the creatinine closely. IV fluids have been initiated. The contrast induced nephropathy also to be considered. We will continue to monitor. Closely monitor with Nephrology. Guarded prognosis because of multiple complex medical issues. Further recommendations to follow. We will continue with gentle IV hydration. MMODL / IJN: [id number] /
[2018-11-29 11:35] LABS: HGB 9.6 gm/dL (11.4-16.0)
--- NOTE | 2018-11-29 13:59 | P.PN ---
Subjective Progress Note Date: 11/29/18 Seen and examined for the follow-up of hypornatremia and acute kidney injury. Denies any nausea vomiting diarrhea. No acute distress. Objective - Vital Signs Vital signs: Vital Signs Temp 97.4 F L 11/29/18 03:43 Pulse 61 11/29/18 12:00 Resp 16 11/29/18 12:00 BP 120/58 11/29/18 12:00 Pulse Ox 96 11/29/18 12:00 Intake & Output 11/28/18 11/29/18 11/29/18 18:59 06:59 18:59 Intake Total 280 280 Output Total 210 650 Balance 70 -370 Weight 62.4 kg Intake: Oral 280 280 Output: Urine 110 650 Post Void Residual 100 Other: Voiding Method Toilet Toilet Toilet # Voids 4 1 3 # Bowel Movements 1 - Exam No acute distress S1-S2 heard Lungs clear No edema - Labs CBC & Chem 7: 11/29/18 06:14 11/29/18 06:14 Labs: Abnormal Lab Results - Last 24 Hours (Table) 11/29/18 11/29/18 Range/Units 06:14 06:14 RBC 3.19 L (3.80-5.40) m/uL Hgb 9.6 L D (11.4-16.0) gm/dL Hct 30.3 L (34.0-46.0) % Neutrophils # 8.3 H (1.3-7.7) k/uL Sodium 136 L (137-145) mmol/L BUN 63 H (7-17) mg/dL Creatinine 2.89 H (0.52-1.04) mg/dL Assessment and Plan Assessment: #1 acute kidney injury secondary to prerenal process from diuresis. He had kidney and continue to worsen #2 hyponatremia suspect hypovolemic, better with IV fluids #3 hypertension #4 atrial fibrillation Plan: #1 sodium improved but creatinine continue to worse. Check bladder scan to rule out urinary retention. #2 check renal ultrasound. Urine analysis was [place] yesterday. #3 continue to hold diuretics and Samsca #4 gentle IV hydration #5 labs in the morning
--- NOTE | 2018-11-29 14:53 | US ---
EXAMINATION TYPE: US kidneys/renal and bladder DATE OF EXAM: 11/29/2018 COMPARISON: NONE CLINICAL HISTORY: obstruction. EXAM MEASUREMENTS: Right Kidney: 9.1 x 3.2 x 3.8 cm Left Kidney: 8.3 x 3.5 x 3.5 cm Right Kidney: No hydronephrosis or masses seen Left Kidney: No hydronephrosis or masses seen Bladder: Not distended, patient voided just before exam Bilateral Jets seen: No There is no evidence for hydronephrosis at this point in time. No nephrolithiasis is seen. No aldo s are identified. IMPRESSION: There is renal atrophy. No renal mass or obstruction. Bladder was empty during the exam.
[2018-11-29] MEDS: ASPIRIN 81 MG PO SCH (20:20)
[2018-11-29] MEDS: ATORVASTATIN 10 MG TAB PO SCH (20:20)
--- NOTE | 2018-11-29 23:04 | PN ---
PROGRESS NOTE . DATE OF SERVICE: 11/29/2018 This 83-year-old woman who was admitted with hypovolemic hyponatremia, also had acute kidney injury. Patient had a cardiac catheterization. The creatinine has worsened slightly today to 2.89 from 2.51 and BUN is also increased to 63. Nephrology has seen the patient and recommended cautious IV fluids. Patient also had abdominal bladder ultrasound which showed renal atrophy. No renal mass was noted. The patient being closely monitored. PAST MEDICAL HISTORY: Reviewed. REVIEW OF SYSTEMS: CARDIOVASCULAR system: No angina or palpitations. RESPIRATION: As mentioned earlier. As mentioned earlier. GI: As mentioned earlier. CURRENT MEDICATIONS ARE: Reviewed and include: 1. DuoNeb q.i.d. and p.r.n. 2. Cordarone 200 mg p.o. t.i.d. 3. Norvasc 5 mg p.o. b.i.d. 4. Eliquis 2.5 mg b.i.d. 5. Aspirin 81 mg b.i.d. 6. Lipitor 10 mg q.h.s. 8. Symbicort 160/4.5 two puffs b.i.d. 9. Coreg 12.5 mg b.i.d. 10.Mucinex 600 mg p.o. b.i.d. 11.Apresoline 10 mg IV q.4 p.r.n. 12.Apresoline 25 mg p.o. b.i.d. 13.Nitrostat 0.4 sublingually p.r.n. 14.Protonix 40 mg daily. 15.Prednisone 10 mg daily. 16.Sodium chloride 1 g b.i.d. 17.Ambien p.r.n. PHYSICAL EXAM: Patient is alert, oriented x3. Pulse 61, blood pressure 120/58, respirations 16, temperature normal, pulse ox 98% on room air. HEENT: Conjunctivae normal. NECK: No jugular venous distention. CARDIOVASCULAR: S1, S2 muffled. RESPIRATORY: Breath sounds diminished in the bases. Bilateral scattered rhonchi and crackles. ABDOMEN: Soft, nontender. LEGS: No edema. No swelling. NERVOUS SYSTEM: Higher functions as mentioned earlier. Moves all four limbs. No focal motor or sensory deficits. LYMPHATICS: No lymph nodes palpable in the neck, axillae or groin. SKIN: No ulcer, rash or bleeding. JOINTS: No active deforming arthropathy. LAB STUDIES: WBCntd hemoglobin 10.2. Creatinine is 2.89. ASSESSMENT: 1. Hypovolemic hyponatremia, possibly. 2. Acute kidney injury secondary to prerenal factors. 3. Shortness of breath, possible anginal and possible acute non ST elevation myocardial infarction status post cardiac cath showing diffuse atherosclerotic vascular disease. No increased stenosis. 4. Congestive heart failure with chronic systolic dysfunction with possible also with acute on chronic systolic dysfunction. 5. Atrial fibrillation, new onset. 6. Possible contrast nephropathy. 7. Chronic obstructive pulmonary disease, mild acute exacerbation. 8. Acute renal failure. 9. Uncontrolled accelerated hypertensive urgency. 10.History of basal cell carcinoma. 11.History of irritable bowel syndrome. 12.History of coronary artery disease, stent. 13.History of anxiety. 14.FULL CODE. RECOMMENDATIONS AND DISCUSSION: Recommend to continue current medications, continue to monitor, management, symptomatic treatment. Otherwise, at this time, I recommend monitor creatinine closely. Cautious IV fluids. Otherwise, closely follow with multiple consultants. I would also recommend a portable chest x-ray as well in the morning. Otherwise, the prognosis guarded because of multiple complex medical issues. Further recommendations to follow. See orders for details. MMODL / IJN: [id number] / MTDD
[2018-11-30 02:06] VITALS: RESP 16
[2018-11-30] MEDS: SODIUM CHLORIDE 0.9% 1,000 ML IV SCH (04:09)
[2018-11-30 04:18] VITALS: TEMP 97.7
[2018-11-30] MEDS: CARVEDILOL 12.5 MG TAB PO SCH (06:21)
[2018-11-30] MEDS: PANTOPRAZOLE 40 MG TABLET PO SCH (06:21)
[2018-11-30 07:06] LABS: Basophils % (A) 0 %; Eosinophils # (A) 0.1 k/uL (0-0.7); Eosinophils % (A) 1 %; HCT 28.7 % (34.0-46.0); HGB 9.3 gm/dL (11.4-16.0); Lymphocytes # (A) 1.2 k/uL (1.0-4.8); Lymphocytes % (A) 11 %; MCH 30.3 pg (25.0-35.0); MCHC 32.4 g/dL (31.0-37.0); MCV 93.4 fL (80.0-100.0); Mean Platelet Volume 7.4; Monocytes # (A) 0.5 k/uL (0-1.0); Monocytes % (A) 5 %; Neutrophils # (A) 8.2 k/uL (1.3-7.7); Neutrophils % (A) 81 %; Platelet Count 364 k/uL (150-450); RBC 3.07 m/uL (3.80-5.40); RDW 14.1 % (11.5-15.5); WBC 10.1 k/uL (3.8-10.6)
[2018-11-30 07:18] LABS: Calcium 8.5 mg/dL (8.4-10.2); Potassium 5.2 mmol/L (3.5-5.1)
[2018-11-30] MEDS: guaiFENesin 600 MG TABLET.ER PO SCH (09:00)
[2018-11-30] MEDS: SODIUM CHLORIDE TAB 1 GM TAB PO SCH (09:00)
[2018-11-30] MEDS: predniSONE 20 MG TAB PO SCH (09:01)
[2018-11-30] MEDS: amLODIPine 5 MG TAB PO SCH (09:01)
[2018-11-30] MEDS: APIXABAN 2.5 MG TABLET PO SCH (09:01)
[2018-11-30] MEDS: hydrALAZINE HCL 25 MG TAB PO SCH (09:01)
[2018-11-30] MEDS: AMIODARONE 200 MG TAB PO SCH (09:01)
[2018-11-30] MEDS: SYMBICORT 160-4.5 MCG INHALER INHALATION SCH (09:12)
--- NOTE | 2018-11-30 10:54 | XR ---
EXAMINATION TYPE: XR chest 1V portable DATE OF EXAM: 11/30/2018 COMPARISON: Prior chest x-ray 11/20/2018 HISTORY: Congestive heart failure TECHNIQUE: Single frontal view of the chest is obtained. FINDINGS: There is no focal air space opacity or pneumothorax seen. There is persistent blunting the costophrenic angles. The cardiac silhouette size is stable, enlarged. The aorta is dense, there are overlying cardiac leads. The osseous structures are intact. IMPRESSION: Cardiomegaly. Hyperinflation may causing blunting the costophrenic angles, difficult to exclude small amount of effusion.
--- NOTE | 2018-11-30 11:01 | P.PN ---
Subjective Patient is seen in follow-up for acute kidney injury and hyponatremia. Sodium level is 137 today. Creatinine peaked at 2.8 and this admission. It is 2.54 today. Oral intake is gradually improving. No vomiting or diarrhea. No edema. Denies chest pain or shortness of breath. Currently maintained on NS at 75 cc/hr. Vital signs are stable. General: The patient appeared well nourished and normally developed. HEENT: Head exam is unremarkable. Neck is without jugular venous distension. LUNGS: Lungs are clear to auscultation and percussion. Breath sounds decreased. HEART: Rate and Rhythm are regular. First and second heart sounds normal. No murmurs, rubs or gallops. ABDOMEN: Abdominal exam reveals normal bowel sounds. Non-tender and non- distended. No evidence of peritonitis. EXTREMITITES: No clubbing, cyanosis, or edema. Objective - Vital Signs Vital signs: Vital Signs Temp 97.7 F 11/30/18 04:00 Pulse 58 L 11/30/18 08:00 Resp 16 11/30/18 08:00 BP 117/55 11/30/18 08:00 Pulse Ox 97 11/30/18 08:00 Intake & Output 11/29/18 11/30/18 11/30/18 18:59 06:59 18:59 Intake Total 600 118 Output Total 650 Balance -50 118 Weight 64.1 kg Intake: Oral 600 118 Output: Urine 650 Other: Voiding Method Toilet Toilet # Voids 5 1 # Bowel Movements 1 - Labs CBC & Chem 7: 11/30/18 06:37 11/30/18 06:37 Labs: Abnormal Lab Results - Last 24 Hours (Table) 11/29/18 11/30/18 11/30/18 Range/Units 06:14 06:37 06:37 RBC 3.19 L 3.07 L (3.80-5.40) m/uL Hgb 9.6 L D 9.3 L (11.4-16.0) gm/dL Hct 30.3 L 28.7 L (34.0-46.0) % Neutrophils # 8.3 H 8.2 H (1.3-7.7) k/uL Potassium 5.2 H (3.5-5.1) mmol/L BUN 68 H (7-17) mg/dL Creatinine 2.54 H (0.52-1.04) mg/dL Assessment and Plan Plan: Assessment: 1. Acute kidney injury mostly prerenal secondary to diuresis. Patient has received multiple doses of Samsca this admission. Creatinine peaked at 2.89 and is 2.54 today. Creatinine was 0.83 in April 2014. No evidence of hydr onephrosis noted on renal ultrasound. Left kidney is 8.3 cm which is smaller in size. Right kidney is 9.1 cm. 2. Chest pain. Status post cardiac catheterization on November 18. No significant lesions noted. 3. A. fib with RVR. Now on oral amiodarone and anticoagulation. Rate controlled. 4. Benign hypertension. Blood pressures controlled. 5. Hyponatremia. Patient appears euvolemic. 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 Urine sodium is low at 16 and urine osmolality high as 685. Repeat urine osmolality was 148. TSH was mildly elevated. Cortisol level normal. Uric acid level normal. Patient denies history of malignancy. Plan: Maintain normal saline at 75 mL an hour for now. Maintain 1200 mL fluid restriction. Encouraged oral intake, particularly solute. Maintain sodium chloride tablets. Avoid diuretics. F/u PTH related peptide. Hold antihypertensives if systolic blood pressure less than 120.
[2018-11-30 12:35] VITALS: BP 140/62; PULSE 64
--- NOTE | 2018-11-30 22:46 | DS ---
DISCHARGE SUMMARY FINAL DIAGNOSES: 1. Acute kidney injury secondary to prerenal renal factors as well as possible contrast nephropathy. 2. Hypovolemic hyponatremia. 3. Shortness of breath, possible anginal equivalent, and possible acute [id number]- elevation myocardial infarction, status post cardiac catheterization showing diffuse atherosclerotic vascular disease with no increased stenosis. 4. History of congestive heart failure with acute on chronic systolic dysfunction. 5. Atrial fibrillation, new onset, uncontrolled. 6. Chronic obstructive pulmonary disease, mild acute exacerbation. 7. Acute renal failure. 8. Uncontrolled accelerated hypertensive urgency. 9. History of basal cell carcinoma. 10.History of irritable bowel syndrome. 11.History of coronary artery disease, stent. 12.History of anxiety. 13.FULL CODE. DISCHARGE DISPOSITION: The patient will be discharged in stable condition with guarded prognosis. Total time taken 35 minutes. HISTORY OF PRESENT ILLNESS: This 83-year-old woman with a past medical history of multiple medical problems was admitted with shortness of breath, anginal equivalent, and multiple other medical problems as mentioned earlier. Patient also had hypovolemic hyponatremia. Patient also had acute kidney injury, possibly thought to be multifactorial, treated symptomatically. Patient improved significantly. Patient also had cardiac catheterization which showed diffuse coronary artery disease. On exam, vitals are stable. CARDIOVASCULAR: S1, S2 muffled. RESPIRATORY SYSTEM: No rhonchi. No crackles.. ABDOMEN: Soft. NERVOUS SYSTEM: No focal deficit. Lab-valenzuela, the creatinine is 2.54, potassium 5.2. WBC 10.1, hemoglobin 9.3. I recommend the patient to follow up closely with primary physician and Nephrology in the outpatient setting. Nephrology saw the patient and cleared the patient for discharge as well as Cardiology. DISCHARGE ADVICE AND MEDICATIONS: 1. Diet is cardiac. 2. Activity limited until followup. 3. Follow up with [facility] in 2-3 days. 4. Follow up with Dr. Santos, Dr. Ortez and Dr. Whitt as recommended. 5. Ecotrin 81 mg at bedtime. 6. Lipitor 10 mg p.o. at bedtime. 7. Nitrostat 0.4 sublingually p.r.n. 8. Hydralazine 25 mg p.o. b.i.d. 9. Cordarone 200 mg p.o. t.i.d. 10.Coreg 12.5 mg b.i.d. 11.Eliquis 2.5 mg p.o. b.i.d. 12.Mucinex 600 mg p.o. b.i.d. 13.Norvasc 5 mg p.o. b.i.d. 14.Protonix 40 mg with breakfast. 15.Sodium bicarb 1 gram p.o. b.i.d. 16.Symbicort 160/4.5 two puffs b.i.d. Once again, the patient will be discharged in stable condition with guarded prognosis. MMODL / IJN: [id number] /
== END 2018-11-30 13:44 | disposition home or self-care (01) | DRG 280 ==
LOC: EC 06:14 → 3SCARD 08:20
PROVIDERS: ADMIT Internal Medicine; ATTEND Internal Medicine
PROC: B2111ZZ Fluoroscopy of Multiple Coronary Arteries using Low Osmolar Contrast (ICD-10-PCS; 2018-11-18)
PROC: 4A023N7 Measurement of Cardiac Sampling and Pressure, Left Heart, Percutaneous Approach (ICD-10-PCS; principal; 2018-11-18 14:15)
DX: I21.4 Non-ST elevation (NSTEMI) myocardial infarction (principal); I50.23 Acute on chronic systolic (congestive) heart failure; E22.2 Syndrome of inappropriate secretion of antidiuretic hormone; I13.0 Hypertensive heart and chronic kidney disease with heart failure and stage 1 through stage 4 chronic kidney disease, or unspecified chronic kidney disease; I16.1 Hypertensive emergency; I48.1 Persistent atrial fibrillation; J44.1 Chronic obstructive pulmonary disease with (acute) exacerbation; N17.9 Acute kidney failure, unspecified; N18.4 Chronic kidney disease, stage 4 (severe); E78.5 Hyperlipidemia, unspecified; E86.1 Hypovolemia; I25.10 Atherosclerotic heart disease of native coronary artery without angina pectoris; I25.5 Ischemic cardiomyopathy; I44.7 Left bundle-branch block, unspecified; I48.2 Chronic atrial fibrillation; K58.9 Irritable bowel syndrome, unspecified; N14.1 Nephropathy induced by other drugs, medicaments and biological substances; T50.2X5A Adverse effect of carbonic-anhydrase inhibitors, benzothiadiazides and other diuretics, initial encounter; T50.8X5A Adverse effect of diagnostic agents, initial encounter; Z79.02 Long term (current) use of antithrombotics/antiplatelets; Z79.82 Long term (current) use of aspirin; Z79.899 Other long term (current) drug therapy; Z80.0 Family history of malignant neoplasm of digestive organs; Z81.8 Family history of other mental and behavioral disorders; Z85.828 Personal history of other malignant neoplasm of skin; Z87.891 Personal history of nicotine dependence; Z95.5 Presence of coronary angioplasty implant and graft; Z98.42 Cataract extraction status, left eye; Z98.41 Cataract extraction status, right eye; Z96.1 Presence of intraocular lens; Z81.1 Family history of alcohol abuse and dependence; Z82.0 Family history of epilepsy and other diseases of the nervous system; Z80.8 Family history of malignant neoplasm of other organs or systems; M19.90 Unspecified osteoarthritis, unspecified site; Z88.8 Allergy status to other drugs, medicaments and biological substances; R79.1 Abnormal coagulation profile; F41.9 Anxiety disorder, unspecified
CPT/HCPCS: 36415; 71045; 71046; 76770; 80048; 80053; 80061; 81003; 82533; 83605; 83735; 83880; 83930; 83935; 84295; 84300; 84439; 84443; 84484; 84550; 85025; 85027; 85049; 85379; 85610; 85730; 87040; 93005; 93306; 93458; 94640; 94760; 96365; 96366; 96367; 96375; 96376; 99291